=== PATIENT | male | born 1950 | race Caucasian/White ===

== ENCOUNTER 2020-02-04 14:48 | Outpatient (CLI) | payer MEDICARE, MEDICAID, SELFPAY ==
--- NOTE | 2020-02-04 14:58 | XRR_ITS ---
PROCEDURE INFORMATION: Exam: XR Right Femur Exam date and time: 02/04/2020 3:31 PM Age: 69 years old Clinical indication: Injury or trauma; Initial encounter; Swelling, leg or foot; Blunt trauma; Thigh or upper leg and knee and lower leg; Right; Injury details: Fall 1 week ago; Additional info: Right leg pain TECHNIQUE: Imaging protocol: XR Right femur. Views: 2 views. COMPARISON: CR XR knee RT 3V* [id number] 02/04/2020 3:05 PM FINDINGS: Bones/joints: No radiographic evidence of acute fracture or dislocation. Alignment anatomic. Mild degenerative changes. Soft tissues: Grossly unremarkable. XR/XR femur RT min 2V* [id number] IMPRESSION: No acute osseous abnormality.
--- NOTE | 2020-02-04 14:58 | XRR_ITS ---
PROCEDURE INFORMATION: Exam: XR Right Knee Exam date and time: 02/04/2020 3:02 PM Age: 69 years old Clinical indication: Injury or trauma; Initial encounter; Swelling, leg or foot; Blunt trauma; Knee; Right; Injury details: Fall 1 week ago; Additional info: Right knee leg pain TECHNIQUE: Imaging protocol: XR Right knee. Views: 3 views. COMPARISON: No relevant prior studies available. FINDINGS: Bones/joints: No radiographic evidence of acute fracture or dislocation. Alignment anatomic. Joint spaces preserved. Chondrocalcinosis. Small effusion. Soft tissues: Mild soft tissue swelling. XR/XR knee RT 3V* [id number] IMPRESSION: No acute osseous abnormality.
--- NOTE | 2020-02-04 14:58 | XRR_ITS ---
PROCEDURE INFORMATION: Exam: XR Right Tibia and Fibula Exam date and time: 02/04/2020 3:02 PM Age: 69 years old Clinical indication: Injury or trauma; Initial encounter; Swelling, leg or foot; Blunt trauma; Thigh or upper leg and knee and lower leg; Right; Injury details: Fall 1 week ago; Additional info: R leg pain TECHNIQUE: Imaging protocol: XR Right tibia and fibula. Views: 2 views. COMPARISON: CR XR knee RT 3V* [id number] 02/04/2020 3:05 PM FINDINGS: Bones/joints: No radiographic evidence of acute fracture or dislocation. Alignment anatomic. Joint spaces preserved. Soft tissues: Diffuse soft tissue swelling. XR/XR tibia fibula RT 2V [id number] IMPRESSION: No acute osseous abnormality.
== END 2020-02-04 14:49 | disposition home or self-care (01) ==
LOC: RAD 14:55
PROVIDERS: PCP Family Medicine; Visit Provider Family Medicine
DX: M79.604 Pain in right leg (principal); M25.561 Pain in right knee; M79.89 Other specified soft tissue disorders
CPT/HCPCS: 73552; 73562; 73590

== ENCOUNTER 2020-03-07 17:28 | Emergency (ER) | payer MEDICARE, MEDICAID, SELFPAY ==
[2020-03-07 17:29] VITALS: BP 117/65; PULSE 100; RESP 16; TEMP 36.8; O2SAT 97; BMI 31.9
--- NOTE | 2020-03-07 17:52 | XRR_ITS ---
PROCEDURE INFORMATION: Exam: XR Chest, 1 View Exam date and time: 03/07/2020 6:08 PM Age: 69 years old Clinical indication: Other: High hr, dizziness; Prior surgery; Surgery type: Cabg; Additional info: Dizziness, hypotension x 2 days TECHNIQUE: Imaging protocol: XR of the chest Views: 1 view. COMPARISON: CR Chest 1 [place] [id number] 04/26/2019 10:56 AM FINDINGS: No focal pulmonary consolidation is demonstrated on this single frontal image. No significant obscuration of the lateral costophrenic angles is demonstrated. No significant vascular congestion is demonstrated. Visualized cardiac silhouette size appears within normal limits. Thoracic aorta is unfolded. There are changes from median sternotomy. XR/XR chest 1V portable [id number] IMPRESSION: No acute pulmonary process is demonstrated.
--- NOTE | 2020-03-07 17:52 | ECG_ITS ---
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 Measurements Intervals [place] Rate: 97 P: 42 HI: 214 QRS: -8 QRSD: 152 T: 129 QT: 369 QTc: 471 Interpretive Statements SINUS RHYTHM WITH FIRST DEGREE AV BLOCK LEFT BUNDLE BRANCH BLOCK [120+ ms QRS DURATION, 80+ ms Q/S IN V1/V2, 85+ ms R IN I/aVL/V5/V6] Compared to ECG 04/26/2019 11:16:48 No significant changes Electronically Signed On 03-07-2020 20:13:57 CDT by Corina Edwards M.D. [id number]
[2020-03-07 18:27] LABS: Basophils # 0.1 10^3/uL (0.0-0.1); Basophils % 0.9 %; Eosinophils # 0.3 10^3/uL (0.0-0.8); Eosinophils % 3.8 %; Hematocrit 37.3 % (42.0-52.0); Hemoglobin 11.4 g/dL (11.7-16.6); Lymphocytes # 1.2 10^3/uL (0.8-4.8); Lymphocytes % 18.5 %; Mean Corpuscular HGB Conc 30.6 g/dL (30.0-36.0); Mean Corpuscular Hemoglobin 27.5 pg (28.0-34.0); Mean Corpuscular Volume 90.1 fL (80-94); Mean Platelet Volume 9.9 fL (7.4-10.4); Monocytes # 0.7 10^3/uL (0.2-0.9); Monocytes % 10.2 %; Neutrophils # 4.33 10^3/uL (1.8-7.7); Neutrophils % 66.1 %; Nucleated Red Blood Cells % 0 %; Platelet Count 277 10^3/cmm (130-400); Red Blood Count 4.14 10^6/uL (4.1-5.3); Red Cell Distribution Width 13.2 % (12.1-15.1); White Blood Count 6.6 10^3/uL (4.0-10.0)
--- NOTE | 2020-03-07 18:47 | ED_ITS ---
HPI - Dizziness General: Chief Complaint: Dizziness Stated Complaint: ELEVATED HR/ DIZZY Time Seen by Provider: 03/07/20 17:34 History of Present Illness: HPI Narrative: This patient is a 69-year-old gentleman who presents today with dizziness and fast heart rate. He has a history of some cardiac problems and saw Dr. Ramos a few weeks ago. He told him that he been having some chest pains off and on and Dr. Ramos prescribed some isosorbide mononitrate. The patient was not sure he wanted to take it and so has not been taking it until today. He had some chest pains yesterday for which he took a regular sublingual nitro. He said today he was thinking about the chest pain and decided to call the pharmacist to ask about the medication. The pharmacist told him that the purpose of it was to prevent him from having those episodes of chest pain so he decided he would take it. Rather than taking the 1 pill that is prescribed he took 1-1/2 pills and crushed it before taking it. Shortly afterward he noted that he was quite dizzy and lightheaded. He took his blood pressure and his heart rate was high and his blood pressure was low. Eventually he decided that he should call the ambulance. They brought him in with heart rate of just over 100 and a blood pressure of 120 systolic. He reports that he is feeling better now. He says it has been about 3 hours since he took the medication. He realizes that what he did was not a good idea. He h as not had any chest pain today however. MD elicited complaint: dizziness and lightheadedness Onset (ago): hour(s) (3) Timing: sudden onset Severity: moderate Associated symptoms: Reports chest pain; Denies chills, headache(s), malaise, nausea or vomiting Associated neuro symptoms: Deny numbness in extremities Review of Systems General: Reports: 10 or more systems reviewed and unremarkable except in HPI and below Const: Denies: fever(s), chills, fatigue or malaise Eyes: Denies: change in vision ENMT: Denies: odynophagia Card: Reports: chest pain; Denies: swelling of feet/ankles Resp: Denies: dyspnea, productive cough or non-productive cough GI: Denies: abdominal pain, nausea or vomiting : Denies: flank pain Musc: Denies: neck pain or back pain Skin/Breast: Denies: rash Neuro: Denies: headache(s), numbness in extremities or weakness in extremities Noel/Lymph: Denies: easy bruising or easy bleeding PFSH ED PFSH: Medical History Anemia Arthritis Atypical chest pain Chest pain Chronic back pain Congestive heart failure Diastolic heart failure GI bleed Hypertension Transient ischemic attack Surgical History Aortic valve replaced H/O aortic valve replacement Hx of appendectomy Previous back surgery Family History Other Congenital heart disease Social History Smoking and tobacco status: former smoker Alcohol intake: current Alcohol intake frequency: 0-2 Drinks per Day Alcohol type: beer Physical Exam Const: COMMON NORMALS: no acute distress, patient oriented x3, no limitations and alert GENERAL APPEARANCE: cooperative and comfortable HENMT: HEAD & SCALP: normal to inspection FACE & SINUS: normal facial exam Eye: GENERAL EYE: appearance normal, both eyes and all related structures Neck/C-Spine: COMMON NORMALS: supple, no meningeal signs and no JVD Chest: COMMONS NORMALS: normal inspection of the chest Resp: COMMON NORMALS: normal respiratory effort, No use of accessory muscles and clear to auscultation bilaterally AUSCULTATION: clear to auscultation bilaterally Cardio: COMMON NORMALS: no JVD, regular rate and regular rhythm RATE: regular rate RHYTHM: regular rhythm HEART SOUNDS: Murmur heart sound present GI: COMMON NORMALS: Normal to inspection, nondistended, normoactive bowel sounds present, Soft to palpation and non-tender INSPECTION: Yes normal to inspection AUSCULTATION: Yes normoactive bowel sounds PALPATION: Yes Soft to palpation Back/Pelvis: COMMON NORMALS: thoracic and lumbar spine normal to inspection Extremity: COMMON NORMALS: normal to inspection Neuro: COMMON NORMALS: patient oriented x3, moves all extremities, no focal motor deficits and no sensory deficits noted SENSORIUM/ORIENTATION: Yes alert MENINGEAL SIGNS: Yes no meningeal signs Psych: COMMON NORMALS: mental status grossly normal, cooperative and normal affect Skin: COMMON NORMALS: no rashes or lesions noted and turgor normal GENERAL SKIN EXAM: no rashes or lesions noted and turgor normal Course Vital Signs: Vital signs: Vital Signs Temperature 98.3 F 03/07/20 17:29 Pulse Rate 79 03/08/20 00:01 Respiratory Rate 18 03/08/20 00:01 Blood Pressure 113/73 03/08/20 00:01 Pulse Oximetry 98 03/08/20 00:01 MDM - Dizziness MDM Narrative: Medical decision making narrative: Suspect his symptoms are related to taking too much, crushed isosorbide mononitrate. Work-up was benign. Between his 0 and 2-hour troponin he did have a delta of 4.5. This was borderline for some concern and so he agreed to wait for the third troponin. There was not a significant increase at that time. He was feeling well and his vital signs have been fine. He was eager to go home and was discharged. Lab Data: Labs: Lab Results 03/07/20 03/07/20 03/07/20 Range/Units 17:40 17:40 17:52 WBC 6.6 (4.0-10.0) 10^3/ uL RBC 4.14 (4.1-5.3) 10^6/u L Hgb 11.4 L (11.7-16.6) g/dL Hct 37.3 L (42.0-52.0) % MCV 90.1 (80-94) fL MCH 27.5 L (28.0-34.0) pg MCHC 30.6 (30.0-36.0) g/dL RDW 13.2 (12.1-15.1) % Plt Count 277 (130-400) 10^3/c mm MPV 9.9 (7.4-10.4) fL Neut % (Auto) 66.1 % Lymph % (Auto) 18.5 % [place] % (Auto) 10.2 % Eos % (Auto) 3.8 % Baso % (Auto) 0.9 % Neut # (Auto) 4.33 (1.8-7.7) 10^3/u L Lymph # (Auto) 1.2 (0.8-4.8) 10^3/u L [place] # (Auto) 0.7 (0.2-0.9) 10^3/u L Eos # (Auto) 0.3 (0.0-0.8) 10^3/u L Baso # (Auto) 0.1 (0.0-0.1) 10^3/u L Nucleated RBC % (a uto) 0 % Nucleated RBCs # 0.0 /100WBC Sodium 136 (136-145) mmol/L Potassium 3.5 (3.5-5.1) mmol/L Chloride 98 (98-107) mmol/L Carbon Dioxide 27 (22-29) mmol/L Anion Gap 14.5 (5-19) BUN 16 (8-23) mg/dL Creatinine 1.0 (0.7-1.2) mg/dL GFR Calculation 73.9 L (90-130) mL/min Glucose 139 H (65-115) mg/dL Calculated Osmolal ity 281 L (285-295) mOsm/k g Calcium 8.9 (8.5-10.5) mg/dL Total Bilirubin 0.2 (0.15-1.2) mg/dL AST 20 (0-40) U/L ALT 15 (0-41) U/L Alkaline Phosphata se 105 (40-130) IU/L Troponin T Baselin e 17 H (0-15) ng/L Troponin T 120 Min [place] (0-15) ng/L Delta Troponin T (0-10) ABS# Troponin T Hi Sens 6Hr (0-15) ng/L Troponin T Hi Sens 6Hr Delta (0-12) ng/L Total Protein 8.0 (6.6-8.7) g/dL Albumin 3.8 (3.5-5.2) g/dL Globulin 4.2 (1.3-4.6) g/dL Digoxin (0.6-1.2) ng/mL 03/07/20 03/07/20 03/07/20 Range/Units 20:02 20:02 22:55 WBC (4.0-10.0) 10^3/ uL RBC (4.1-5.3) 10^6/u L Hgb (11.7-16.6) g/dL Hct (42.0-52.0) % MCV (80-94) fL MCH (28.0-34.0) pg MCHC (30.0-36.0) g/dL RDW (12.1-15.1) % Plt Count (130-400) 10^3/c mm MPV (7.4-10.4) fL Neut % (Auto) % Lymph % (Auto) % [place] % (Auto) % Eos % (Auto) % Baso % (Auto) % Neut # (Auto) (1.8-7.7) 10^3/u L Lymph # (Auto) (0.8-4.8) 10^3/u L [place] # (Auto) (0.2-0.9) 10^3/u L Eos # (Auto) (0.0-0.8) 10^3/u L Baso # (Auto) (0.0-0.1) 10^3/u L Nucleated RBC % (a uto) % Nucleated RBCs # /100WBC Sodium (136-145) mmol/L Potassium (3.5-5.1) mmol/L Chloride (98-107) mmol/L Carbon Dioxide (22-29) mmol/L Anion Gap (5-19) BUN (8-23) mg/dL Creatinine (0.7-1.2) mg/dL GFR Calculation (90-130) mL/min Glucose (65-115) mg/dL Calculated Osmolal ity (285-295) mOsm/k g Calcium (8.5-10.5) mg/dL Total Bilirubin (0.15-1.2) mg/dL AST (0-40) U/L ALT (0-41) U/L Alkaline Phosphata se (40-130) IU/L Troponin T Baselin e (0-15) ng/L Troponin T 120 Min [place] 21.48 H (0-15) ng/L Delta Troponin T 4.48 (0-10) ABS# Troponin T Hi Sens 6Hr 22.11 H (0-15) ng/L Troponin T Hi Sens 6Hr Delta 5.11 (0-12) ng/L Total Protein (6.6-8.7) g/dL Albumin (3.5-5.2) g/dL Globulin (1.3-4.6) g/dL Digoxin 0.9 (0.6-1.2) ng/mL Discharge Plan Discharge Patient Disposition: Home Clinical Impression: Chest pain Qualifiers: Chest pain type: unspecified Qualified Code(s): R07.9 - Chest pain, unspecified Medication reaction Qualifiers: Encounter type: initial encounter Qualified Code(s): T50.905A - Adverse effect of unspecified drugs, medicaments and biological substances, initial encounter Condition: Stable Prescriptions: No Action nitroglycerin [Nitrostat] 0.4 mg tablet, sublingual 0.4 mg SUBLINGUAL Q5M PRNRF: 0 albuterol sulfate [ProAir HFA] 90 mcg/actuation HFA aerosol inhaler 2 puff INHALATION Q6H PRNRF: 0 digoxin 125 mcg (0.125 mg) tablet 125 mcg PO QDAY RF: 0 senna-docusate sodium Tablet PO .twice a day RF: 0 aspirin [Adult Low Dose Aspirin] 81 mg tablet,delayed release (DR/EC) 81 mg PO QDAY RF: 0 tamsulosin 0.4 mg capsule 0.4 mg PO QDAY RF: 0 hydromorphone [Dilaudid] 4 mg tablet 4 mg PO Q4H PRNRF: 0 alprazolam 0.25 mg tablet 0.5 mg PO BID PRN (Reason: anxiety) RF: 0 furosemide 20 mg tablet 40 mg PO QDAY RF: 0 morphine 200 mg tablet extended release 200 mg PO Q12H PRN (Reason: pain) RF: 0 potassium chloride 10 mEq tablet,ER particles/crystals 10 meq PO BID RF: 0 isosorbide mononitrate 30 mg tablet extended release 24 hr 30 mg PO DAILY 30 Days Qty: 30 RF: 5 metoprolol tartrate 25 mg tablet 25 mg PO DAILY PRN (Reason: hypertension) 30 Days Qty: 30 RF: 5 warfarin 5 mg tablet 5 mg PO DAILY RF: 0 magnesium oxide 400 mg magnesium tablet 400 mg PO BID Qty: 180 RF: 3 warfarin 3 mg tablet 3 mg PO DAILY Qty: 30 RF: 5 warfarin 2 mg tablet 2 mg PO DAILY 90 Days Qty: 90 RF: 3 warfarin 4 mg tablet 4 mg PO DAILY 90 Days Qty: 90 RF: 3 Discharge Orders: Discharge Order (Routine); Ordered 03/07/20 Ordered By: Cindy Slaughter Referrals: Jesus Nguyen MD [Primary Care Provider] - Discharge Diet: Usual diet Discharge Activity: Resume usual activity Patient Instructions: Chest Pain (ED) Activity Restrictions/Additional Instructions: Follow-up with your doctor for further evaluation if symptoms continue. Do take the isosorbide mononitrate but only as directed. Do not crush medications unless you check with the pharmacist first to see if it safe. Return to the emergency department for any new or worse symptoms. Discharge Date/Time: 03/08/20 00:03 Coding Level of Care Code ED Coat Operator for Adela Fwree Exam Comprehensive
[2020-03-07 19:43] LABS: Alanine Aminotransferase 15 U/L (0-41); Albumin Level 3.8 g/dL (3.5-5.2); Alkaline Phosphatase 105 IU/L (40-130); Anion Gap 14.5 (5-19); Aspartate Amino Transferase 20 U/L (0-40); Blood Urea Nitrogen 16 mg/dL (8-23); Calcium 8.9 mg/dL (8.5-10.5); Carbon Dioxide 27 mmol/L (22-29); Chloride 98 mmol/L (98-107); Globulin 4.2 g/dL (1.3-4.6); Glomerular Filtration Rate 73.9 mL/min (90-130); Glucose 139 mg/dL (65-115); Osmolality Calculated 281 mOsm/kg (285-295); Potassium 3.5 mmol/L (3.5-5.1); Sodium 136 mmol/L (136-145); Total Bilirubin 0.2 mg/dL (0.15-1.2)
[2020-03-07 19:44] LABS: Troponin(5th) Baseline 17 ng/L (0-15)
--- NOTE | 2020-03-07 19:52 | ECG_ITS ---
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 Measurements Intervals [place] Rate: 83 P: 12 RI: 216 QRS: -7 QRSD: 148 T: 121 QT: 371 QTc: 438 Interpretive Statements SINUS RHYTHM WITH FIRST DEGREE AV BLOCK LEFT BUNDLE BRANCH BLOCK [120+ ms QRS DURATION, 80+ ms Q/S IN V1/V2, 85+ ms R IN I/aVL/V5/V6] Compared to ECG 03/07/2020 17:42:57 No significant changes Electronically Signed On 03-07-2020 20:16:47 CDT by Corina Edwards M.D. [id number]
--- NOTE | 2020-03-07 19:56 | PC.NURSE ---
EKG done at 1953 and shown to ER doctor
[2020-03-07 20:24] LABS: Troponin 5 2HR 21.48 ng/L (0-15); Troponin 5 2HR Delta 4.48 ABS# (0-10)
[2020-03-07 21:09] LABS: Digoxin 0.9 ng/mL (0.6-1.2)
[2020-03-07 21:13] VITALS: RESP 16; O2SAT 99
[2020-03-07 21:16] VITALS: BP 100/59; PULSE 80; RESP 18; O2SAT 98
[2020-03-07 21:30] VITALS: BP 100/59; PULSE 81; RESP 17; O2SAT 96
[2020-03-07 22:30] VITALS: BP 109/65; PULSE 82; RESP 18; O2SAT 93
[2020-03-07 23:27] LABS: Troponin 5 6HR 22.11 ng/L (0-15); Troponin 5 6HR Delta 5.11 ng/L (0-12)
[2020-03-07 23:31] VITALS: BP 122/68; PULSE 81; RESP 16; O2SAT 94
[2020-03-08 00:01] VITALS: BP 113/73; PULSE 79; RESP 18; O2SAT 98
== END 2020-03-08 00:03 | disposition home or self-care (01) ==
PROVIDERS: Emergency Provider Emergency Medicine; PCP Family Medicine
DX: R07.9 Chest pain, unspecified (principal); T50.905A Adverse effect of unspecified drugs, medicaments and biological substances, initial encounter; Z79.82 Long term (current) use of aspirin; Z79.01 Long term (current) use of anticoagulants; I50.9 Heart failure, unspecified; I50.30 Unspecified diastolic (congestive) heart failure; Z86.73 Personal history of transient ischemic attack (TIA), and cerebral infarction without residual deficits; Z87.891 Personal history of nicotine dependence
CPT/HCPCS: 12345; 36415; 71045; 80053; 80162; 84484; 85025; 93005; 99283; 99284

== ENCOUNTER 2020-04-18 21:23 | Observation (INO) | payer MEDICARE, MEDICAID, SELFPAY ==
--- NOTE | 2020-04-18 21:32 | XRR_ITS ---
PROCEDURE INFORMATION: Exam: XR Chest, 1 View Exam date and time: 04/18/2020 9:48 PM Age: 69 years old Clinical indication: Chest pain; Additional info: Cp TECHNIQUE: Imaging protocol: XR of the chest Views: 1 view. COMPARISON: CR XR chest 1V portable [id number] 03/07/2020 5:57 PM FINDINGS: Lungs: Unremarkable. No consolidation. Pleural space: Unremarkable. No pleural effusion. No pneumothorax. Heart/Mediastinum: Cardiomegaly. Bones/joints: Sternotomy wires. XR/XR chest 1V portable [id number] IMPRESSION: Negative for infiltrate.
--- NOTE | 2020-04-18 21:32 | ECG_ITS ---
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 Measurements Intervals [place] Rate: 85 P: 41 [place]: 219 QRS: -24 QRSD: 158 T: 131 QT: 378 QTc: 451 Interpretive Statements SINUS RHYTHM WITH FIRST DEGREE AV BLOCK LEFT BUNDLE BRANCH BLOCK [120+ ms QRS DURATION, 80+ ms Q/S IN V1/V2, 85+ ms R IN I/aVL/V5/V6] Compared to ECG 03/07/2020 20:00:50 No significant changes Electronically Signed On 04-19-2020 13:18:54 CDT by Tracee Quiñones M.D. [id number] omar
[2020-04-18 21:43] VITALS: BP 152/83; PULSE 90; RESP 16; TEMP 36.9; O2SAT 99; BMI 31.3
[2020-04-18 21:52] VITALS: BP 152/83; PULSE 82; RESP 16; O2SAT 99
[2020-04-18 21:54] LABS: Basophils # 0.1 10^3/uL (0.0-0.1); Basophils % 0.4 %; Eosinophils % 0.3 %; Hematocrit 41.3 % (42.0-52.0); Lymphocytes # 2.2 10^3/uL (0.8-4.8); Lymphocytes % 18.1 %; Mean Corpuscular HGB Conc 31.5 g/dL (30.0-36.0); Mean Corpuscular Hemoglobin 27.3 pg (28.0-34.0); Mean Corpuscular Volume 86.8 fL (80-94); Mean Platelet Volume 9.6 fL (7.4-10.4); Monocytes # 0.7 10^3/uL (0.2-0.9); Monocytes % 6.1 %; Neutrophils # 9.02 10^3/uL (1.8-7.7); Nucleated Red Blood Cells % 0 %; Platelet Count 331 10^3/cmm (130-400); Red Blood Count 4.76 10^6/uL (4.1-5.3); Red Cell Distribution Width 13.2 % (12.1-15.1); White Blood Count 12.2 10^3/uL (4.0-10.0)
[2020-04-18 22:20] LABS: Troponin(5th) Baseline 18 ng/L (0-15)
[2020-04-18 22:27] LABS: Alanine Aminotransferase 12 U/L (0-41); Anion Gap 15.4 (5-19); Aspartate Amino Transferase 16 U/L (0-40); Blood Urea Nitrogen 22 mg/dL (8-23); Calcium 8.9 mg/dL (8.5-10.5); Carbon Dioxide 29 mmol/L (22-29); Chloride 91 mmol/L (98-107); Creatine Phosphokinase 55 U/L (39-308); Glomerular Filtration Rate 73.9 mL/min (90-130); Glucose 143 mg/dL (65-115); NT Pro B Type Natriuretic Pept 319 pg/mL (0-125); Osmolality Calculated 273 mOsm/kg (285-295); Potassium 3.4 mmol/L (3.5-5.1); Sodium 132 mmol/L (136-145); Total Bilirubin 0.2 mg/dL (0.15-1.2); Total Protein 8.3 g/dL (6.6-8.7)
[2020-04-18 22:28] LABS: Albumin Level 4.1 g/dL (3.5-5.2); Alkaline Phosphatase 123 IU/L (40-130); Globulin 4.2 g/dL (1.3-4.6)
[2020-04-18 23:06] VITALS: BP 133/77; PULSE 67; RESP 16; O2SAT 99
--- NOTE | 2020-04-18 23:32 | ECG_ITS ---
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 Measurements Intervals [place] Rate: 67 P: 37 NM: 222 QRS: -18 QRSD: 160 T: 126 QT: 403 QTc: 428 Interpretive Statements SINUS RHYTHM WITH FIRST DEGREE AV BLOCK LEFT BUNDLE BRANCH BLOCK [120+ ms QRS DURATION, 80+ ms Q/S IN V1/V2, 85+ ms R IN I/aVL/V5/V6] Compared to ECG 03/07/2020 20:00:50 No significant changes Electronically Signed On 04-19-2020 13:24:02 CDT by Tracee Quiñones M.D. [id number]
--- NOTE | 2020-04-18 23:51 | PM.HP ---
Providers/Chief Complaint Primary Care Provider: Jesus Nguyen MD Chief Complaint: hx angina, chest pain resolved History of Present Illness Andrea Hebert is a 69 year old male who presents to the hospital with chest discomfort. He reports around 6:30 PM he was sitting watching TV when he had pressure in his chest, substernal. May have radiated more to the left side. He reports he has chest discomfort on occasion but this was different somehow. He thinks his heart rate was approximately 160 at some point during this as he has a monitor but this is hard to clarify. As he was feeling bad he took a half a pill of metoprolol(which he has not been taking regularly lately), drank 1 beer and had 1 Xanax. He reports this slowly improved his discomfort but did not get rid of it completely. He eventually did get a nitroglycerin that helped significantly at home and came to the hospital. Currently he is chest discomfort free. In reviewing his cardiology visits, in February, it appears he was having atypical chest discomfort episodes but did not want to do nuclear stress test at that time. He reports no reliably exertional chest discomfort, and reports most of his chest discomfort occurs 2 times a week when he has a hard bowel movement from taking his chronic pain medication. He has not been sick lately with any fever. He has not had nausea or vomiting. Some constipation. He has not had COVID nor been exposed to it. Review of Systems General: Reports: 10 or more systems reviewed and unremarkable except in HPI and below Const: Denies: fever(s) or chills Eyes: Denies: change in vision ENMT: Denies: throat pain Card: Reports: chest pain; Denies: palpitations Resp: Denies: dyspnea GI: Denies: abdominal pain, nausea or vomiting : Denies: flank pain Musc: Denies: neck pain Skin/Breast: Denies: rash Neuro: Denies: headache(s) Psych: Reports: anxiety Endo: Denies: polyuria Noel/Lymph: Denies: easy bruising All/Imm: Denies: urticaria Medications/Allergies Home Medications Medication Instructions Recorded Confirmed Last Taken Type warfarin 5 mg tablet 5 mg PO DAILY tab 08/21/19 04/15/20 Unknown History albuterol sulfate 90 mcg/actuation 2 puff INHALATION Q6H PRN 08/30/19 04/11/20 Unknown History aerosol inhaler aspirin 81 mg tablet,delayed 81 mg PO QDAY 08/30/19 04/11/20 Unknown History release digoxin 125 mcg (0.125 mg) tablet 125 mcg PO QDAY 08/30/19 04/11/20 Unknown History hydromorphone 4 mg tablet 4 mg PO Q4H PRN 08/30/19 04/11/20 Unknown History nitroglycerin 0.4 mg sublingual 0.4 mg SUBLINGUAL Q5M PRN 08/30/19 04/11/20 Unknown History tablet senna-docusate sodium tab PO .twice a day tab 08/30/19 04/11/20 Unknown History tamsulosin 0.4 mg capsule 0.4 mg PO QDAY 08/30/19 04/11/20 Unknown History magnesium oxide 400 mg PO BID #180 tab 10/02/19 04/11/20 Unknown Rx warfarin 3 mg tablet 3 mg PO DAILY #30 tab 10/04/19 04/15/20 Unknown Rx warfarin 2 mg tablet 2 mg PO DAILY 90 Days #90 tab 01/15/20 04/15/20 Unknown Rx warfarin 4 mg tablet 4 mg PO DAILY 90 Days #90 tab 01/15/20 04/15/20 Unknown Rx alprazolam 0.25 mg tablet 0.5 mg PO BID PRN tab 02/25/20 04/11/20 Unknown History furosemide 20 mg tablet 40 mg PO QDAY tab 02/25/20 04/11/20 Unknown History metoprolol tartrate 25 mg tablet 25 mg PO DAILY PRN 30 Days #30 tab 02/25/20 04/11/20 Unknown Rx morphine 200 mg tablet,extended 200 mg PO Q12H PRN tab 02/25/20 04/11/20 Unknown History release potassium chloride 10 mEq 10 meq PO BID tab 02/25/20 04/11/20 Unknown History tablet,extended release(part/cryst) methylprednisolone 4 mg tablets in See Rx Instructions PO PER PKG DIR 04/11/20 04/11/20 Unknown Rx a dose pack #21 each Allergies Allergy/AdvReac Type Severity Reaction Status Date / Time butorphanol Allergy Unknown Verified 04/11/20 12:53 methadone Allergy Unknown Verified 04/11/20 12:53 nalbuphine Allergy Unknown Verified 04/11/20 12:53 pentazocine Allergy Unknown Verified 04/11/20 12:53 PFSH Acute PFSH: Medical History (Updated 04/19/20 @ 01:27 by Harsh Allred MD) Anemia Anxiety Arthritis Atrial fibrillation This is not confirmed in his old records but patient believes this is the reason he is on digoxin when asked. Atypical chest pain BPH (benign prostatic hyperplasia) Chest pain Chronic back pain Congestive heart failure Diastolic heart failure GI bleed History of amputation of left great toe Hypertension Transient ischemic attack Surgical History (Updated 04/19/20 @ 01:27 by Harsh Allred MD) Aortic valve replaced Mechanical. On anticoagulation. History of hernia repair History of knee surgery Hx of appendectomy Previous back surgery Family History Other Congenital heart disease Social History Smoking and tobacco status: former smoker Alcohol intake: current Alcohol intake frequency: 0-2 Drinks per Day Alcohol type: beer Vitals/I&O/Wt Last Vital Signs Temp 98.5 F 04/18/20 21:43 Pulse 67 04/18/20 23:06 Resp 16 04/18/20 23:06 BP 133/77 04/18/20 23:06 Pulse Ox 99 04/18/20 23:06 Weight last 48 hrs Weight 93.44 kg Physical Exam Narrative: EXAM NARRATIVE: General exam is a white male, anxious but no apparent distress. Denies chest discomfort. HEENT: Pupils equally round. Oropharynx clear. Neck is supple no lymphadenopathy or thyromegaly Cardiovascular regular rate and rhythm. Click noted. Lungs clear no wheezing or crackles Abdomen is soft nontender with positive bowel sounds. No obvious organomegaly was deferred Extremities show 1+ edema bilaterally Skin no rash Neuro no focal deficits Data : 04/18/20 21:13 04/18/20 21:13 Other data: Straight sinus rhythm, with left bundle branch block Chest x-ray negative for infiltrate INR is 2.10 LFTs normal Initial troponin XVIII, 48 at 120 minutes giving a delta F 30 BNP 319 Digoxin level 0.8 A&P Assessment and plan (1) Chest pain: Chest discomfort is concerning although atypical. Delta troponin is significant. Cardiology consultation Nitroglycerin ointment Statin Beta-alexis, metoprolol 12.5 mg twice daily. Note that he has not been taking his beta-alexis at home recently until tonight. Telemetry Hold Coumadin, transition to Lovenox. As INR is already less than 2.5 will make this transition now. Check lipid panel Status: Acute Qualifiers: Chest pain type: unspecified Qualified Code(s): R07.9 - Chest pain, unspecified (2) Elevated troponin: See notations above. Cannot rule out non-ST elevation [place] or demand ischemia. Note the patient may have had tachyarrhythmia at home. Check TSH, magnesium, telemetry monitoring Status: Acute (3) Hypokalemia: Supplementation Status: Acute (4) Aortic valve replaced: Hold Coumadin Anticoagulation with Lovenox. He will be getting another INR in just several hours and I would like to see this prior to ordering an full dose anticoagulation in case INR is on its way up. Status: Acute Additional A&P Information Hyperglycemia. Check hemoglobin A1c. History of CHF, currently compensated. Check echocardiogram Chronic pain. Continue pain medication. Doses are significant. I spoke with pharmacy to confirm doses. Patient complains of insomnia nightly. Add trazodone dose at night. History of hypertension History of TIA Anxiety Multiple other medical problems as outlined in his past medical history. Full code SCDs for DVT prophylaxis along with anticoagulation Attestations Medical Necessity Statement*: Will need less than 2 midnight stay for evaluation of chest discomfort and elevated troponin. Time Spent in Patient Care: Greater than 35 minutes Coding Level of Care Code Acute Document Management Specialist for Adela Domingo Diagnoses Chest pain R07.9 Chest pain type: unspecified Elevated troponin R79.89 Hypokalemia E87.6 Aortic valve replaced Z95.2
[2020-04-19] VITALS (22 sets, daily range): BP systolic 101–155; BP diastolic 53–86; PULSE 60–80; RESP 10–20; TEMP 36.4–36.8; O2SAT 92–100
[2020-04-19 01:12] LABS: Digoxin 0.8 ng/mL (0.6-1.2)
--- NOTE | 2020-04-19 01:26 | USCV_ITS ---
Andrea Hebert Age: 69 Gender: M : 1950 Exam Date: 04/19/2020 06:36 Ordering Phys: Harsh Allred MD Technologist: Nathalia Anglin [place] [facility] [place]: History of aortic valve replacement BP: 101 / 53 HR: 64 Rhythm: Sinus Technical Quality: Technically difficult study MEASUREMENTS (Male / Female) Normal Values 2D ECHO LV Diastolic Diameter PLAX 4.8 cm 4.2 - 5.9 / 3.9 - 5.3 cm LV Systolic Diameter PLAX 3.7 cm IVS Diastolic Thickness 2.3 cm 0.6 - 1.0 / 0.6 - 0.9 cm IVS Systolic Thickness 2.0 cm LVPW Diastolic Thickness 1.1 cm 0.6 - 1.0 / 0.6 - 0.9 cm LVPW Systolic Thickness 1.9 cm LVOT Diameter 2.1 cm LV Ejection Fraction 2D Teich 47.9 % LV Ejection Fraction MOD 2C 48.8 % LV Ejection Fraction 2C AL 50.0 % LA Diameter 3.8 cm LA Width 4.0 cm LA Height 6.5 cm RA Width 3.4 cm RA Height 5.1 cm Aorta at Sinotubular Diameter 2.9 cm M-MODE LV Diastolic Diameter MM 6.9 cm 4.2 - 5.9 / 3.9 - 5.3 cm LV Systolic Diameter MM 5.6 cm LV Ejection Fraction MM Teich 37.5 % IVS Diastolic Thickness MM 0.9 cm 0.6 - 1.0 / 0.6 - 0.9 cm IVS Systolic Thickness MM 1.1 cm LVPW Diastolic Thickness MM 1.0 cm 0.6 - 1.0 / 0.6 - 0.9 cm LVPW Systolic Thickness MM 1.6 cm Aortic Annulus Diameter 4.0 cm LA Ao Ratio MM 0.9 MV E Point Septal Separation 0.8 cm DOPPLER AV Peak Velocity 191.0 cm/s LVOT Peak Velocity 76.0 cm/s AV Area Cont Eq vti 1.4 cm squared AV Area Cont Eq pk 1.3 cm squared MV Area PHT 3.3 cm squared Mitral E to A Ratio 0.8 MV E' Velocity 9.0 cm/s Mitral E to MV E' Ratio 12.5 Mitral E to LV E' Lateral Ratio 11.3 Mitral E to LV E' Septal Ratio 14.0 TV Peak E Velocity 91.0 cm/s Right Atrial Pressure 3.0 mmHg PV Peak Velocity 86.0 cm/s RV Acceleration Time 0.1 s RV Ejection Time 0.3 s RV AcT/ET 0.4 FINDINGS Left Ventricle Normal left ventricular cavity size. Normal left ventricular systolic function. Left ventricular ejection fraction is estimated at 55-60 %. No diagnostic regional wall motion abnormality based on the study. Abnormal septal motion consistent with conduction abnormality. Right Ventricle Normal right ventricular size and systolic function. Right Atrium Right atrium not well visualized. Probably normal right atrial size. Right atrial pressure estimated at 3 mmHg. Left Atrium Left atrium not well visualized. Mitral Valve Mildly thickened mitral valve. Trace mitral valve regurgitation. Aortic Valve Aortic valve not well visualized. Mechanical prosthetic aortic valve well-seated normal functioning. Aortic valve peak velocity 1.9 m/s, mean gradient 9 mmHg. No significant valvular or perivalvular regurgitation. Tricuspid Valve Structurally normal tricuspid valve. Trace tricuspid valve regurgitation. Pulmonic Valve Pulmonic valve not well visualized. Trace pulmonary valve regurgitation. Pericardium No pericardial effusion. Normal-sized inferior vena cava. Aorta Normal-sized aortic root. CONCLUSIONS 1. Normal left ventricular cavity size and systolic function. Left ventricular ejection fraction is estimated at 55-60 %. No diagnostic regional wall motion abnormality based on the study. 2. Normal right ventricular size and systolic function. 3. Mechanical prosthetic aortic valve well-seated normal functioning. Aortic valve peak velocity 1.9 m/s, mean gradient 9 mmHg. Tracee Quiñones MD (Electronically Signed) Final Date: 19 April 2020 11:57 S
[2020-04-19] MEDS: potassium chloride ER 10 mEq Tablet 40 MEQ PO (01:43)
[2020-04-19] MEDS: trazodone 50 mg Tablet PO ×2 (01:44→20:19)
[2020-04-19] MEDS: nitroglycerin 1 gm/inch oint Pkt 0.5 INCH TOPICAL ×4 (01:44→19:39)
[2020-04-19] MEDS: ALPRAZolam 0.5 mg Tablet PO ×2 (02:31→14:16)
--- NOTE | 2020-04-19 02:48 | ED_ITS ---
HPI - Chest Pain General: Chief Complaint: Chest Pain Stated Complaint: hx angina, chest pain resolved Time Seen by Provider: 04/18/20 21:32 History of Present Illness: HPI narrative: 69-year-old male with a history of aortic valve repair. He has no history of coronary disease. He had an episode of chest pain at home. He has a pulse ox machine/blood pressure monitor, and checked his pulse and blood pressure. His blood pressure was normal, but his heart rate was in the 160s he said. He called EMS. He then took a nitro at home. This relieved his pain. He is pain-free now. His heart rate had improved to the 70s by the time EMS had arrived. He notes some mild nausea and shortness of breath with his symptoms. He denies any fevers, or other significant symptoms. MD complaint: chest pain Pertinent past history: other Onset (ago): minute(s) Timing of current episode: now resolved Prior episodes: Yes Onset: during rest Pain location: substernal Pain radiation: none Relieving factors: nitroglycerin Exacerbating factors: nothing Associated symptoms: Reports dyspnea, nausea and palpitations; Deny abdominal pain, fever(s) or vomiting Review of Systems Const: Denies: fever(s) or chills Eyes: Denies: blurry vision ENMT: Denies: swelling of lips/tongue, post nasal drip or sinus pain Card: Reports: chest pain, palpitations and edema; Denies: irregular heart rhythm, dyspnea on exertion or orthopnea Resp: Reports: dyspnea; Denies: productive cough, non-productive cough or wheezing GI: Reports: nausea; Denies: abdominal pain or vomiting : Denies: difficulty urinating, dysuria, urinary frequency or hematuria Musc: Denies: neck pain or back pain Skin/Breast: Denies: rash, pruritus or erythema Neuro: Denies: headache(s), dizziness or vertigo Psych: Denies: anxiety PFSH ED PFSH: Medical History (Updated 04/19/20 @ 02:52 by Matt Novak DO) Anemia Anxiety Arthritis Atrial fibrillation This is not confirmed in his old records but patient believes this is the reason he is on digoxin when asked. Atypical chest pain BPH (benign prostatic hyperplasia) Chest pain Chronic back pain Congestive heart failure Diastolic heart failure GI bleed History of amputation of left great toe Hypertension Transient ischemic attack Surgical History (Updated 04/19/20 @ 01:27 by Harsh Allred MD) Aortic valve replaced Mechanical. On anticoagulation. History of hernia repair History of knee surgery Hx of appendectomy Previous back surgery Family History Other Congenital heart disease Social History Smoking and tobacco status: former smoker Alcohol intake: current Alcohol intake frequency: 0-2 Drinks per Day Alcohol type: beer Physical Exam Const: GENERAL APPEARANCE: well developed ORIENTATION/CONSCIOUSNESS: Yes oriented to person, Yes oriented to place and Yes oriented to time HENMT: COMMON NORMALS: normocephalic, external ears normal and Normal external nose present HEAD & SCALP: normocephalic; no scalp tenderness FACE & SINUS: normal facial exam NOSE: Normal external nose present and No nasal discharge present EXTERNAL EAR: Yes external ears normal Eye: COMMON NORMALS: Equal, round and reactive pupils present, EOMs intact bilaterally and conjunctivae normal EYELID: eyelids normal CONJUNCTIVA: Yes conjunctivae normal PUPIL: Yes Equal, round and reactive pupils present Neck/C-Spine: GENERAL: No tracheal deviation Chest: COMMONS NORMALS: normal inspection of the chest CHEST: No tenderness Resp: COMMON NORMALS: clear to auscultation bilaterally EFFORT & INSPECTION: No tachypneic, No respiratory distress, No retractions, No uses accessory muscles and No tracheal deviation AUSCULTATION: clear to auscultation bilaterally, no rhonchi, no wheezes and lung sounds not diminished Cardio: COMMON NORMALS: regular rate and regular rhythm RATE: regular rate RHYTHM: regular rhythm HEART SOUNDS: no murmurs PERIPHERAL PULSES: radial pulses present GI: INSPECTION: No abdominal distension AUSCULTATION: No Hyperactive bowel sounds present and No Hypoactive bowel sounds present PALPATION: No Guarding due to palpation present (GI) and No Rigid due to palpation PERCUSSION: no dullness to percussion and no tympanic to percussion Neuro: SENSORIUM/ORIENTATION: Yes oriented to person, Yes oriented to place and Yes oriented to time Psych: COMMON NORMALS: mental status grossly normal Skin: COMMON NORMALS: no rashes or lesions noted GENERAL SKIN EXAM: no rashes or lesions noted Course Consultations: Consultation #1: noam Consultation #2: leticia Vital Signs: Vital signs: Vital Signs Temperature 98.3 F 04/19/20 01:20 Pulse Rate 69 04/19/20 01:20 Respiratory Rate 18 04/19/20 02:30 Blood Pressure 155/86 04/19/20 01:20 Pulse Oximetry 96 04/19/20 01:20 MDM - Chest Pain MDM Narrative: Medical decision making narrative: 77-year-old mildly anxious gentleman. Who presents with a period of chest discomfort, relieved by nitroglycerin. His first troponin was minimally elevated, but his second troponin change significantly with a delta of 30. He has some mild elevation in his white blood cell count. His other laboratories essentially benign. His chest x-ray is negative for any acute change. His EKG shows a chronic left bundle branch block. It is unknown at this point whether his elevation/change in troponin is due to ischemia versus rate demand given his pulse of 160s at home if this is indeed a true reading. He will be observed. Cardiology was consulted from the ER, and will see the patient in the morning. Lab Data: Labs: Lab Results 04/18/20 04/18/20 04/18/20 Range/Units 21:13 21:13 21:13 WBC 12.2 H (4.0-10.0) 10^3/ uL RBC 4.76 (4.1-5.3) 10^6/u L Hgb 13.0 (11.7-16.6) g/dL Hct 41.3 L (42.0-52.0) % MCV 86.8 (80-94) fL MCH 27.3 L (28.0-34.0) pg MCHC 31.5 (30.0-36.0) g/dL RDW 13.2 (12.1-15.1) % Plt Count 331 (130-400) 10^3/c mm MPV 9.6 (7.4-10.4) fL Neut % (Auto) 74.0 % Lymph % (Auto) 18.1 % [place] % (Auto) 6.1 % Eos % (Auto) 0.3 % Baso % (Auto) 0.4 % Neut # (Auto) 9.02 H (1.8-7.7) 10^3/u L Lymph # (Auto) 2.2 (0.8-4.8) 10^3/u L [place] # (Auto) 0.7 (0.2-0.9) 10^3/u L Eos # (Auto) 0.0 (0.0-0.8) 10^3/u L Baso # (Auto) 0.1 (0.0-0.1) 10^3/u L Nucleated RBC % (a uto) 0 % Nucleated RBCs # 0.0 /100WBC PT 24.30 H (12.1-14.9) SECO NDS INR 2.10 H (0.8-1.2) Sodium 132 L (136-145) mmol/L Potassium 3.4 L (3.5-5.1) mmol/L Chloride 91 L (98-107) mmol/L Carbon Dioxide 29 (22-29) mmol/L Anion Gap 15.4 (5-19) BUN 22 (8-23) mg/dL Creatinine 1.0 (0.7-1.2) mg/dL GFR Calculation 73.9 L (90-130) mL/min Glucose 143 H (65-115) mg/dL Calculated Osmolal ity 273 L (285-295) mOsm/k g Calcium 8.9 (8.5-10.5) mg/dL Total Bilirubin 0.2 (0.15-1.2) mg/dL AST 16 (0-40) U/L ALT 12 (0-41) U/L Alkaline Phosphata se 123 (40-130) IU/L Creatine Kinase 55 (39-308) U/L Troponin T Baselin e (0-15) ng/L Troponin T 120 Min zhou (0-15) ng/L Delta Troponin T (0-10) ABS# NT-Pro-B Natriuret Pep 319 H (0-125) pg/mL Total Protein 8.3 (6.6-8.7) g/dL Albumin 4.1 (3.5-5.2) g/dL Globulin 4.2 (1.3-4.6) g/dL 04/18/20 04/18/20 Range/Units 21:13 23:10 WBC (4.0-10.0) 10^3/ uL RBC (4.1-5.3) 10^6/u L Hgb (11.7-16.6) g/dL Hct (42.0-52.0) % MCV (80-94) fL MCH (28.0-34.0) pg MCHC (30.0-36.0) g/dL RDW (12.1-15.1) % Plt Count (130-400) 10^3/c mm MPV (7.4-10.4) fL Neut % (Auto) % Lymph % (Auto) % [place] % (Auto) % Eos % (Auto) % Baso % (Auto) % Neut # (Auto) (1.8-7.7) 10^3/u L Lymph # (Auto) (0.8-4.8) 10^3/u L [place] # (Auto) (0.2-0.9) 10^3/u L Eos # (Auto) (0.0-0.8) 10^3/u L Baso # (Auto) (0.0-0.1) 10^3/u L Nucleated RBC % (a uto) % Nucleated RBCs # /100WBC PT (12.1-14.9) SECO NDS INR (0.8-1.2) Sodium (136-145) mmol/L Potassium (3.5-5.1) mmol/L Chloride (98-107) mmol/L Carbon Dioxide (22-29) mmol/L Anion Gap (5-19) BUN (8-23) mg/dL Creatinine (0.7-1.2) mg/dL GFR Calculation (90-130) mL/min Glucose (65-115) mg/dL Calculated Osmolal ity (285-295) mOsm/k g Calcium (8.5-10.5) mg/dL Total Bilirubin (0.15-1.2) mg/dL AST (0-40) U/L ALT (0-41) U/L Alkaline Phosphata se (40-130) IU/L Creatine Kinase (39-308) U/L Troponin T Baselin e 18 H (0-15) ng/L Troponin T 120 Min zhou 48.70 H (0-15) ng/L Delta Troponin T 30.70 H* (0-10) ABS# NT-Pro-B Natriuret Pep (0-125) pg/mL Total Protein (6.6-8.7) g/dL Albumin (3.5-5.2) g/dL Globulin (1.3-4.6) g/dL Discharge Plan Discharge Patient Disposition: Admitted As Inpatient Admit Provider: Harsh Allred Clinical Impression: Chest pain Qualifiers: Chest pain type: unspecified Qualified Code(s): R07.9 - Chest pain, unspecified Condition: Stable Interventions: ED Discharge Assessment Last Done: 04/19/20 01:20 ED Charges Last Done: 04/19/20 01:20 Discharge Date/Time: 04/19/20 01:39 Coding Level of Care Code ED Research Spec for Chg Fwd Exam Comprehensive
[2020-04-19] MEDS: nitroglycerin 0.4 mg sublingual Tablet SUBLINGUAL (02:58)
--- NOTE | 2020-04-19 03:32 | ECG_ITS ---
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 Measurements Intervals Cecil Rate: 63 P: 24 FL: 237 QRS: -2 QRSD: 148 T: 133 QT: 421 QTc: 432 Interpretive Statements SINUS RHYTHM WITH FIRST DEGREE AV BLOCK LEFT BUNDLE BRANCH BLOCK [120+ ms QRS DURATION, 80+ ms Q/S IN V1/V2, 85+ ms R IN I/aVL/V5/V6] Compared to ECG 04/18/2020 23:00:00 No significant changes Electronically Signed On 04-19-2020 13:21:55 CDT by Tracee Quiñones M.D. [email or web address]
[2020-04-19 06:22] LABS: Basophils # 0.1 10^3/uL (0.0-0.1); Basophils % 0.4 %; Eosinophils # 0.1 10^3/uL (0.0-0.8); Eosinophils % 1.1 %; Hematocrit 38.5 % (42.0-52.0); Hemoglobin 11.9 g/dL (11.7-16.6); Lymphocytes # 2.3 10^3/uL (0.8-4.8); Lymphocytes % 20.2 %; Mean Corpuscular HGB Conc 30.9 g/dL (30.0-36.0); Mean Corpuscular Hemoglobin 27.4 pg (28.0-34.0); Mean Corpuscular Volume 88.5 fL (80-94); Mean Platelet Volume 9.6 fL (7.4-10.4); Monocytes % 8.5 %; Neutrophils # 7.71 10^3/uL (1.8-7.7); Neutrophils % 68.7 %; Nucleated Red Blood Cells % 0 %; Platelet Count 279 10^3/cmm (130-400); Red Blood Count 4.35 10^6/uL (4.1-5.3); Red Cell Distribution Width 13.2 % (12.1-15.1); White Blood Count 11.2 10^3/uL (4.0-10.0)
[2020-04-19 06:32] LABS: INR 2.24 (0.8-1.2)
[2020-04-19 06:39] LABS: Blood Urea Nitrogen 22 mg/dL (8-23); Calcium 8.1 mg/dL (8.5-10.5); Carbon Dioxide 31 mmol/L (22-29); Chloride 95 mmol/L (98-107); Chol HDL Ratio 2.76 mg/dL (1.0-5.00); Cholesterol 182 mg/dL (0-200); Glomerular Filtration Rate 95.6 mL/min (90-130); Glucose 94 mg/dL (65-115); HDL Cholesterol 66 mg/dL (60-100); LDL Cholesterol Calculated 95 mg/dL (50-129); LDL HDL Ratio 1.44 RATIO (0.00-3.22); Osmolality Calculated 276 mOsm/kg (285-295); Sodium 135 mmol/L (136-145); Triglycerides 106 mg/dL (0-150)
[2020-04-19 06:46] LABS: Thyroid Stimulating Hormone 1.38 uIU/mL (0.27-4.20)
[2020-04-19 07:14] LABS: Troponin T (5th) Once 236 ng/L (0-15)
[2020-04-19 08:26] LABS: Estmated Average Glucose 128; Hemoglobin A1C 6.1 % (4.0-6.0)
--- NOTE | 2020-04-19 08:53 | P.PN_ITS ---
Subjective Subjective: Interval history: Chart reviewed, hemodynamically stable, afebrile, cath tomorrow per Cardio. Chest pain free currently. Admits to drinking beer every night and is asking about getting that here as well. Started on heparin drip. Medications: Reviewed: Yes Medication Review Details: Active Medications Generic Name Dose Route Start Last Admin Trade Name Freq PRN Reason Stop Dose Admin Acetaminophen 650 mg 04/19/20 01:20 Tylenol PO Q6H PRN Mild/Mod Pain Or Temp >/= 101 Albuterol Sulfate 2 puff 04/19/20 01:20 Ventolin INHALATION Q6H PRN COUGH Alprazolam 0.5 mg 04/19/20 01:20 04/19/20 02:31 Xanax PO 0.5 mg BID PRN Administration anxiety Aspirin 81 mg 04/19/20 09:00 Aspirin Ec PO DAILY [facility] Atorvastatin Calci um 40 mg 04/19/20 21:00 Lipitor PO BEDTIME [facility] Digoxin 125 mcg 04/19/20 09:00 Lanoxin PO DAILY [facility] Docusate Sodium 100 mg 04/19/20 09:00 Colace PO BID [facility] Furosemide 40 mg 04/19/20 09:00 Lasix PO DAILY [facility] Hydromorphone HCl 4 mg 04/19/20 01:20 04/19/20 02:30 Dilaudid Tab PO 4 mg Q4H PRN Administration PAIN Magnesium Oxide 400 mg 04/19/20 09:00 Magox PO BID [facility] Metoprolol Tartrat e 12.5 mg 04/19/20 09:00 Lopressor PO BID [facility] Morphine Sulfate 200 mg 04/19/20 05:51 Ms Contin PO Q12H PRN pain Nitroglycerin 0.5 inch 04/19/20 01:30 04/19/20 01:44 Nitro-Bid TOPICAL 0.5 inch Q6H HECTOR Administration Nitroglycerin 0.4 mg 04/19/20 02:26 04/19/20 02:58 Nitrostat SUBLINGUAL 0.4 mg Q5M PRN Administration CHEST PAIN Ondansetron HCl 4 mg 04/19/20 01:20 Zofran IVP Q6H PRN vomiting, or N/V if npo Potassium Chloride 10 meq 04/19/20 09:00 Klor-Con 10 PO BID [facility] Tamsulosin HCl 0.4 mg 04/19/20 09:00 Flomax PO DAILY HECTOR Trazodone HCl 50 mg 04/19/20 01:20 04/19/20 01:44 Desyrel PO 50 mg BEDTIME [facility]ECTOR Administration butorphanol Allergy (Verified 04/11/20 12:53) Unknown methadone Allergy (Verified 04/11/20 12:53) Unknown nalbuphine Allergy (Verified 04/11/20 12:53) Unknown pentazocine Allergy (Verified 04/11/20 12:53) Unknown Vitals/I&O/Wt Last Vital Signs Temp 98.3 F 04/19/20 04:00 Pulse 61 04/19/20 04:00 Resp 19 H 04/19/20 04:00 BP 101/53 04/19/20 04:00 Pulse Ox 95 04/19/20 04:00 04/18/20 04/19/20 04/19/20 22:59 06:59 14:59 Intake Total 100 / 100 Balance 100 / 100 Weight last 48 hrs Weight 93.576 kg Weight 93.44 kg Physical Exam Const: COMMON NORMALS: no acute distress, patient oriented x3 and alert GENERAL APPEARANCE: cooperative and comfortable NUTRITIONAL APPEARANCE: obese ORIENTATION/CONSCIOUSNESS: Yes awake HENMT: COMMON NORMALS: normocephalic, atraumatic, hearing grossly normal bilaterally and moist oral mucous membranes HEAD & SCALP: normocephalic and atraumatic Eye: COMMON NORMALS: Equal, round and reactive pupils present, EOMs intact bilaterally and conjunctivae normal CONJUNCTIVA: Yes conjunctivae normal PUPIL: Yes Equal, round and reactive pupils present Neck/C-Spine: COMMON NORMALS: full ROM GENERAL: Yes normal visual inspection and Yes trachea midline Resp: COMMON NORMALS: normal respiratory effort, No retractions, No use of accessory muscles and clear to auscultation bilaterally EFFORT & INSPECTION: Yes able to speak in complete sentences, Yes symmetric chest movement and No tachypneic AUSCULTATION: clear to auscultation bilaterally Cardio: COMMON NORMALS: regular rate, regular rhythm, S1 normal heart sound present, S2 normal heart sound present and No murmurs present (Cardio) RATE: regular rate RHYTHM: regular rhythm HEART SOUNDS: S1 normal heart sound present and S2 normal heart sound present GI: COMMON NORMALS: Normal to inspection, nondistended, normoactive bowel sounds present, Soft to palpation and non-tender INSPECTION: Yes central obesity PALPATION: Yes Soft to palpation Extremity: COMMON NORMALS: normal to inspection, full ROM, no clubbing, cyanosis or edema and no pedal edema Neuro: COMMON NORMALS: patient oriented x3, moves all extremities, no focal motor deficits and no sensory deficits noted SENSORIUM/ORIENTATION: Yes alert Psych: COMMON NORMALS: mental status grossly normal, Normal thought process present, cooperative, normal affect and speech normal SPEECH: Yes normal speech THOUGHT PROCESS: Normal thought process present Skin: COMMON NORMALS: no rashes or lesions noted, no jaundice, no petechiae and no mottling GENERAL SKIN EXAM: no rashes or lesions noted Data : 04/19/20 05:20 04/19/20 05:20 A&P Assessment and plan (1) Elevated troponin: -noted troponin elevation, significant delta; no noted acute ischemic changes on ECG -has hx of atypical chest pain, follows up with Dr. Richard PEREZ -VSS, continue to monitor -Cardiology evaluation appreciated -on BB, ASA, statin -previously wanted to hold off on repeat myocardial perfusion imaging; did have a nuclear stress test done on 02/2018 showing areas of persistently decreased uptake in the inferior wall and apical anterior wall regions suggestive of scarring, no significant coronary ischemia -noted TSH, lipid panel, A1c -Echo: EF=55-60%, no RWMA, mechanical aortic valve well-seated, trace MR, trace TR, trace OH. Previous one done in 09/2018 with G2DD, mild pulmonary HTN; limited study Status: Acute (2) Hypertension: -VSS; continue to monitor -continue oral antihypertensives Status: Chronic Qualifiers: Hypertension type: essential hypertension Qualified Code(s): I10 - Es sential (primary) hypertension (3) Aortic valve replaced: -hx of AV replacement (mechanical), done in 2014 -on AC with coumadin, held here and switched to heparin drip -INR-2.24 Status: Chronic (4) BPH (benign prostatic hyperplasia): -on Flomax Status: Chronic Qualifiers: Lower urinary tract symptom presence: unspecified whether lower urinary tract symptoms present Qualified Code(s): N40.0 - Benign prostatic hyperplasia without lower urinary tract symptoms (5) Congestive heart failure: -no acute exacerbation -Echo as noted above -on oral lasix Status: Chronic Qualifiers: Heart failure chronicity: chronic Heart failure type: diastolic Qualified Code(s): I50.32 - Chronic diastolic (congestive) heart failure Additional A&P Information -mild hypokalemia; resolved, on supplementation -pre-DM, A1c-6.1 -Obesity: BMI-31 kg/m2 -Chronic pain, on chronic narcotics -hx of TIA -Anxiety; on anxiolytics -Chronic normocytic anemia; baseline Hg is around 11 -CKD stage 2, baseline Cr around 0.8-0.9 -NPO after midnight for cath -DVT ppx not needed as on AC -Dispo: home -Code status: FULL code Attestations Medical Necessity Statement*: Patient requires hospitalization for continued management of chest pain, pending cath tomorrow. Time Spent in Patient Care: 16 - 35 minutes (>than 50% of time spent in counselling and/or direct pt care on unit) . Coding Level of Care Code Acute Collective Bargaining Specialist for [facility] Fwd Exam Comprehensive Diagnoses Elevated troponin R79.89 Hypertension I10 Hypertension type: essential hypertension Aortic valve replaced Z95.2 BPH (benign prostatic hyperplasia) N40.0 Lower urinary tract symptom presence: unspecified whether lower urinary tract symptoms present Congestive heart failure I50.32 Heart failure chronicity: chronic Heart failure type: diastolic
[2020-04-19] MEDS: docusate sodium 100 mg Capsule PO ×2 (09:03→17:09)
[2020-04-19] MEDS: digoxin 125 mcg Tablet PO (09:03)
[2020-04-19] MEDS: tamsulosin 0.4 mg Capsule PO (09:03)
[2020-04-19] MEDS: aspirin 81 mg EC Tablet PO (09:04)
[2020-04-19] MEDS: potassium chloride ER 10 mEq Tablet PO ×2 (09:04→17:09)
[2020-04-19] MEDS: metoprolol tartrate 25 mg Tablet 12.5 MG PO ×2 (09:04→17:09)
[2020-04-19] MEDS: magnesium oxide 400 mg tablet PO ×2 (09:04→17:09)
[2020-04-19] MEDS: FUROsemide 40 mg Tablet PO (09:04)
--- NOTE | 2020-04-19 10:10 | P.CONIM_ITS ---
Providers/Reason For Consult Consulting Physican/Specialty*: Dr. Quiñones, cardiology Reason for Consult*: Chest pain Attending Physician: Harini Mckinney MD Primary Care Provider: Jesus Nguyen MD History of Present Illness History of Present Illness Andrea Hebert is a 69 year old male with history of aortic stenosis status post aortic valve replacement with a 23 mm mechanical valve, through a sean- sternotomy approach on 07/01/2015. 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 ?He also had a TIA, a few months later. ?Patient is known to have congestive heart failure ,mostly diastolic failure, hypertension and hyperlipidemia. He also had postop atrial fibrillation and probably has been on digoxin since then. He usually follows up with Dr. Ramos and last saw him on 25 February 2020 given his atypical chest pains he was to undergo myocardial perfusion imaging as an outpatient but Andrea wanted to hold off on that. He presented last night for evaluation of chest discomfort. Pain started around 6:30 PM yesterday while he was watching TV described with some radiation to left side of his chest along with shortness of breath retrosternal in location and feeling of heart racing. No associated nausea vomiting or diaphoresis. He took half a pill of metoprolol, 1 beer and Xanax. This helped his symptoms some. He has been having intermittent episodes of chest discomfort 8-9/10 for last few weeks along with elevated blood pressure and seems like elevated heart rate as well. He was not taking his metoprolol as prescribed but rather as needed. Later on in the night he had chest discomfort again and he came to the ER for further evaluation. EKG showed sinus rhythm with left bundle branch block. I have been asked to assist in evaluating further management. Chest x-ray did not show any acute infiltrates. No fever or chills or contact with any patients with COVID. No other symptoms suggestive of SARS-CoV-2 infection. 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 No hematemesis/ gary. Review of Systems General: Reports: 10 or more systems reviewed and unremarkable except in HPI and below Const: Denies: fever(s), chills or change in weight Eyes: Denies: change in vision ENMT: Denies: throat pain Card: Reports: chest pain and palpitations; Denies: edema or dyspnea on exertion Resp: Denies: dyspnea, productive cough or non-productive cough GI: Denies: abdominal pain, nausea or vomiting : Denies: flank pain or hematuria Musc: Denies: neck pain or extremity swelling Skin/Breast: Denies: rash Neuro: Denies: headache(s) Psych: Reports: anxiety; Denies: depression Endo: Denies: polyuria Noel/Lymph: Denies: easy bruising, petechiae or purpura All/Imm: Denies: urticaria Meds/Allergies Home Medications and Allergies Home Medications Medication Instructions Recorded Confirmed Last Taken Type albuterol sulfate 90 mcg/actuation 2 puff INHALATION Q6H PRN 08/30/19 04/19/20 Unknown History aerosol inhaler aspirin 81 mg tablet,delayed 81 mg PO DAILY 08/30/19 04/19/20 Unknown History release digoxin 125 mcg (0.125 mg) tablet 125 mcg PO DAILY 08/30/19 04/19/20 Unknown History hydromorphone 4 mg tablet 4 mg PO Q4H PRN 08/30/19 04/19/20 Unknown History nitroglycerin 0.4 mg sublingual 0.4 mg SUBLINGUAL Q5M PRN 08/30/19 04/19/20 Unknown History tablet senna-docusate sodium 2 tab PO BID tab 08/30/19 04/19/20 Unknown History tamsulosin 0.4 mg capsule 0.4 mg PO DAILY 08/30/19 04/19/20 Unknown History magnesium oxide 400 mg PO BID #180 tab 10/02/19 04/19/20 Unknown Rx warfarin 3 mg tablet 3 mg PO DAILY #30 tab 10/04/19 04/19/20 Unknown Rx alprazolam 0.25 mg tablet 0.5 mg PO BID PRN tab 02/25/20 04/19/20 Unknown History furosemide 20 mg tablet 20 mg PO DAILY tab 02/25/20 04/19/20 Unknown History morphine 200 mg tablet,extended 400 mg PO BID PRN tab 02/25/20 04/19/20 Unknown History release potassium chloride 10 mEq 10 meq PO BID tab 02/25/20 04/19/20 Unknown History tablet,extended release(part/cryst) methylprednisolone 4 mg tablets in See Rx Instructions PO PER PKG DIR 04/11/20 04/19/20 Unknown Rx a dose pack #21 each metoprolol tartrate 25 mg PO DAILY 04/19/20 04/19/20 Unknown History prednisone 20 mg PO DAILY 04/19/20 04/19/20 Unknown History Allergies Allergy/AdvReac Type Severity Reaction Status Date / Time butorphanol Allergy Unknown Verified 04/11/20 12:53 methadone Allergy Unknown Verified 04/11/20 12:53 nalbuphine Allergy Unknown Verified 04/11/20 12:53 pentazocine Allergy Unknown Verified 04/11/20 12:53 Current Medications Current Medications Generic Name Dose Route Start Last Admin Trade Name Freq PRN Reason Stop Dose Admin Alprazolam 0.5 mg 04/19/20 01:20 04/19/20 02:31 Xanax PO 0.5 mg BID PRN Administration anxiety Aspirin 81 mg 04/19/20 09:00 04/19/20 09:04 Aspirin Ec PO 81 mg DAILY HECTOR Administration Digoxin 125 mcg 04/19/20 09:00 04/19/20 09:03 Lanoxin PO 125 mcg DAILY HECTOR Administration Docusate Sodium 100 mg 04/19/20 09:00 04/19/20 09:03 Colace PO 100 mg BID HECTOR Administration Furosemide 40 mg 04/19/20 09:00 04/19/20 09:04 Lasix PO 40 mg DAILY HECTOR Administration Hydromorphone HCl 4 mg 04/19/20 01:20 04/19/20 09:04 Dilaudid Tab PO 4 mg Q4H PRN Administration PAIN Magnesium Oxide 400 mg 04/19/20 09:00 04/19/20 09:04 Magox PO 400 mg BID HECTOR Administration Metoprolol Tartrate 12.5 mg 04/19/20 09:00 04/19/20 09:04 Lopressor PO 12.5 mg BID HECTOR Administration Nitroglycerin 0.5 inch 04/19/20 01:30 04/19/20 09:05 Nitro-Bid TOPICAL 0.5 inch Q6H HECTOR Administration Nitroglycerin 0.4 mg 04/19/20 02:26 04/19/20 02:58 Nitrostat SUBLINGUAL 0.4 mg Q5M PRN Administration CHEST PAIN Potassium Chloride 10 meq 04/19/20 09:00 04/19/20 09:04 Klor-Con 10 PO 10 meq BID HECTOR Administration Tamsulosin HCl 0.4 mg 04/19/20 09:00 09/05/20 09:03 Flomax PO 0.4 mg DAILY HECTOR Administration Trazodone HCl 50 mg 04/19/20 01:20 04/19/20 01:44 Desyrel PO 50 mg BEDTIME HECTOR Administration PFSH Acute PFSH: Medical History Anemia Anxiety Arthritis Atrial fibrillation This is not confirmed in his old records but patient believes this is the reason he is on digoxin when asked. Atypical chest pain BPH (benign prostatic hyperplasia) Chest pain Chronic back pain Congestive heart failure Diastolic heart failure GI bleed History of amputation of left great toe Hypertension Transient ischemic attack Surgical History Aortic valve replaced Mechanical. On anticoagulation. History of hernia repair History of knee surgery Hx of appendectomy Previous back surgery Family History Other Congenital heart disease Social History Smoking and tobacco status: former smoker Alcohol intake: current Alcohol intake frequency: 0-2 Drinks per Day Alcohol type: beer Vitals/I&O/Wt Last Vital Signs Temp 97.6 F 04/19/20 08:00 Pulse 71 04/19/20 09:03 Resp 17 04/19/20 09:04 BP 115/61 04/19/20 08:00 Pulse Ox 95 04/19/20 09:04 04/18/20 04/19/20 04/19/20 22:59 06:59 14:59 Intake Total 100 / 100 Balance 100 / 100 Weight last 48 hrs Weight 206 lb 4.8 oz Weight 206 lb Physical Exam Const: COMMON NORMALS: no acute distress, patient oriented x3 and alert GENERAL APPEARANCE: cooperative, comfortable, well kempt and well hydrated HENMT: COMMON NORMALS: hearing grossly normal bilaterally and external ears normal EXTERNAL EAR: Yes external ears normal Eye: COMMON NORMALS: EOMs intact bilaterally and no scleral icterus GENERAL EYE: appearance normal, both eyes and all related structures Neck/C-Spine: COMMON NORMALS: supple and no JVD GENERAL: Yes normal visual inspection and Yes trachea midline CAROTIDS: Yes normal carotid upstroke Chest: COMMONS NORMALS: normal inspection of the chest and normal palpation of entire chest wall Resp: COMMON NORMALS: clear to auscultation bilaterally AUSCULTATION: clear to auscultation bilaterally, no crackles, no rales, no rhonchi and no wheezes Cardio: COMMON NORMALS: no JVD, regular rate, regular rhythm, S1 normal heart sound present, S2 normal heart sound present and Peripheral pulses 2+ throughout PALPATION: normal PMI RATE: regular rate RHYTHM: regular rhythm HEART SOUNDS: S1 normal heart sound present, S2 normal heart sound present, no gallops and no murmurs BRUITS: no carotid bruits PERIPHERAL PULSES: Peripheral pulses 2+ throughout, radial pulses present, posterior tibial pulses present and dorsalis pedis present Extremity: GENERAL: Yes edema and No pallor Neuro: COMMON NORMALS: patient oriented x3, CN's II-XII intact bilaterally and no focal motor deficits SENSORIUM/ORIENTATION: Yes alert Psych: COMMON NORMALS: Normal thought process present and speech normal APPEARANCE: Yes well kempt SPEECH: Yes normal speech MOOD & AFFECT: Yes euthymic mood THOUGHT PROCESS: Normal thought process present THOUGHT CONTENT: Yes Normal thought content present Data Labs: Other Labs: Hemoglobin A1c 6.1, baseline troponin T 18 and troponin T 120 minutes of 49 with troponin T this morning up to 236. NT proBNP 319. Lipid panel with triglyceride 106, total cholesterol 182, LDL 95 and HDL 66. TSH 1.38. Digoxin level 0.8. Imaging^: Other Imaging: Radiologist's impression: Chest x-ray on 18 April 2020 showed no consolidation pleural effusion and was negative for infiltrates. EKG showed sinus rhythm with first-degree AV block and left bundle branch block. Echocardiogram 02 October 2018 CONCLUSIONS The ventricles poorly seen. It is probably normal in size and function. There is paradoxical septal motion most likely consistent with a postoperative state. Grade 2 diastolic dysfunction. Wall motion disturbances cannot be determined. Normal right ventricular size and systolic function. Mild pulmonary hypertension, RVSP 35.7 mmHg. Mildly increased left atrial size. Poor quality study. Probably no change from study done 6 months ago. Lexiscan sestamibi myocardial perfusion imaging 08 March 2018 PERFUSION FINDINGS Small area for severely decreased tracer uptake in the basal, mid and apical inferior wall region, with no significant reversibility. A small area decreased tracer uptake in the apical anterior wall region, with no significant reversibility. FUNCTIONAL RESULTS (calculated via Gated SPECT) Stress Image LV EF (%): 83 Stress EDV (mL):70 TID: 0.75 Stress ESV (mL):12 FUNCTIONAL FINDINGS: LV wall motion analysis revealed no gross wall motion abnormalities IMPRESSIONS #1. Myocardial perfusion imaging revealing areas of persistent decreased tracer uptake in the inferior wall and apical anterior wall regions, suggestive of my call scarring versus attenuation artifacts. #2. Normal LV ejection fraction of 83%. #3. LV wall motion analysis revealed no gross wall motion abnormalities. #4. Normal LV volume. No significant coronary ischemia, based on the above findings. Coronary angiogram 01 July 2015 Conclusions Procedure Summary Minimal intimal irregularities in the coronary arteries with no significant stenotic lesions Heavy calcification in the aortic valve was noted Normal right-sided pressures Normal pulmonary capillary wedge pressure Recommendations Consider aortic valve surgery A&P Assessment and plan (1) NSTEMI (non-ST elevated myocardial infarction): EKG with LBBB. CP typical with atypical features. No RWMA on echo (study TDS) with normal LV function. -troponin T 236. Patient had cp 3 episodes yesterday. Patient complains of tachycardia however no evidence of atrial fibrillation. -Plan for LHC tomorrow based on INR. -hold warfarin; load with plavix this evening, ASA and start on heparin gtt. -continue NTG Status: Acute (2) Aortic valve replaced: Mechanical aortic valve on warfarin Status: Chronic (3) Hypertension: Status: Chronic Qualifiers: Hypertension type: essential hypertension Qualified Code(s): I10 - Essential (primary) hypertension (4) Congestive heart failure: Status: Chronic Qualifiers: Heart failure type: diastolic Heart failure chronicity: chronic Qualified Code(s): I50.32 - Chronic diastolic (congestive) heart failure (5) BPH (benign prostatic hyperplasia): Status: Chronic Qualifiers: Lower urinary tract symptom presence: unspecified whether lower urinary tract symptoms present Qualified Code(s): N40.0 - Benign prostatic hyperplasia without lower urinary tract symptoms Additional A&P Information Elevated HbA1C -6.1 Mild leucocytosis h/o post pericardiotomy syndrome H/o atrial fibrillation Consult Attestations Medical Necessity Statement: Needs hospital stay for NSTEMI Coding Level of Care Code Acute Environmental Officer for [facility] Fwd Diagnoses NSTEMI (non-ST elevated myocardial infarction) I21.4 Aortic valve replaced Z95.2 Hypertension I10 Hypertension type: essential hypertension Congestive heart failure I50.32 Heart failure type: diastolic Heart failure chronicity: chronic BPH (benign prostatic hyperplasia) N40.0 Lower urinary tract symptom presence: unspecified whether lower urinary tract symptoms present
--- NOTE | 2020-04-19 11:18 | PC.CHAP ---
Pastoral Care Encounter/Spiritual Assessment Type of Contact [] Declined firer retort visit [] Patient/Family/Request visit [] Outpatient visit [] Follow-up visit [] Physician referral [] Code/Alert [XX] Routine visit [] Staff referral [] Actively dying [] Patient sleeping [] Family support [] [] Out of room [] Palliative care [] [] Receiving care in room [] Pre-surgical visit [] Trauma [] Long length of stay [] ICU visit [] Other: Relational/Emotional Strength [XX] Patient feels connected with others/family/visitors/staff [] Distress [] Loneliness/isolation [] Abandonment Spirituality of Patient [XX] Person of Verenice [] Attends Temple of their Verenice [XX] Believes in Prayer [XX] Reads Bible or Baptist materials [] There are Spiritual issues to be addressed Internal Salesperson Interventions [XX] Prayer [XX] Active listening [XX] Non-anxious presence [] Spiritual/emotional support [] Crisis/trauma care [] Spiritual counseling [] Bereavement support [] Provided bereavement packet [XX] Provided Bible/devotional materials [] Provided toy/stuffed animal, coloring book to patient or family member [] Provided Communion [] Anointing/[place] [] Salvation [] Completed spiritual assessment [] Other: Impact on Illness or Injury [] Angry [] Fearful [] Anxious [] Often cries [] Exhaustion [] Unable to work [] Unable to attend religious [] Unable to walk/stand [] Unable to read [] Unable to drive [] Unable to eat/drink [] Unable to sleep [] Unable to be with family [] Patient intubated [] Other: Summary: Pt in hospital for chest pain. He has a history of heart disease and high blood pressure; status-post heart valve replacement. On home health. We visited about his verenice, his family, and the major losses in his life (his father at age 24y from drowning; his mother at 41y from ovarian cancer; his step-father is ; one of his sons in 1999 in a motor vehicle accident). He has one living son with whom he is close, a step-daughter with whom he is not in touch very often, and grandchildren. Pt has had at least two divine encounters in his life and is content / at peace with God and where he is at spiritually. However, he is concerned about his grandchildren's spiritual lives. We prayed, and a Daily Bread was provided. Time spent with patient: 30 minutes
[2020-04-19] MEDS: aspirin 325 mg EC Tablet PO (14:16)
[2020-04-19] MEDS: heparin drip 25,000 UNIT/500 ML PREMIX 26.2 UNIT IV (14:34)
[2020-04-19] MEDS: clopidogrel 300 mg Tablet PO (17:09)
[2020-04-19] MEDS: morphine ER (12 HR) 100 mg Tablet 200 MG PO (19:40)
[2020-04-19] MEDS: atorvastatin 40 mg Tablet PO (20:18)
[2020-04-19 21:43] LABS: Partial Thromboplastin Time > 250.0 SECONDS (23.9-36.7)
--- NOTE | 2020-04-19 22:00 | PC.NURSE ---
PTT CAME BACK GREATER THAN 250. DR TOLBERT WAS CALLED. ORDERS ARE TO STOP DRIP FOR 1 HOUR THEN RESUME DECREASED BY TO. HEPARIN WILL BE RESTARTED BY TRACTION POWER ENGINEER NURSE.
[2020-04-20] VITALS (60 sets, daily range): BP systolic 92–143; BP diastolic 59–83; PULSE 57–108; RESP 0–26; TEMP 36.6–37.1; O2SAT 92–96
[2020-04-20] MEDS: nitroglycerin 1 gm/inch oint Pkt 0.5 INCH TOPICAL (02:16)
[2020-04-20 05:46] LABS: Basophils # 0.1 10^3/uL (0.0-0.1); Basophils % 0.9 %; Eosinophils # 0.4 10^3/uL (0.0-0.8); Eosinophils % 3.9 %; Hematocrit 38.9 % (42.0-52.0); Lymphocytes # 1.8 10^3/uL (0.8-4.8); Lymphocytes % 18.9 %; Mean Corpuscular HGB Conc 30.8 g/dL (30.0-36.0); Mean Corpuscular Hemoglobin 27.1 pg (28.0-34.0); Mean Platelet Volume 9.7 fL (7.4-10.4); Monocytes # 0.9 10^3/uL (0.2-0.9); Monocytes % 9.4 %; Neutrophils # 6.12 10^3/uL (1.8-7.7); Neutrophils % 65.8 %; Nucleated Red Blood Cells % 0 %; Platelet Count 257 10^3/cmm (130-400); Red Blood Count 4.42 10^6/uL (4.1-5.3); Red Cell Distribution Width 13.4 % (12.1-15.1); White Blood Count 9.3 10^3/uL (4.0-10.0)
--- NOTE | 2020-04-20 05:48 | PC.NURSE ---
PT HAS BEEN PREPPED AND PULSES HAVE BEEN DOPPLED BY FRUIT OR NUT FARMWORKER. PT HAS SIGNED INFORMED CONSENT. PT ON A HEPARIN GTT RUNNING AT 16ML/HR AT THIS TIME. VS WNL. WILL CONTINUE TO MONITOR.
[2020-04-20 06:40] LABS: Blood Urea Nitrogen 19 mg/dL (8-23); Calcium 8.4 mg/dL (8.5-10.5); Carbon Dioxide 30 mmol/L (22-29); Chloride 95 mmol/L (98-107); Glomerular Filtration Rate 95.6 mL/min (90-130); Glucose 116 mg/dL (65-115); Osmolality Calculated 273 mOsm/kg (285-295); Sodium 133 mmol/L (136-145)
[2020-04-20 06:47] LABS: INR 1.95 (0.8-1.2)
[2020-04-20 06:54] LABS: Partial Thromboplastin Time 153.2 SECONDS (23.9-36.7)
--- NOTE | 2020-04-20 07:01 | PC.NURSE ---
Notified Dr. Allred on PTT result Talked to Dr Allred on Heparin drip, discuss to doc regarding protocol and possible cath today base on INR. Received tel order back to decrease dose rate at 8 mls/hr. Dose rate change as ordered.
[2020-04-20 07:47] LABS: Anion Gap 12.1 (5-19); Potassium 4.1 mmol/L (3.5-5.1)
--- NOTE | 2020-04-20 08:00 | PC.NURSE ---
Physician Notification Talked to Dr. Quiñones and Dr. Rios, their plan is to do the LHC at 11. Received tel order read back from Dr. Rios to hold Heparin drip at 10 am, 1 hr prior to LHC procedure.
--- NOTE | 2020-04-20 08:30 | PC.NURSE ---
Stopped Heparin Drip Pt going to golf course laborer now. Heparin drip stopped. Informed golf course laborer nurses.
[2020-04-20] MEDS: sodium chloride 0.9% 1,000 ML 50 ML IV (08:38)
[2020-04-20] MEDS: diphenhydrAMINE 50 mg Capsule PO ×2 (08:42)
--- NOTE | 2020-04-20 08:45 | PC.NURSE ---
off Unit to asphalt plant laborer
--- NOTE | 2020-04-20 08:52 | P.HPUD_ITS ---
Surgery/Procedure H&P Update DATE OF PROCEDURE: April 20, 2020 DATE H&P PERFORMED: 04/19/20 H&P UPDATE INFORMATION: I have reviewed H&P completed within last 30 days and I have examined patient prior to procedure PREOP DIAGNOSIS: NSTEMI PRIMARY INDICATION FOR PROCEDURE: NSTEMI PLANNED PROCEDURE: Operation Date: 04/20/20 09:00 Proposed Procedures p Cardiac Catheterization(Left) - Tracee Quiñones MD PATIENT REASSESSED PRIOR TO SEDATION, WITH NO CHANGE NOTED: Yes PHYSICAL EXAM: alert, oriented x 3, clear to auscultation bilaterally and regular rate & rhythm AIRWAY EVAL/ANESTHESIA PLAN: normal airway, ASA II, Risks, benefits & alternati ves of sedation and/or procedure discussed and Patient agrees to continue as planned
--- NOTE | 2020-04-20 09:09 | PM.PN ---
Subjective Subjective: Interval history: Hemodynamically stable, had 1150 mL urine output overnight, cath today, stable renal function, INR of 1.95. Seen following cath, resting comfortably in bed, no complaints. Discussed angiogram findings with Dr. Quiñones, no significant findings on angiogram. Okay for discharge this afternoon. Will need to be bridged with Lovenox and have Coumadin resumed. Patient inquired about being allowed to have beer tonight if he ends up staying in the hospital. Medications: Reviewed: Yes Medication Review Details: Active Medications Generic Name Dose Route Start Last Admin Trade Name Freq PRN Reason Stop Dose Admin Acetaminophen 650 mg 04/19/20 13:00 Tylenol PO Q6H PRN Mild/Mod Pain Or Temp >/= 101 Albuterol Sulfate 2 puff 04/19/20 01:20 Ventolin INHALATION Q6H PRN COUGH Alprazolam 0.5 mg 04/19/20 01:20 04/19/20 14:16 Xanax PO 0.5 mg BID PRN Administration anxiety Aspirin 325 mg 04/19/20 12:40 04/19/20 14:16 Aspirin Ec PO 325 mg DAILY HECTOR Administration Atorvastatin Calci um 40 mg 04/19/20 21:00 04/19/20 20:18 Lipitor PO 40 mg BEDTIME HECTOR Administration Clopidogrel Bisulf ate 75 mg 04/20/20 09:00 Plavix PO DAILY HECTOR Digoxin 125 mcg 04/19/20 09:00 04/19/20 09:03 Lanoxin PO 125 mcg DAILY HECTOR Administration Docusate Sodium 100 mg 04/19/20 09:00 04/19/20 17:09 Colace PO 100 mg BID HECTOR Administration Furosemide 40 mg 04/19/20 09:00 04/19/20 09:04 Lasix PO 40 mg DAILY HECTOR Administration Heparin Sodium (Be ef Lung) 0 unit 04/19/20 12:30 Heparin IV PRN PRN Heparin weight-ba se protocol Protocol Hydromorphone HCl 4 mg 04/19/20 01:20 04/20/20 08:37 Dilaudid Tab PO 4 mg Q4H PRN Administration PAIN Heparin Sodium/Sod ium Chloride 25,000 unit in 50 0 mls @ 0 mls/hr 04/19/20 12:30 04/20/20 08:34 Heparin Drip IV 0 unit/kg/hr .Q0M HECTOR 0 mls/hr Titration Protocol Per Protocol Sodium Chloride 1,000 mls @ 50 ml s/hr 04/20/20 05:23 04/20/20 08:38 Sodium Chloride 0.9% IV 04/21/20 01:22 50 mls/hr .Q20H ONE Administration Magnesium Oxide 400 mg 04/19/20 09:00 04/19/20 17:09 Magox PO 400 mg BID HECTOR Administration Metoprolol Tartrat e 12.5 mg 04/19/20 09:00 04/19/20 17:09 Lopressor PO 12.5 mg BID HECTOR Administration Morphine Sulfate 200 mg 04/19/20 13:00 04/19/20 19:40 Ms Contin PO 200 mg Q12H PRN Administration pain Nitroglycerin 0.5 inch 04/19/20 01:30 04/20/20 08:43 Nitro-Bid TOPICAL Not Given Q6H HECTOR Nitroglycerin 0.4 mg 04/19/20 02:26 04/19/20 02:58 Nitrostat SUBLINGUAL 0.4 mg Q5M PRN Administration CHEST PAIN Ondansetron HCl 4 mg 04/19/20 01:20 Zofran IVP Q6H PRN vomiting, or N/V if npo Potassium Chloride 10 meq 04/19/20 09:00 04/19/20 17:09 Klor-Con 10 PO 10 meq BID HECTOR Administration Tamsulosin HCl 0.4 mg 04/19/20 09:00 04/19/20 09:03 Flomax PO 0.4 mg DAILY HECTOR Administration Trazodone HCl 50 mg 04/19/20 01:20 04/19/20 20:19 Desyrel PO 50 mg BEDTIME HECTOR Administration butorphanol Allergy (Verified 04/11/20 12:53) Unknown methadone Allergy (Verified 04/11/20 12:53) Unknown nalbuphine Allergy (Verified 04/11/20 12:53) Unknown pentazocine Allergy (Verified 04/11/20 12:53) Unknown Vitals/I&O/Wt Last Vital Signs Temp 97.8 F 04/20/20 07:24 Pulse 75 04/20/20 07:24 Resp 12 04/20/20 08:37 BP 116/59 04/20/20 07:24 Pulse Ox 96 04/20/20 07:24 04/19/20 04/20/20 04/20/20 22:59 06:59 14:59 Intake Total 314.753 / 314.753 0 / 314.753 140.933 / 140.933 Output Total 1000 / 1950 650 / 2600 Balance -685.247 / -1635.247 -650 / -2285.247 140.933 / 140.933 Weight last 48 hrs Weight 94.982 kg Weight 93.576 kg Weight 93.44 kg Physical Exam Const: COMMON NORMALS: no acute distress, patient oriented x3 and alert GENERAL APPEARANCE: cooperative and comfortable NUTRITIONAL APPEARANCE: obese ORIENTATION/CONSCIOUSNESS: Yes awake HENMT: COMMON NORMALS: normocephalic, atraumatic, hearing grossly normal bilaterally and moist oral mucous membranes HEAD & SCALP: normocephalic and atraumatic Eye: COMMON NORMALS: Equal, round and reactive pupils present, EOMs intact bilaterally and conjunctivae normal CONJUNCTIVA: Yes conjunctivae normal PUPIL: Yes Equal, round and reactive pupils present Neck/C-Spine: COMMON NORMALS: full ROM GENERAL: Yes normal visual inspection and Yes trachea midline Resp: COMMON NORMALS: normal respiratory effort, No retractions, No use of accessory muscles and clear to auscultation bilaterally EFFORT & INSPECTION: Yes able to speak in complete sentences, Yes symmetric chest movement and No tachypneic AUSCULTATION: clear to auscultation bilaterally Cardio: COMMON NORMALS: regular rate, regular rhythm, S1 normal heart sound present, S2 normal heart sound present and No murmurs present (Cardio) RATE: regular rate RHYTHM: regular rhythm HEART SOUNDS: S1 normal heart sound present and S2 normal heart sound present GI: COMMON NORMALS: Normal to inspection, nondistended, normoactive bowel sounds present, Soft to palpation and non-tender INSPECTION: Yes central obesity PALPATION: Yes Soft to palpation Extremity: COMMON NORMALS: normal to inspection, full ROM, no clubbing, cyanosis or edema and no pedal edema NARRATIVE EXTREMITY EXAM: -TR band on R wrist Neuro: COMMON NORMALS: patient oriented x3, moves all extremities, no focal motor deficits and no sensory deficits noted SENSORIUM/ORIENTATION: Yes alert Psych: COMMON NORMALS: mental status grossly normal, Normal thought process present, cooperative, normal affect and speech normal SPEECH: Yes normal speech THOUGHT PROCESS: Normal thought process present Skin: COMMON NORMALS: no rashes or lesions noted, no jaundice, no petechiae and no mottling GENERAL SKIN EXAM: no rashes or lesions noted Data : 04/20/20 05:09 04/20/20 05:09 A&P Assessment and plan (1) Elevated troponin: -noted troponin elevation, significant delta; no noted acute ischemic changes on ECG -has hx of atypical chest pain, follows up with Dr. Richard PEREZ -VSS, continue to monitor -Cardiology evaluation appreciated -on BB, ASA, statin -previously wanted to hold off on repeat myocardial perfusion imaging; did have a nuclear stress test done on 02/2018 showing areas of persistently decreased uptake in the inferior wall and apical anterior wall regions suggestive of scarring, no significant coronary ischemia -noted TSH, lipid panel, A1c -Echo: EF=55-60%, no RWMA, mechanical aortic valve well-seated, trace MR, trace TR, trace MN. Previous one done in 09/2018 with G2DD, mild pulmonary HTN; limited study -cath today, unremarkable Status: Acute (2) Hypertension: -VSS; continue to monitor -continue oral antihypertensives Status: Chronic Qualifiers: Hypertension type: essential hypertension Qualified Code(s): I10 - Essential (primary) hypertension (3) Aortic valve replaced: -hx of AV replacement (mechanical), done in 2014 -on AC with coumadin, held here and switched to heparin drip -INR-1.95 Status: Chronic (4) BPH (benign prostatic hyperplasia): -on Flomax Status: Chronic Qualifiers: Lower urinary tract symptom presence: unspecified whether lower urinary tract symptoms present Qualified Code(s): N40.0 - Benign prostatic hyperplasia without lower urinary tract symptoms (5) Congestive heart failure: -no acute exacerbation -Echo as noted above -on oral lasix Status: Chronic Qualifiers: Heart failure chronicity: chronic Heart failure type: diastolic Qualified Code(s): I50.32 - Chronic diastolic (congestive) heart failure Additional A&P Information -mild hypokalemia; resolved, on supplementation -pre-DM, A1c-6.1 -Obesity: BMI-32 kg/m2 -Chronic pain, on chronic narcotics -hx of TIA -Anxiety; on anxiolytics -Chronic normocytic anemia; baseline Hg is around 11 -CKD stage 2, baseline Cr around 0.8-0.9 -NPO after midnight for cath -DVT ppx not needed as on AC -Dispo: home -Code status: FULL code Attestations Medical Necessity Statement*: Discharge today. Time Spent in Patient Care: 16 - 35 minutes (>than 50% of time spent in counselling and/or direct pt care on unit). Coding Level of Care Code Acute Traffic Checker for g Fwd Exam Comprehensive Diagnoses Elevated troponin R79.89 Hypertension I10 Hypertension type: essential hypertension Aortic valve replaced Z95.2 BPH (benign prostatic hyperplasia) N40.0 Lower urinary tract symptom presence: unspecified whether lower urinary tract symptoms present Congestive heart failure I50.32 Heart failure chronicity: chronic Heart failure type: diastolic
[2020-04-20] MEDS: FUROsemide 40 mg Tablet PO (10:07)
[2020-04-20] MEDS: docusate sodium 100 mg Capsule PO ×2 (10:15→16:55)
[2020-04-20] MEDS: aspirin 325 mg EC Tablet PO (10:15)
[2020-04-20] MEDS: clopidogrel 75 mg Tablet PO (10:15)
[2020-04-20] MEDS: digoxin 125 mcg Tablet PO (10:15)
[2020-04-20] MEDS: metoprolol tartrate 25 mg Tablet 12.5 MG PO ×2 (10:15→16:55)
[2020-04-20] MEDS: tamsulosin 0.4 mg Capsule PO (10:16)
[2020-04-20] MEDS: potassium chloride ER 10 mEq Tablet PO ×2 (10:16→16:55)
[2020-04-20] MEDS: magnesium oxide 400 mg tablet PO ×2 (10:16→16:54)
[2020-04-20] MEDS: morphine ER (12 HR) 100 mg Tablet 200 MG PO (10:21)
[2020-04-20] MEDS: multivitamin therapeutic Tablet 1 TAB PO (13:01)
[2020-04-20] MEDS: folic acid 1 mg Tablet PO (13:02)
[2020-04-20] MEDS: predniSONE 20 mg Tablet PO (13:03)
[2020-04-20] MEDS: magnesium hydroxide 30 mL UDC PO (13:04)
[2020-04-20] MEDS: thiamine 100 mg Tablet PO (13:04)
--- NOTE | 2020-04-20 14:00 | PC.NURSE ---
TR Band removal No hematoma, swelling or bleeding. radial pulse palpable. 2x2 dressing applied and covered w/ transparent gauze.
[2020-04-20] MEDS: ALPRAZolam 0.5 mg Tablet PO (14:09)
--- NOTE | 2020-04-20 14:39 | P.PN_ITS ---
Subjective Subjective: Interval history: Patient underwent coronary angiogram today and was found to have mild nonobstructive coronary artery disease. He has been chest pain-free. No events on telemetry. Medications: Reviewed: Yes Medication Review Details: Current Medications Acetaminophen (Tylenol) 650 mg PO Q6H PRN PRN Reason: Mild/Mod Pain Or Temp >/= 101 Al Hydrox/Mg Hydrox/Simethicone (Maalox) 30 ml PO Q15M PRN PRN Reason: INDIGESTION Albuterol Sulfate (Ventolin) 2 puff INHALATION Q6H PRN PRN Reason: COUGH Alprazolam (Xanax) 0.5 mg PO BID PRN PRN Reason: anxiety Last Admin: 04/20/20 14:09 Dose: 0.5 mg Documented by: Aspirin (Aspirin Ec) 325 mg PO DAILY [facility] Last Admin: 04/20/20 10:15 Dose: 325 mg Documented by: Atorvastatin Calcium (Lipitor) 40 mg PO BEDTIME [facility] Last Admin: 04/19/20 20:18 Dose: 40 mg Documented by: Atropine Sulfate (Atropine) 0.5 mg IVP PRN PRN PRN Reason: Symptomatic bradycardia Clopidogrel Bisulfate (Plavix) 75 mg PO DAILY [facility] Last Admin: 04/20/20 10:15 Dose: 75 mg Documented by: Digoxin (Lanoxin) 125 mcg PO DAILY [facility] Last Admin: 04/20/20 10:15 Dose: 125 mcg Documented by: Docusate Sodium (Colace) 100 mg PO BID [facility] Last Admin: 04/20/20 10:15 Dose: 100 mg Documented by: Folic Acid (Folic Acid) 1 mg PO DAILY [facility] Last Admin: 04/20/20 13:02 Dose: 1 mg Documented by: Furosemide (Lasix) 40 mg PO DAILY [facility] Last Admin: 04/20/20 10:19 Dose: Not Given Documented by: Heparin Sodium (Beef Lung) (Heparin) 0 unit IV PRN PRN; Protocol PRN Reason: Heparin weight-base protocol Hydromorphone HCl (Dilaudid Tab) 4 mg PO Q4H PRN PRN Reason: PAIN Last Admin: 04/20/20 08:37 Dose: 4 mg Documented by: Heparin Sodium/Sodium Chloride (Heparin Drip) 25,000 unit in 500 mls @ 0 mls/hr IV .Q0M [facility]; Protocol Last Titration: 04/20/20 08:34 Dose: 0 unit/kg/hr, 0 mls/hr Documented by: Sodium Chloride (Sodium Chloride 0.9%) 1,000 mls @ 50 mls/hr IV .Q20H ONE Stop: 04/21/20 01:22 Last Admin: 04/20/20 08:38 Dose: 50 mls/hr Documented by: Lorazepam (Ativan) 2 mg IM PROTOCOL PRN; Protocol PRN Reason: [place]OWD Lorazepam (Ativan) 2 mg PO PROTOCOL PRN; Protocol PRN Reason: WITHDRAWAL Magnesium Hydroxide (Milk Of Magnesia) 30 ml PO DAILY PRN PRN Reason: CONSTIPATION Last Admin: 04/20/20 13:04 Dose: 30 ml Documented by: Magnesium Oxide (Magox) 400 mg PO BID [facility] Last Admin: 04/20/20 10:16 Dose: 400 mg Documented by: Metoprolol Tartrate (Lopressor) 12.5 mg PO BID [facility] Last Admin: 04/20/20 10:15 Dose: 12.5 mg Documented by: Morphine Sulfate (Ms Contin) 200 mg PO Q12H PRN PRN Reason: pain Last Admin: 04/20/20 10:21 Dose: 200 mg Documented by: Multivitamins Therapeutic (Multivitamin Tab) 1 tab PO DAILY [facility] Last Admin: 04/20/20 13:01 Dose: 1 tab Documented by: Naloxone HCl (Narcan) 0.1 mg IVP Q2M PRN PRN Reason: RESPIRATORY RATE < 8/MIN Nitroglycerin (Nitro-Bid) 0.5 inch TOPICAL Q6H [facility] Last Admin: 04/20/20 08:43 Dose: Not Given Documented by: Nitroglycerin (Nitrostat) 0.4 mg SUBLINGUAL Q5M PRN PRN Reason: CHEST PAIN Last Admin: 04/19/20 02:58 Dose: 0.4 mg Documented by: Ondansetron HCl (Zofran) 4 mg IVP Q6H PRN PRN Reason: vomiting, or N/V if npo Potassium Chloride (Klor-Con 10) 10 meq PO BID [facility] Last Admin: 04/20/20 10:16 Dose: 10 meq Documented by: Prednisone (Prednisone) 20 mg PO DAILY [facility] Last Admin: 04/20/20 13:03 Dose: 20 mg Documented by: Tamsulosin HCl (Flomax) 0.4 mg PO DAILY [facility] Last Admin: 04/20/20 10:16 Dose: 0.4 mg Documented by: Thiamine Mononitrate (Vitamin B-1) 100 mg PO DAILY [facility] Last Admin: 04/20/20 13:04 Dose: 100 mg Documented by: Trazodone HCl (Desyrel) 50 mg PO BEDTIME [facility] Last Admin: 04/19/20 20:19 Dose: 50 mg Documented by: Vitals/I&O/Wt Last Vital Signs Temp 98.4 F 04/20/20 11:11 Pulse 72 04/20/20 12:45 Resp 15 04/20/20 12:45 BP 111/59 04/20/20 12:45 Pulse Ox 94 04/20/20 12:45 04/19/20 04/20/20 04/20/20 22:59 06:59 14:59 Intake Total 314.753 / 314.753 0 / 314.753 480.933 / 480.933 Output Total 1000 / 1950 650 / 2600 1130 / 1130 Balance -685.247 / -1635.247 -650 / -2285.247 -649.067 / -649.067 Weight last 48 hrs Weight 209 lb 6.4 oz Weight 206 lb 4.8 oz Weight 206 lb Physical Exam Const: COMMON NORMALS: no acute distress, patient oriented x3 and alert GENERAL APPEARANCE: cooperative, comfortable, well kempt and well hydrated HENMT: COMMON NORMALS: hearing grossly normal bilaterally and external ears normal EXTERNAL EAR: Yes external ears normal Eye: COMMON NORMALS: EOMs intact bilaterally and no scleral icterus GENERAL EYE: appearance normal, both eyes and all related structures Neck/C-Spine: COMMON NORMALS: supple and no JVD GENERAL: Yes normal visual inspection and Yes trachea midline CAROTIDS: Yes normal carotid upstroke Chest: COMMONS NORMALS: normal inspection of the chest and normal palpation of entire chest wall Resp: COMMON NORMALS: clear to auscultation bilaterally AUSCULTATION: clear to auscultation bilaterally, no crackles, no rales, no rhonchi and no wheezes Cardio: COMMON NORMALS: no JVD, regular rate, regular rhythm, S1 normal heart sound present, S2 normal heart sound present and Peripheral pulses 2+ throughout PALPATION: normal PMI RATE: regular rate RHYTHM: regular rhythm HEART SOUNDS: S1 normal heart sound present, S2 normal heart sound present, no gallops and no murmurs BRUITS: no carotid bruits PERIPHERAL PULSES: Perip heral pulses 2+ throughout, radial pulses present, posterior tibial pulses present and dorsalis pedis present Extremity: GENERAL: Yes edema (trace) and No pallor RIGHT UPPER EXTREMITY: Yes wrist (2+ radial, no significant bruising or hematoma) Neuro: COMMON NORMALS: patient oriented x3, CN's II-XII intact bilaterally and no focal motor deficits SENSORIUM/ORIENTATION: Yes alert Psych: COMMON NORMALS: Normal thought process present and speech normal APPEARANCE: Yes well kempt SPEECH: Yes normal speech MOOD & AFFECT: Yes euthymic mood THOUGHT PROCESS: Normal thought process present THOUGHT CONTENT: Yes Normal thought content present Data : 04/20/20 05:09 04/20/20 05:09 A&P Assessment and plan (1) NSTEMI (non-ST elevated myocardial infarction): EKG with LBBB. CP typical with atypical features. No RWMA on echo (study TDS) with normal LV function. -troponin T 236. Patient had cp 3 episodes yesterday. Patient complains of tachycardia however no evidence of atrial fibrillation. -Plan for C tomorrow based on INR. -hold warfarin; load with plavix this evening, ASA and start on heparin gtt. -continue NTG He underwent coronary angiogram that did not show any obstructive CAD. - [place]; possible etiologies being coronary vasospasm / microvascular angina. -He does complain of intermittent episodes of tachycardia with heart rate reaching as high as 160s. He is pretty anxious at baseline but cannot be certain if these episodes were not atrial fibrillation with RVR. -Advised to use low-dose metoprolol every day twice a day. I am not sure if he is going to tolerate long-acting nitrate. I will try low-dose nitrate. -Was advised to check blood pressure and heart rate -Follow-up with Ms. Davis next week with BMP and INR check and with Dr. Ramos in 1 month Status: Acute (2) Aortic valve replaced: Mechanical aortic valve on warfarin. -Restart warfarin today and overlap with Lovenox for next 3 to 4 days and recheck INR next week. Status: Chronic (3) Hypertension: Status: Chronic Qualifiers: Hypertension type: essential hypertension Qualified Code(s): I10 - Essential (primary) hypertension (4) Congestive heart failure: Status: Chronic Qualifiers: Heart failure type: diastolic Heart failure chronicity: chronic Qualified Code(s): I50.32 - Chronic diastolic (congestive) heart failure (5) BPH (benign prostatic hyperplasia): Status: Chronic Qualifiers: Lower urinary tract symptom presence: unspecified whether lower urinary tract symptoms present Qualified Code(s): N40.0 - Benign prostatic hyperplasia without lower urinary tract symptoms Additional A&P Information Elevated HbA1C -6.1 Mild leucocytosis h/o post pericardiotomy syndrome H/o atrial fibrillation Attestations Medical Necessity Statement*: Patient seems stable to be discharged home today. Coding Level of Care Code Acute Customs Appraiser for [facility] Fwd Diagnoses NSTEMI (non-ST elevated myocardial infarction) I21.4 Aortic valve replaced Z95.2 Hypertension I10 Hypertension type: essential hypertension Congestive heart failure I50.32 Heart failure type: diastolic Heart failure chronicity: chronic BPH (benign prostatic hyperplasia) N40.0 Lower urinary tract symptom presence: unspecified whether lower urinary tract symptoms present
--- NOTE | 2020-04-20 14:51 | PM.DCS ---
Discharge Providers Date of Admission: 04/19/20 00:35 Date of Discharge: April 20, 2020 Attending Provider at Admission: Harsh Allred MD Attending Provider at Discharge: Harini Mckinney MD Consults: Cardiology Primary Care Provider: Jesus Nguyen MD Diagnoses at Discharge Discharge Diagnosis (1) Elevated troponin: Status: Acute Problem details: -noted troponin elevation, significant delta; no noted acute ischemic changes on ECG -has hx of atypical chest pain, follows up with Dr. Richard PEREZ -VSS, continue to monitor -Cardiology evaluation appreciated -on BB, ASA, statin -previously wanted to hold off on repeat myocardial perfusion imaging; did have a nuclear stress test done on 02/2018 showing areas of persistently decreased uptake in the inferior wall and apical anterior wall regions suggestive of scarring, no significant coronary ischemia -noted TSH, lipid panel, A1c -Echo: EF=55-60%, no RWMA, mechanical aortic valve well-seated, trace MR, trace TR, trace IN. Previous one done in 09/2018 with G2DD, mild pulmonary HTN; limited study -cath today, unremarkable (2) Hypertension: Status: Chronic Problem details: -VSS; continue to monitor -continue oral antihypertensives Qualifiers: Hypertension type: essential hypertension Qualified Code(s): I10 - Essential (primary) hypertension (3) Aortic valve replaced: Status: Chronic Problem details: -Mechanical. On anticoagulation. -Subtherapeutic INRs will need bridging with therapeutic Lovenox for a few days (4) BPH (benign prostatic hyperplasia): Status: Chronic Problem details: -on Flomax Qualifiers: Lower urinary tract symptom presence: unspecified whether lower urinary tract symptoms present Qualified Code(s): N40.0 - Benign prostatic hyperplasia without lower urinary tract symptoms (5) Congestive heart failure: Status: Chronic Problem details: -no acute exacerbation -Echo as noted above -on oral lasix Qualifiers: Heart failure type: diastolic Heart failure chronicity: chronic Qualified Code(s): I50.32 - Chronic diastolic (congestive) heart failure Other Information Additional DC diagnoses/information: -mild hypokalemia; resolved, on supplementation -pre-DM, A1c-6.1 -Obesity: BMI-32 kg/m2 -Chronic pain, on chronic narcotics -hx of TIA -Anxiety; on anxiolytics -Chronic normocytic anemia; baseline Hg is around 11 -CKD stage 2, baseline Cr around 0.8-0.9 Reason for Visit Reason for Visit: hx angina, chest pain resolved Hospital Course Hospital Course: Patient was admitted to the cardiac stepdown unit and placed on telemetry monitoring. He was found to have elevated troponins with significant delta though with no noted ischemic changes on EKG or telemetry. Cardiology was consulted and recommended a left heart cath which patient had earlier today with no noted significant lesions. Repeat echo was done with noted ejection fraction of 55 to 60%, well-seated mechanical aortic valve. He has been hemodynamically stable, afebrile and on room air. He is on anticoagulation with Coumadin secondary to having a mechanical valve; this was held here and he was switched to heparin drip in anticipation of left heart cath and due to NSTEMI. Coumadin can be resumed on discharge though with subtherapeutic INR at 1.95 will require some bridging with therapeutic Lovenox for a few days. He will have his INR checked either by his primary care provider or at heart care services during his follow-up appointment in 1 week. He is advised to be more consistent in terms of taking his metoprolol for more consistent heart rate control. Due to question of potentially having had episodes of paroxysmal atrial fibrillation 21-day event monitor has been ordered per recommendation by cardiology. Hemoglobin has been stable with no need for transfusion of any blood products. Renal function has been stable. He will be discharged home today with follow-up with his primary care provider within 1 week and at heart care services in 1 week. Discharge Summary: -Patient to follow-up with Dr. Nguyen within 1 week -Patient to follow-up with Mary Davis at heart care services in 1 week. He will need to picker and packer he is 21-day event monitor at heart care services. Physical Exam Const: COMMON NORMALS: no acute distress, patient oriented x3 and alert GENERAL APPEARANCE: cooperative and comfortable NUTRITIONAL APPEARANCE: obese ORIENTATION/CONSCIOUSNESS: Yes awake HENMT: COMMON NORMALS: normocephalic, atraumatic, hearing grossly normal bilaterally and moist oral mucous membranes HEAD & SCALP: normocephalic and atraumatic Eye: COMMON NORMALS: Equal, round and reactive pupils present, EOMs intact bilaterally and conjunctivae normal CONJUNCTIVA: Yes conjunctivae normal PUPIL: Yes Equal, round and reactive pupils present Neck/C-Spine: COMMON NORMALS: full ROM GENERAL: Yes normal visual inspection and Yes trachea midline Resp: COMMON NORMALS: normal respiratory effort, No retractions, No use of accessory muscles and clear to auscultation bilaterally EFFORT & INSPECTION: Yes able to speak in complete sentences, Yes symmetric chest movement and No tachypneic AUSCULTATION: clear to auscultation bilaterally Cardio: COMMON NORMALS: regular rate, regular rhythm, S1 normal heart sound present, S2 normal heart sound present and No murmurs present (Cardio) RATE: regular rate RHYTHM: regular rhythm HEART SOUNDS: S1 normal heart sound present and S2 normal heart sound present GI: COMMON NORMALS: Normal to inspection, nondistended, normoactive bowel sounds present, Soft to palpation and non-tender INSPECTION: Yes central obesity PALPATION: Yes Soft to palpation Extremity: COMMON NORMALS: normal to inspection, full ROM, no clubbing, cyanosis or edema and no pedal edema NARRATIVE EXTREMITY EXAM: -TR band on R wrist Neuro: COMMON NORMALS: patient oriented x3, moves all extremities, no focal motor deficits and no sensory deficits noted SENSORIUM/ORIENTATION: Yes alert Psych: COMMON NORMALS: mental status grossly normal, Normal thought process present, cooperative, normal affect and speech normal SPEECH: Yes normal speech THOUGHT PROCESS: Normal thought process present Skin: COMMON NORMALS: no rashes or lesions noted, no jaundice, no petechiae and no mottling GENERAL SKIN EXAM: no rashes or lesions noted Discharge Data Data Completed and Pending: Completed Studies During Hospitalization Category Date Time Status DRUG ENFORCEMENT AGENT request for service Routin e Exams 04/20/20 21:23 Completed XR chest 1V wolfgang ble [id number] Stat Exams 04/18/20 21:32 Completed CV echo complete* [id number] Routine Ultrasound 04/19/20 01:26 Completed Pending at discharge Category Date Time Status Platelet Count Q2 D Lab 04/21/20 04:00 Ordered Platelet Count Q2 D Lab 04/23/20 04:00 Ordered Prothrombin Time INR AM LABS Lab 04/21/20 04:00 Ordered Labs from last 24 hours 04/20/20 04/20/20 04/20/20 05:09 05:09 05:09 WBC 9.3 RBC 4.42 Hgb 12.0 Hct 38.9 L MCV 88.0 MCH 27.1 L MCHC 30.8 RDW 13.4 Plt Count 257 MPV 9.7 Neut % (Auto) 65.8 Lymph % (Auto) 18.9 [place] % (Auto) 9.4 Eos % (Auto) 3.9 Baso % (Auto) 0.9 Neut # (Auto) 6.12 Lymph # (Auto) 1.8 [place] # (Auto) 0.9 Eos # (Auto) 0.4 Baso # (Auto) 0.1 Nucleated RBC % (a uto) 0 Nucleated RBCs # 0.0 PT INR APTT 153.2 H* Sodium 133 L Potassium 4.1 Chloride 95 L Carbon Dioxide 30 H Anion Gap 12.1 BUN 19 Creatinine 0.8 GFR Calculation 95.6 Glucose 116 H Calculated Osmolal ity 273 L Calcium 8.4 L 04/20/20 04/19/20 05:09 20:05 WBC RBC Hgb Hct MCV MCH MCHC RDW Plt Count MPV Neut % (Auto) Lymph % (Auto) [place] % (Auto) Eos % (Auto) Baso % (Auto) Neut # (Auto) Lymph # (Auto) [place] # (Auto) Eos # (Auto) Baso # (Auto) Nucleated RBC % (a uto) Nucleated RBCs # PT 22.90 H INR 1.95 H APTT > 250.0 H* Sodium Potassium Chloride Carbon Dioxide Anion Gap BUN Creatinine GFR Calculation Glucose Calculated Osmolal ity Calcium Vitals: Last Vital Signs Temp 98.4 F 04/20/20 11:11 Pulse 72 04/20/20 12:45 Resp 15 04/20/20 12:45 BP 111/59 04/20/20 12:45 Pulse Ox 94 04/20/20 12:45 Discharge Plan Discharge Patient Disposition: Home Condition: Stable Prescriptions: New atorvastatin 40 mg Tablet 40 mg PO BEDTIME 30 Days Qty: 30 RF: 0 clopidogrel 75 mg Tablet 75 mg PO DAILY 30 Days Qty: 30 RF: 0 enoxaparin 100 mg/mL syringe 100 mg SUBCUT Q12H Qty: 10 RF: 0 Continued nitroglycerin [Nitrostat] 0.4 mg tablet, sublingual 0.4 mg SUBLINGUAL Q5M PRN (Reason: Chest Pain) RF: 0 albuterol sulfate [ProAir HFA] 90 mcg/actuation HFA aerosol inhaler 2 puff INHALATION Q6H PRN (Reason: Shortness Of Breath) RF: 0 digoxin 125 mcg (0.125 mg) tablet 125 mcg PO DAILY RF: 0 senna-docusate sodium Tablet 2 tab PO BID RF: 0 aspirin [Adult Low Dose Aspirin] 81 mg tablet,delayed release (DR/EC) 81 mg PO DAILY RF: 0 tamsulosin 0.4 mg capsule 0.4 mg PO DAILY RF: 0 hydromorphone [Dilaudid] 4 mg tablet 4 mg PO Q4H PRN (Reason: Pain) RF: 0 alprazolam 0.25 mg tablet 0.5 mg PO BID PRN (Reason: anxiety) RF: 0 furosemide 20 mg tablet 20 mg PO DAILY RF: 0 morphine 200 mg tablet extended release 400 mg PO BID PRN (Reason: pain) RF: 0 potassium chloride 10 mEq tablet,ER particles/crystals 10 meq PO BID RF: 0 magnesium oxide 400 mg magnesium tablet 400 mg PO BID Qty: 180 RF: 3 prednisone 20 mg Tablet 20 mg PO DAILY RF: 0 metoprolol tartrate 25 mg tablet 25 mg PO DAILY 30 Days Qty: 30 RF: 0 warfarin 3 mg tablet 3 mg PO DAILY 30 Days Qty: 30 RF: 0 Discontinued methylprednisolone [Medrol (Joseph)] 4 mg tablets,dose pack See Rx Instructions PO PER PKG DIR Qty: 21 RF: 0 Discharge Orders: Discharge Order (Routine); Ordered 04/20/20 Ordered By: Harini Mckinney Other Ambulatory Orders: [place] cardiac event monitor (Routine) Timeframe: 1 Day Facility: [facility] - Location: Cardiac Diagnostic Laboratory Ordered By: Harini Mckinney Referrals: Mary Davis FNP [Nurse Practitioner] - 1 week (Post-cath check, needs labs including INR) Jesus Nguyen MD [Primary Care Provider] - 4-7 days Discharge Diet: Cardiac Discharge Activity: Increase activity as tolerated Patient Instructions: Enoxaparin (Injection), Atorvastatin (By mouth), Clopidogrel (By mouth), Myocardial Infarction (DC), Left Heart Catheterization (DC), Hypokalemia (DC), Chest Pain Stoplight, Post Angiogram Home Care Instructions Discharge Attestations Time Spent in Discharge Care*: less than 30 min Specific Discharge Activities: Specific discharge activities: educating patient, discussing with pcp/other providers, discussing with case consultant/social workers/dc planners, documenting/other paperwork and evaluating patient/reviewing data Status at Discharge: Cognitive status at discharge: cognitively intact, Behavioral status at discharge: cooperative and independent in ADL's, Overall status at discharge: patient is progressing back to baseline Quality Metrics Clinical Quality Measures During this hospital stay, did patient experience: None Coding Level of Care Code Acute Human Anatomy Teacher for Chg Fwd Diagnoses Elevated troponin R79.89 Hypertension I10 Hypertension type: essential hypertension Aortic valve replaced Z95.2 BPH (benign prostatic hyperplasia) N40.0 Lower urinary tract symptom presence: unspecified whether lower urinary tract symptoms present Congestive heart failure I50.32 Heart failure type: diastolic Heart failure chronicity: chronic
--- NOTE | 2020-04-20 15:45 | PC.NURSE ---
Pt preferred [facility] pharmacy today since [facility] is close.
--- NOTE | 2020-04-20 16:00 | PC.NURSE ---
Lovenox injection teaching Informed pt that he will be giving a lovenox injection subcutaneously in the abdomen for an overlap therapy with his coumadin as discussed with the media buyer at bedside. The Pt stated he had given Lovenox shots in the past. Re-educated patient on how to give the lovenox injection subcutaneously. Pt teaches back such as wiping skin area with alcohol swab, then he demonstrated giving the prescribed dose in the syringe in his right lower abdomen. Pt teaches back on how to safely discard the sharp needle. I asked patient if he has alcohol swabs at home and he stated he has them at home. I asked pt what to use if he does not have sharps container at home, he teaches back he will use an empty gallon of milk.
--- NOTE | 2020-04-20 16:11 | PC.NURSE ---
notify case mgt/SW on transportation Pt said he does not have a ride and a cab/taxi will do. informed SW and pt chooses [employer]. Informed pt that he needs to get his new meds tonight at [facility]. they are open until 6 pm. and tomorrow from 10 am to 6 pm. SW said that the cab will take pt to [facility] then home. Informed pt regarding cost of cab. Pt is okay with 7$. Pt said he will call the [facility] pharmacy for the cost of his lovenox.
--- NOTE | 2020-04-20 16:30 | PC.NURSE ---
Discharge Instructions Informed pt to follow-up with his pcp and nailing machine feeder as discussed. He stated he has a follow-up appointment with the pain clinic doctor on Tuesday. Educated pt on the importance of medication adherence as discussed with his doctors. Educated pt on his new discharge meds dosing, timing, possible side effects and its actions. Provided pt with the discharge med list and discharge packet. Pt asked questions regarding his Isosorbide to his nailing machine feeder at bedside and is concerned with it lowering his bp. Informed pt of the low dose ordered and the benefit of the medication, to check his BP and heart rate everyday and keep a record of it to bring the record to his next cardiology ff-up appointment. Instructed pt to keep a record of his INR levels and administer Lovenox subcutaneously every 12 hours for overlap therapy with Coumadin. Informed pt to restart warfarin this evening and overlap with Lovenox for next 3 to 4 days and recheck INR next week as prescribed. To take his metoprolol 12.5 mg twice a day and Isosorbide 2.5 mg twice a day as discussed. Pt verbalizes understanding and teaches back well. Ushered pt via wheelchair.
[2020-04-20] MEDS: enoxaparin 100 mg/mL Syringe SUBCUT (16:54)
--- NOTE | 2020-04-20 17:19 | PC.NURSE ---
transportation is here [facility] here for his transportation.
--- NOTE | 2020-04-20 21:23 | XACV_ITS ---
Exam Room: 103 Ht: 173 cm Wt: 95 kg BSA: 2.16 m2 Gender: Male : 1950 Any Known Allergies: Other Exam Priority: Routine Procedure(s): Procedure Description: Diagnostic procedure Procedure Description: Coronary angiography Diagnostic Cath Status: Urgent Diagnostic Findings LAD has Luminal irregularities. It tapers downs in the distal segment. RCA has mild luminal irregularities. LM has 0% stenosis. pCIRC: Mild 20% stenosis, PATRICIA: 3 flow. Coronary angiography shows right dominance. Conclusions There is mild non-obstructive coronary artery disease. Possible microvascular dysfunction. Recommendations Consider long acting nitrates. Diagnostic RX Recommendation: medical therapy and/or counseling Pressures Phase:Rest AO : 118 mmHg / 62 mmHg ( 85 mmHg ) @ 4:05:00 AM Clinical Evaluation EBL: 5mL-10mL Procedural Details Procedure Consent Obtained. Pre-Procedure Time Out. Identified patient by full name and date of as verbalized by the patient/guarantor. Does the consent match the physician's order: Yes. Accurate & Complete Informed Consent: Yes. Inpatient/Outpatient History & Physical on Chart: Yes. If H&P is completed, is and addenduem needed: No; If yes, is the addendum complete: N/A. Visualize and Verify Site with Patient/Guarantor: N/A. Relevant Radiology Images available: N/A. Pre-op teaching completed and patient verbalized understanding. The risks, benefits, and alternatives of sedation and/or procedure were discussed by physician. The patient agrees to continue. Procedure started. Correct patient, site and procedure confirmed by cath team. PERRLA. Strong, equal hand pharmacology professor bilaterally. Lungs clear x 5 lobes. [facility] Clinical Fraility Score: 2: Well. Spare Person Indications: ACS > 24 hours. Chest Pain Symptom Assessment: Atypical Angina. Cardiovascular Instability: No. Physician arrived. IV Site on Arrival: 20 gauge in the left forearm. IV Fluids: 0.9% NaCl at KVO. 0 mL infused prior to laboratory equipment cleaner. Pre Procedural Pulses: bilateral dorsalis pedis was 1+. Pre Procedural Pulses: bilateral posterior tibial was 1+. Pre Procedural Pulses: bilateral radial was 3+. Oxygen started at 2liters/min via nasal canula. bilateral groins was prepped with chloroprep then draped in the usual sterile fashion. right radial was prepped with chloroprep then draped in the usual sterile fashion. Baseline sample Acquired. HR: 77 BPM. Equipment: 6F - Radial. Cardiac Cath Pack. ACIST Manifold Kit Model BT 2000. Heparinized Saline (2 units/mL), 1000 mL bag. Physician scrubbed in. Immediate Pre-Procedure Time Out. Correct Patient: Yes; Correct Procedure: Yes; Correct Site: Yes; Correct Patient Position: Yes; Correct Supplies: Yes; Dried Flammable Prep: Yes; Blood Products Available: N/A;. Lidocaine 1% infiltrated to the right radial. Arterial access obtained. ACT drawn. Results 174 seconds. Therapeutic limits - pre-heparin administration 90-150 seconds and monitoring heparin during a vascular procedure >250 seconds. A 5 belizean TIG catheter in over wire. Multiple views taken of left coronary artery. Catheter redirected to the RCA. Catheter out. A CRD 5F JR4 Diagnostic Catheter was advanced over the wire and used for Right coronary angiography. Multiple views taken of right coronary artery. Catheter out. Physician scrubbed out. Total IV fluids: 30.7 mL. A TR Band was successful obtaining hemostatsis at the Right Radial artery insertion site. TR band placed. Hemostasis obtained. Post Procedure: Pulses reassessed and unchanged. PERRLA. Strong, equal hand pharmacology professor bilaterally. No VTE prophylaxis required. Medication's Wasted: Lidocaine 1% = 18 mL. Medication's Wasted: Nitro = 49.8 mg. Medication's Wasted: Heparin = 3000 units. Medication's Wasted: Other = versed 1 mg. Medication's Wasted: Other = fentanyl 25 mcg. Contrast type used: Omnipaque 300 mgI/mL, 500 mL bottle. Complications: none. Post-op diagnosis: non obstructive CAD. Estimated blood loss: 5mL-10mL. Procedure completed. Patient transferred by bed to 1st floor. Vital chart was stopped. Site: Right Radial artery Sheath Size: 6 Fr Hemostasis Method: TR Band Hemostasis Success: Successful Procedure Medications Start: 8:53 AM Stop: 8:53 AM Medication: Versed Amount: 1 mg Route: I.V. Start: 8:53 AM Stop: 8:53 AM Medication: Fentanyl Amount: 25 mcg Route: I.V. Start: 8:59 AM Stop: 8:59 AM Medication: Versed Amount: 1 mg Route: I.V. Start: 8:59 AM Stop: 8:59 AM Medication: Fentanyl Amount: 25 mcg Route: I.V. Start: 9:04 AM Stop: 9:04 AM Medication: Heparin Amount: 3000 units Route: I.V. Start: 9:07 AM Stop: 9:07 AM Medication: Versed Amount: 1 mg Route: I.V. Start: 9:07 AM Stop: 9:07 AM Medication: Fentanyl Amount: 25 mcg Route: I.V. Start: 9:01 AM Stop: 9:01 AM Medication: Nitrogylcerin Amount: 200 mcg Route: I.A. I, the attending physician, have reviewed and verified all procedure medications. Yes, all medications given per verbal order History/Risk Factors Hypertension: Yes Dyslipidemia: No Peripheral Arterial Disease (PAD): No Myocardial Infarction ([place]): No Obesity: No Renal Disease: No Tobacco Use: Former Prior Interventions PCI: No CABG: No Valve Surgery: Yes Report Signatures Finalized by:Kristian Rios MD on 04/20/2020 9:59:57 AM
== END 2020-04-20 17:20 | disposition home or self-care (01) ==
LOC: ER 21:50 → CSU 04-19 01:03
PROVIDERS: Emergency Medicine; Internal Medicine; Internal Medicine Cardiovascular Disease; Admitting Provider Internal Medicine; PCP Family Medicine; Visit Provider Family Medicine
DX: I21.4 Non-ST elevation (NSTEMI) myocardial infarction (principal); I25.10 Atherosclerotic heart disease of native coronary artery without angina pectoris; I13.0 Hypertensive heart and chronic kidney disease with heart failure and stage 1 through stage 4 chronic kidney disease, or unspecified chronic kidney disease; N18.2 Chronic kidney disease, stage 2 (mild); I50.32 Chronic diastolic (congestive) heart failure; Z86.73 Personal history of transient ischemic attack (TIA), and cerebral infarction without residual deficits; Z79.01 Long term (current) use of anticoagulants; Z95.2 Presence of prosthetic heart valve; Z87.891 Personal history of nicotine dependence; N40.0 Benign prostatic hyperplasia without lower urinary tract symptoms; E87.6 Hypokalemia; E66.9 Obesity, unspecified; Z68.32 Body mass index [BMI] 32.0-32.9, adult; D64.9 Anemia, unspecified; G89.29 Other chronic pain; Z79.891 Long term (current) use of opiate analgesic; R79.89 Other specified abnormal findings of blood chemistry; I44.7 Left bundle-branch block, unspecified; E78.5 Hyperlipidemia, unspecified; Z79.82 Long term (current) use of aspirin; Z86.79 Personal history of other diseases of the circulatory system; F41.9 Anxiety disorder, unspecified; R73.9 Hyperglycemia, unspecified
CPT/HCPCS: 12345; 36415; 71045; 80048; 80053; 80061; 80162; 82550; 83036; 83735; 83880; 84443; 84484; 85025; 85347; 85610; 85730; 93005; 93306; 93454; 96365; 96366; 96372; 99282; 99285; C1769; C1887; C1894; G0378; J1644; J1650; J2250; J3010; J3490; J7030; J7512; Q0163; Q9967

== ENCOUNTER 2020-04-21 12:00 | Emergency (ER) | payer MEDICARE, MEDICAID, SELFPAY ==
[2020-04-21 12:10] VITALS: BP 124/70; PULSE 71; RESP 16; TEMP 36.4; O2SAT 96; BMI 30.7
[2020-04-21 12:15] VITALS: PULSE 73; RESP 17; O2SAT 95
[2020-04-21 13:15] LABS: Basophils % 0.4 %; Eosinophils # 0.1 10^3/uL (0.0-0.8); Eosinophils % 0.6 %; Hematocrit 40.2 % (42.0-52.0); Hemoglobin 12.7 g/dL (11.7-16.6); Lymphocytes # 0.7 10^3/uL (0.8-4.8); Lymphocytes % 6.7 %; Mean Corpuscular HGB Conc 31.6 g/dL (30.0-36.0); Mean Corpuscular Hemoglobin 27.5 pg (28.0-34.0); Mean Corpuscular Volume 87.2 fL (80-94); Mean Platelet Volume 9.1 fL (7.4-10.4); Monocytes # 0.5 10^3/uL (0.2-0.9); Monocytes % 4.7 %; Neutrophils # 8.52 10^3/uL (1.8-7.7); Neutrophils % 86.8 %; Nucleated Red Blood Cells % 0 %; Platelet Count 255 10^3/cmm (130-400); Red Blood Count 4.61 10^6/uL (4.1-5.3); White Blood Count 9.8 10^3/uL (4.0-10.0)
--- NOTE | 2020-04-21 13:19 | ED_ITS ---
HPI - Skin/Abscess/Foreign Bdy General: Chief complaint: Skin/Abscess/Foreign Body Stated complaint: released 04/20 gave shot bleeding Time Seen by Provider: 04/21/20 12:22 History of Present Illness: HPI narrative: 69-year-old male patient presents to the emergency department with skin issue. He reports received Lovenox injection yesterday during admission, discharged from the hospital yesterday. He reports administered himself Lovenox while attempting to teach himself how to do it at home. He reports did not receive prescription for Lovenox due to negative angiogram results. Reports woke this morning with blood all over the bed, states bleeding from the Lovenox injection site, he has attempted to hold pressure without cessation of bleeding. He denies pain. He states, may have tightened my belt too tight and caused it to bleed . He denies continued anticoagulation medication, reports is not currently taking warfarin. He has follow-up with his primary care physician this week. MD complaint: other (puncture wound) Onset (ago): hour(s) Location: generalized (right lower abd) Associated symptoms: Deny chills, fever(s), nausea or vomiting Review of Systems General: Reports: 10 or more systems reviewed and unremarkable except in HPI and below Const: Denies: fever(s), chills or diaphoresis Eyes: Denies: blurry vision or eye redness ENMT: Denies: throat pain, dental pain or disequilibrium Card: Denies: chest pain, palpitations or irregular heart rhythm Resp: Denies: dyspnea, productive cough, non-productive cough or wheezing GI: Denies: abdominal pain, nausea or vomiting : Denies: dysuria Musc: Denies: back pain Skin/Breast: Reports: skin tenderness and sores (RLQ abd); Denies: rash or pruritus Neuro: Denies: headache(s), weakness in extremities or behavioral changes Noel/Lymph: Denies: easy bruising PFS ED PFSH: Medical History (Updated 04/21/20 @ 13:40 by ROBERTO CARLOS Birch) Anemia Anxiety Arthritis Atrial fibrillation This is not confirmed in his old records but patient believes this is the reason he is on digoxin when asked. Atypical chest pain BPH (benign prostatic hyperplasia) -on Flomax Chest pain Chronic back pain Congestive heart failure -no acute exacerbation -Echo as noted above -on oral lasix Diastolic heart failure Elevated troponin -noted troponin elevation, significant delta; no noted acute ischemic changes on ECG -has hx of atypical chest pain, follows up with Dr. Richard PEREZ -VSS, continue to monitor -Cardiology evaluation appreciated -on BB, ASA, statin -previously wanted to hold off on repeat myocardial perfusion imaging; did have a nuclear stress test done on 02/2018 showing areas of persistently decreased uptake in the inferior wall and apical anterior wall regions suggestive of scarring, no significant coronary ischemia -noted TSH, lipid panel, A1c -Echo: EF=55-60%, no RWMA, mechanical aortic valve well-seated, trace MR, trace TR, trace SC. Previous one done in 09/2018 with G2DD, mild pulmonary HTN; limited study -cath today, unremarkable GI bleed History of amputation of left great toe Hypertension -VSS; continue to monitor -continue oral antihypertensives NSTEMI (non-ST elevated myocardial infarction) Transient ischemic attack Surgical History (Updated 04/21/20 @ 00:02 by ) Aortic valve replaced -Mechanical. On anticoagulation. -Subtherapeutic INRs will need bridging with therapeutic Lovenox for a few days History of hernia repair History of knee surgery Hx of appendectomy Previous back surgery Family History Other Congenital heart disease Social History Smoking and tobacco status: former smoker Alcohol intake: current Alcohol intake frequency: 0-2 Drinks per Day Alcohol type: beer Physical Exam Const: COMMON NORMALS: no acute distress, patient oriented x3 and alert GENERAL APPEARANCE: cooperative, comfortable and well hydrated HENMT: COMMON NORMALS: normocephalic, Normal external nose present and moist oral mucous membranes HEAD & SCALP: normocephalic NOSE: Normal external nose present Eye: COMMON NORMALS: Equal, round and reactive pupils present and EOMs intact bilaterally GENERAL EYE: appearance normal, both eyes and all related structures PUPIL: Yes Equal, round and reactive pupils present Neck/C-Spine: COMMON NORMALS: full ROM and no lymphadenopathy GENERAL: Yes normal visual inspection and Yes trachea midline CERVICAL SPINE: Yes cervical ROM normal Lymph: LYMPHATIC: no lymphadenopathy noted Chest: COMMONS NORMALS: normal inspection of the chest Resp: COMMON NORMALS: normal respiratory effort and clear to auscultation bilaterally AUSCULTATION: clear to auscultation bilaterally Cardio: COMMON NORMALS: regular rhythm, S1 normal heart sound present and S2 normal heart sound present RHYTHM: regular rhythm HEART SOUNDS: S1 normal heart sound present and S2 normal heart sound present GI: COMMON NORMALS: Soft to palpation and non-tender INSPECTION: Yes normal to inspection PALPATION: Yes Soft to palpation : COMMON NORMALS: Yes no CVA tenderness BLADDER/KIDNEY EXAM: Yes no CVA tenderness Back/Pelvis: COMMON NORMALS: no CVA tenderness and thoracic and lumbar spine normal to inspection Extremity: COMMON NORMALS: normal to inspection and capillary refill normal Neuro: COMMON NORMALS: patient oriented x3 and no focal motor deficits SENSORIUM/ORIENTATION: Yes alert Psych: COMMON NORMALS: mental status grossly normal, Normal thought process present and cooperative ACTIVITY/MOTOR BEHAVIOR: Yes appropriate eye contact THOUGHT PROCESS: Normal thought process present Skin: COMMON NORMALS: no rashes or lesions noted and turgor normal NARRATIVE SKIN EXAM: small puncture wound to the RLQ - 2 cm annular area of ecchymosis, slow oozing from the site - pressure dressing with blood GENERAL SKIN EXAM: no rashes or lesions noted and turgor normal Course ED course: 69-year-old male patient presents to the emergency department with complaints of bleeding from Lovenox injection site of the right lower quadrant. Pressure dressing was applied, bleeding was slowed. He was advised not to scratch or rub the area due to risk of continued bleeding. Verbalized understanding, INR 1.49, not anemic, questions were discussed/answered, verbalized understanding for follow-up with his primary care this week. Vital Signs: Vital signs: Vital Signs Temperature 97.6 F 04/21/20 12:10 Pulse Rate 72 04/21/20 15:08 Respiratory Rate 18 04/21/20 15:08 Blood Pressure 125/65 04/21/20 15:08 Pulse Oximetry 98 04/21/20 15:08 MDM - Skin/Abscess/Foreign Bdy Differential Diagnosis: Skin/Abscess Differential Diagnosis: Likely abscess of skin or subcutaneous tissue and cellulitis Lab Data: Labs: Lab Results 04/21/20 04/21/20 Range/Units 13:00 13:00 WBC 9.8 (4.0-10.0) 10^3/ uL RBC 4.61 (4.1-5.3) 10^6/u L Hgb 12.7 (11.7-16.6) g/dL Hct 40.2 L (42.0-52.0) % MCV 87.2 (80-94) fL MCH 27.5 L (28.0-34.0) pg MCHC 31.6 (30.0-36.0) g/dL RDW 13.0 (12.1-15.1) % Plt Count 255 (130-400) 10^3/c mm MPV 9.1 (7.4-10.4) fL Neut % (Auto) 86.8 % Lymph % (Auto) 6.7 % [place] % (Auto) 4.7 % Eos % (Auto) 0.6 % Baso % (Auto) 0.4 % Neut # (Auto) 8.52 H (1.8-7.7) 10^3/u L Lymph # (Auto) 0.7 L (0.8-4.8) 10^3/u L [place] # (Auto) 0.5 (0.2-0.9) 10^3/u L Eos # (Auto) 0.1 (0.0-0.8) 10^3/u L Baso # (Auto) 0.0 (0.0-0.1) 10^3/u L Nucleated RBC % (a uto) 0 % Nucleated RBCs # 0.0 /100WBC PT 18.50 H (12.1-14.9) SECO NDS INR 1.49 H (0.8-1.2) Discharge Plan Discharge Patient Disposition: Home Clinical Impression: Puncture wound of abdomen Qualifiers: Encounter type: initial encounter Qualified Code(s): S31.139A - Puncture wound of abdominal wall without foreign body, unspecified quadrant without penetration into peritoneal cavity, initial encounter Condition: Stable Prescriptions: No Action nitroglycerin [Nitrostat] 0.4 mg tablet, sublingual 0.4 mg SUBLINGUAL Q5M PRN (Reason: Chest Pain) RF: 0 albuterol sulfate [ProAir HFA] 90 mcg/actuation HFA aerosol inhaler 2 puff INHALATION Q6H PRN (Reason: Shortness Of Breath) RF: 0 digoxin 125 mcg (0.125 mg) tablet 125 mcg PO DAILY RF: 0 senna-docusate sodium Tablet 2 tab PO BID RF: 0 aspirin [Adult Low Dose Aspirin] 81 mg tablet,delayed release (DR/EC) 81 mg PO DAILY RF: 0 tamsulosin 0.4 mg capsule 0.4 mg PO DAILY RF: 0 hydromorphone [Dilaudid] 4 mg tablet 4 mg PO Q4H PRN (Reason: Pain) RF: 0 alprazolam 0.25 mg tablet 0.5 mg PO BID PRN (Reason: anxiety) RF: 0 furosemide 20 mg tablet 20 mg PO DAILY RF: 0 morphine 200 mg tablet extended release 400 mg PO BID PRN (Reason: pain) RF: 0 potassium chloride 10 mEq tablet,ER particles/crystals 10 meq PO BID RF: 0 magnesium oxide 400 mg magnesium tablet 400 mg PO BID Qty: 180 RF: 3 prednisone 20 mg Tablet 20 mg PO DAILY RF: 0 atorvastatin 40 mg Tablet 40 mg PO BEDTIME 30 Days Qty: 30 RF: 0 enoxaparin 100 mg/mL syringe 100 mg SUBCUT Q12H Qty: 10 RF: 0 warfarin 3 mg tablet 3 mg PO DAILY 30 Days Qty: 30 RF: 0 metoprolol tartrate 25 mg Tablet 12.5 mg PO BID 30 Days Qty: 30 RF: 0 isosorbide dinitrate 5 mg tablet 2.5 mg PO BID 30 Days Qty: 30 RF: 0 Discharge Orders: Discharge Order (Routine); Ordered 04/21/20 Ordered By: Adilene Lewis Referrals: Jesus Nguyen MD [Primary Care Provider] - Discharge Diet: Usual diet Discharge Activity: Resume usual activity Patient Instructions: Puncture Wound (ED), Abrasion (ED) Activity Restrictions/Additional Instructions: Apply pressure to the site when bleeding occurs Change pressure dressing as needed, such as when saturated Follow-up with your doctor this week as scheduled Avoid rubbing the site with clothing or other irritants that can cause bleeding. Return to the emergency department if you develop inability to stop bleeding or other concerning symptoms. Your INR was 1.49 today. Discharge Date/Time: 04/21/20 15:13 Coding Level of Care Code ED Order Fulfillment Specialist for Adela Fwd Exam Comprehensive
[2020-04-21 13:31] LABS: INR 1.49 (0.8-1.2)
[2020-04-21 15:08] VITALS: BP 125/65; PULSE 72; RESP 18; O2SAT 98
== END 2020-04-21 15:13 | disposition home or self-care (01) ==
PROVIDERS: Emergency Provider Nurse Practitioner Family; PCP Family Medicine
DX: S31.139A Puncture wound of abdominal wall without foreign body, unspecified quadrant without penetration into peritoneal cavity, initial encounter (principal); Z79.82 Long term (current) use of aspirin; Z79.01 Long term (current) use of anticoagulants; W46.0XXA Contact with hypodermic needle, initial encounter; I48.91 Unspecified atrial fibrillation; I11.0 Hypertensive heart disease with heart failure; I50.30 Unspecified diastolic (congestive) heart failure; I25.2 Old myocardial infarction; Z86.73 Personal history of transient ischemic attack (TIA), and cerebral infarction without residual deficits; Z87.891 Personal history of nicotine dependence
CPT/HCPCS: 12345; 85025; 85610; 99282

== ENCOUNTER → 2020-04-28 13:49 | Outpatient (BNVA) | payer MEDICARE, MEDICAID, SELFPAY | PROVIDERS: PCP Family Medicine; Visit Provider Nurse Practitioner Family | DX: I50.32 Chronic diastolic (congestive) heart failure (principal) | CPT/HCPCS: 80048 ==

== ENCOUNTER 2020-06-03 12:53 | Outpatient (CLI) | payer MEDICARE, MEDICAID, SELFPAY ==
--- NOTE | 2020-06-03 13:02 | XR_ITS ---
WS: [id number] LEFT SHOULDER: 3 VIEW(S) TECHNIQUE: Internal and external rotation with Y view. HISTORY: SHOULDER PAIN LEFT COMPARISON: 12/18/2015 No fracture or dislocation or soft tissue abnormality. Severe degenerative changes at the AC joint. Subchondral cystic changes with joint space narrowing an d osteophyte formation. Mild degenerative change at the glenohumeral joint. Prior median sternotomy. XR/XR shoulder LT min 2V* [id number] IMPRESSION: 1. Advancing degenerative changes at the LEFT AC joint. 2. No fracture.
--- NOTE | 2020-06-03 13:02 | CT_ITS ---
WS: [id number] CT NECK WITH CONTRAST HISTORY: CERVICAL LYMPHADENOPATHY LEFT TECHNIQUE: Contiguous 5 mm axial images are performed through the neck with intravenous contrast. Sag ittal and coronal reformats are also submitted. All CT scans at [facility] use at least o ne of these dose optimization techniques: automated exposure control; mA and/or kV adjustment per pat ient size (includes targeted exams where dose is matched to clinical indication); or iterative recons truction. CONTRAST: CONTRAST: Omnipaque 300; 95 mL IV. DLP: 2831.65 mGycm COMPARISON: 04/26/2019 Nasopharynx, oropharynx, hypopharynx and larynx are unremarkable. No soft tissue masses or abnormal e nhancement. Torus tubarius and fossa of Rosenmuller and parapharyngeal fat are normal. No significant lymphadenopathy is identified. Normal size thyroid. No nodules. Official areas of mild enhancement LEFT parotid gland similar to the prior study of 04/26/2019. These are probably small parotid lymph nodes. Mild spondylitic changes. No fractures. Visualized portions of the skull base demonstrate no abnormalities. Orbits and globes are within norm al limits. No soft tissue masses. Visualized paranasal sinuses and mastoid air cells are normal. Breathing motion obscuring detail at the lung apices. CT/CT neck w con* [id number] IMPRESSION: 1. No cervical chain lymphadenopathy. Subcentimeter lymph nodes are similar to 04/26/2019. 2. No neck mass.
[2020-06-03] MEDS: iohexol 300 mg/mL 100 mL Btl IV (13:48)
== END 2020-06-03 12:54 | disposition home or self-care (01) ==
PROVIDERS: PCP Family Medicine; Visit Provider Family Medicine
DX: M25.512 Pain in left shoulder (principal); M19.012 Primary osteoarthritis, left shoulder
CPT/HCPCS: 70491; 73030; Q9967

== ENCOUNTER 2020-07-09 12:13 | Emergency (ER) | payer MEDICARE, MEDICAID, SELFPAY ==
[2020-07-09 12:22] VITALS: BP 142/74; PULSE 113; RESP 20; TEMP 36.8; O2SAT 95; BMI 31.9
--- NOTE | 2020-07-09 13:16 | ECG_ITS ---
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
--- NOTE | 2020-07-09 13:16 | XR_ITS ---
WS: [id number] XR chest 1V portable [id number] REASON FOR EXAM: chest pain FINDINGS: Previous thoracotomy and prosthetic valve placement. Moderately tortuous thoracic aorta. Normal heart size. Calcified granulomatous changes in both hemithoraces. No active pulmonary parenchymal or pleural dise ase is identified. Mild changes of degenerative spondylosis in the mid and lower thoracic spine. XR/XR chest 1V portable [id number] IMPRESSION: No acute chest abnormality.
[2020-07-09 13:59] LABS: Basophils # 0.1 10^3/uL (0.0-0.1); Basophils % 0.8 %; Eosinophils # 0.1 10^3/uL (0.0-0.8); Eosinophils % 1.6 %; Hematocrit 39.1 % (42.0-52.0); Hemoglobin 12.4 g/dL (11.7-16.6); Lymphocytes # 0.6 10^3/uL (0.8-4.8); Lymphocytes % 8.9 %; Mean Corpuscular HGB Conc 31.7 g/dL (30.0-36.0); Mean Corpuscular Hemoglobin 26.7 pg (28.0-34.0); Mean Corpuscular Volume 84.3 fL (80-94); Monocytes # 0.5 10^3/uL (0.2-0.9); Monocytes % 7.3 %; Neutrophils % 80.8 %; Nucleated Red Blood Cells % 0 %; Platelet Count 236 10^3/cmm (130-400); Red Blood Count 4.64 10^6/uL (4.1-5.3); Red Cell Distribution Width 13.7 % (12.1-15.1); White Blood Count 6.4 10^3/uL (4.0-10.0)
[2020-07-09 14:09] VITALS: BP 140/74; O2SAT 93
[2020-07-09 14:25] LABS: Troponin(5th) Baseline 17 ng/L (0-15)
[2020-07-09 14:55] LABS: Alanine Aminotransferase 20 U/L (0-41); Albumin Level 4.1 g/dL (3.5-5.2); Alkaline Phosphatase 111 IU/L (40-130); Aspartate Amino Transferase 25 U/L (0-40); Blood Urea Nitrogen 12 mg/dL (8-23); Carbon Dioxide 29 mmol/L (22-29); Chloride 97 mmol/L (98-107); Globulin 3.7 g/dL (1.3-4.6); Glomerular Filtration Rate 95.6 mL/min (90-130); Glucose 158 mg/dL (65-115); Osmolality Calculated 289 mOsm/kg (285-295); Sodium 138 mmol/L (136-145); Total Bilirubin 0.3 mg/dL (0.15-1.2); Total Protein 7.8 g/dL (6.6-8.7)
[2020-07-09 14:57] LABS: Troponin 5 2HR 16.13 ng/L (0-15)
[2020-07-09 15:02] VITALS: BP 121/62; PULSE 91; RESP 26; O2SAT 93
[2020-07-09 15:03] LABS: Troponin 5 2HR Delta -0.87 ABS# (0-10)
--- NOTE | 2020-07-09 15:30 | ED_ITS ---
HPI - Chest Pain General: Chief Complaint: Chest Pain Stated Complaint: CHEST PAIN Time Seen by Provider: 07/09/20 13:16 History of Present Illness: HPI narrative: 69-year-old male presents with complaint of chest pain. He got numbness morning and felt fine he went to the bathroom and on returning back to bed he started getting chest discomfort he took 2 nitro and it resolved he is not having any chest pain at this time. Has had multiple episodes of chest pain in the past and earlier this year was admitted for atypical chest pain cardiology was consulted there is no intervention at that time. He states this is similar to what he had before he took 2 nitro it resolved completely and he is pain-free when I seen him in the emergency room. MD complaint: chest pain Pertinent past history: coronary artery disease Onset (ago): hour(s) Timing of current episode: episodic Prior episodes: Yes Onset: during rest Pain location: substernal Pain radiation: none Severity: moderate Quality: tightness and heaviness Relieving factors: nitroglycerin Exacerbating factors: nothing Associated symptoms: Deny abdominal pain, diaphoresis, dyspnea, fever(s), leg edema, nausea, palpitations, sense of impending doom or vomiting Treatment prior to arrival: nitroglycerin Review of Systems Const: Denies: fever(s) or diaphoresis ENMT: Denies: throat pain, ear or mastoid pain, nasal discharge or nasal congestion Card: Denies: palpitations Resp: Denies: dyspnea GI: Denies: abdominal pain, nausea or vomiting : Denies: flank pain, dysuria, urinary frequency or urinary urgency Skin/Breast: Denies: rash or pruritus PFS ED PFSH: Medical History Anemia Anxiety Arthritis Atrial fibrillation This is not confirmed in his old records but patient believes this is the reason he is on digoxin when asked. Atypical chest pain Bleeding BPH (benign prostatic hyperplasia) -on Flomax Chest pain Chronic back pain Congestive heart failure -no acute exacerbation -Echo as noted above -on oral lasix Coronary artery disease Diastolic heart failure Elevated troponin -noted troponin elevation, significant delta; no noted acute ischemic changes on ECG -has hx of atypical chest pain, follows up with Dr. Richard PEREZ -VSS, continue to monitor -Cardiology evaluation appreciated -on BB, ASA, statin -previously wanted to hold off on repeat myocardial perfusion imaging; did have a nuclear stress test done on 02/2018 showing areas of persistently decreased uptake in the inferior wall and apical anterior wall regions suggestive of scarring, no significant coronary ischemia -noted TSH, lipid panel, A1c -Echo: EF=55-60%, no RWMA, mechanical aortic valve well-seated, trace MR, trace TR, trace PA. Previous one done in 09/2018 with G2DD, mild pulmonary HTN; limited study -cath today, unremarkable GI bleed History of amputation of left great toe Hypertension -VSS; continue to monitor -continue oral antihypertensives Intermittent atrial fibrillation NSTEMI (non-ST elevated myocardial infarction) Transient ischemic attack Surgical History Aortic valve replaced -Mechanical. On anticoagulation. -Subtherapeutic INRs will need bridging with therapeutic Lovenox for a few days History of hernia repair History of knee surgery Hx of appendectomy Previous back surgery Family History Other Congenital heart disease Social History Smoking and tobacco status: former smoker Alcohol intake: current Alcohol intake frequency: 0-2 Drinks per Day Alcohol type: beer Physical Exam Const: COMMON NORMALS: no acute distress GENERAL APPEARANCE: cooperative and comfortable ORIENTATION/CONSCIOUSNESS: Yes awake, Yes oriented to person, Yes oriented to place and Yes oriented to time HENMT: COMMON NORMALS: normocephalic, atraumatic and hearing grossly normal bilaterally HEAD & SCALP: normocephalic and atraumatic Neck/C-Spine: COMMON NORMALS: no JVD Resp: COMMON NORMALS: normal respiratory effort, No retractions, No use of accessory muscles and clear to auscultation bilaterally AUSCULTATION: clear to auscultation bilaterally Cardio: COMMON NORMALS: no JVD, regular rate, regular rhythm and No murmurs present (Cardio) RATE: regular rate RHYTHM: regular rhythm GI: COMMON NORMALS: Soft to palpation and No hepatosplenomegaly present AUSCULTATION: Yes normoactive bowel sounds PALPATION: Yes Soft to palpation, No Tenderness to palpation present (GI), No Guarding due to palpation present (GI) and Yes No hepatosplenomegaly present Extremity: COMMON NORMALS: normal to inspection, capillary refill normal, no clubbing, cyanosis or edema, no calf tenderness and no pedal edema Neuro: SENSORIUM/ORIENTATION: Yes oriented to person, Yes oriented to place and Yes oriented to time Skin: COMMON NORMALS: no rashes or lesions noted GENERAL SKIN EXAM: no rashes or lesions noted Course Vital Signs: Vital signs: Vital Signs Temperature 98.2 F 07/09/20 12:22 Pulse Rate 109 H 07/09/20 15:46 Respiratory Rate 18 07/09/20 15:46 Blood Pressure 109/78 07/09/20 15:46 Pulse Oximetry 94 07/09/20 15:46 MDM - Chest Pain MDM Narrative: Medical decision making narrative: Reviewed previous hospitalization. EKG is left bundle branch block which is old. Discussed with the patient he would prefer to go home he is pain-free at this time troponin is negative. We will go ahead and discharge him home and start him on isosorbide mononitrate. If he has recurrence of symptoms return to follow-up with Dr. Ramos next week. Lab Data: Labs: Lab Results 07/09/20 07/09/20 07/09/20 Range/Units 13:48 13:48 13:48 WBC 6.4 (4.0-10.0) 10^3/ uL RBC 4.64 (4.1-5.3) 10^6/u L Hgb 12.4 (11.7-16.6) g/dL Hct 39.1 L (42.0-52.0) % MCV 84.3 (80-94) fL MCH 26.7 L (28.0-34.0) pg MCHC 31.7 (30.0-36.0) g/dL RDW 13.7 (12.1-15.1) % Plt Count 236 (130-400) 10^3/c mm MPV 9.0 (7.4-10.4) fL Neut % (Auto) 80.8 % Lymph % (Auto) 8.9 % [place] % (Auto) 7.3 % Eos % (Auto) 1.6 % Baso % (Auto) 0.8 % Neut # (Auto) 5.20 (1.8-7.7) 10^3/u L Lymph # (Auto) 0.6 L (0.8-4.8) 10^3/u L [place] # (Auto) 0.5 (0.2-0.9) 10^3/u L Eos # (Auto) 0.1 (0.0-0.8) 10^3/u L Baso # (Auto) 0.1 (0.0-0.1) 10^3/u L Nucleated RBC % (a uto) 0 % Nucleated RBCs # 0.0 /100WBC Sodium Cancelled Potassium Cancelled Chloride Cancelled Carbon Dioxide Cancelled Anion Gap Cancelled BUN Cancelled Creatinine Cancelled GFR Calculation Cancelled Glucose Cancelled Calculated Osmolal ity Cancelled Calcium Cancelled Total Bilirubin Cancelled AST Cancelled ALT Cancelled Alkaline Phosphata se Cancelled Troponin T Baselin e Cancelled Troponin T 120 Min [place] (0-15) ng/L Delta Troponin T (0-10) ABS# Total Protein Cancelled Albumin Cancelled Globulin Cancelled 07/09/20 07/09/20 07/09/20 Range/Units 13:48 13:48 14:18 WBC (4.0-10.0) 10^3/ uL RBC (4.1-5.3) 10^6/u L Hgb (11.7-16.6) g/dL Hct (42.0-52.0) % MCV (80-94) fL MCH (28.0-34.0) pg MCHC (30.0-36.0) g/dL RDW (12.1-15.1) % Plt Count (130-400) 10^3/c mm MPV (7.4-10.4) fL Neut % (Auto) % Lymph % (Auto) % [place] % (Auto) % Eos % (Auto) % Baso % (Auto) % Neut # (Auto) (1.8-7.7) 10^3/u L Lymph # (Auto) (0.8-4.8) 10^3/u L [place] # (Auto) (0.2-0.9) 10^3/u L Eos # (Auto) (0.0-0.8) 10^3/u L Baso # (Auto) (0.0-0.1) 10^3/u L Nucleated RBC % (a uto) % Nucleated RBCs # /100WBC Sodium 138 Potassium 4.0 Chloride 97 L Carbon Dioxide 29 Anion Gap 16.0 BUN 12 Creatinine 0.8 GFR Calculation 95.6 Glucose 158 H Calculated Osmolal ity 289 Calcium 9.0 Total Bilirubin 0.3 AST 25 ALT 20 Alkaline Phosphata se 111 Troponin T Baselin e 17 H Troponin T 120 Min [place] 16.13 H (0-15) ng/L Delta Troponin T -0.87 L (0-10) ABS# Total Protein 7.8 Albumin 4.1 Globulin 3.7 Discharge Plan Discharge Patient Disposition: Home Clinical Impression: Chest pain, Coronary artery disease Condition: Stable Prescriptions: New isosorbide mononitrate 30 mg tablet extended release 24 hr 30 mg PO DAILY Qty: 30 RF: 0 No Action nitroglycerin [Nitrostat] 0.4 mg tablet, sublingual 0.4 mg SUBLINGUAL Q5M PRN (Reason: Chest Pain) RF: 0 albuterol sulfate [ProAir HFA] 90 mcg/actuation HFA aerosol inhaler 2 puff INHALATION Q6H PRN (Reason: Shortness Of Breath) RF: 0 digoxin 125 mcg (0.125 mg) tablet 125 mcg PO DAILY RF: 0 senna-docusate sodium Tablet 2 tab PO BID RF: 0 tamsulosin 0.4 mg capsule 0.4 mg PO DAILY RF: 0 hydromorphone [Dilaudid] 4 mg tablet 4 mg PO Q4H PRN (Reason: Pain) RF: 0 alprazolam 0.25 mg tablet 0.5 mg PO BID PRN (Reason: anxiety) RF: 0 furosemide 20 mg tablet 20 mg PO DAILY RF: 0 morphine 200 mg tablet extended release 400 mg PO BID PRN (Reason: pain) RF: 0 potassium chloride 10 mEq tablet,ER particles/crystals 10 meq PO BID RF: 0 warfarin 2 mg tablet 4 mg PO DIRECTED RF: 0 magnesium oxide 400 mg magnesium tablet 400 mg PO BID Qty: 180 RF: 3 warfarin 3 mg tablet 3 mg PO DAILY 30 Days Qty: 30 RF: 0 Discharge Orders: Discharge Order (Routine); Ordered 07/09/20 Ordered By: Wesley Bernal Referrals: Berta Ramos MD [Physician] - Discharge Diet: Usual diet Discharge Activity: Limit activity as instructed Coding Level of Care Code ED Biometric Technician for Chg Chayo
[2020-07-09 15:46] VITALS: BP 109/78; PULSE 109; RESP 18; O2SAT 94
== END 2020-07-09 15:50 | disposition home or self-care (01) ==
PROVIDERS: Emergency Provider Family Medicine; PCP Family Medicine
DX: R07.9 Chest pain, unspecified (principal); I25.10 Atherosclerotic heart disease of native coronary artery without angina pectoris; Z79.01 Long term (current) use of anticoagulants; I48.91 Unspecified atrial fibrillation; I11.0 Hypertensive heart disease with heart failure; I50.30 Unspecified diastolic (congestive) heart failure; Z86.73 Personal history of transient ischemic attack (TIA), and cerebral infarction without residual deficits; Z87.891 Personal history of nicotine dependence
CPT/HCPCS: 12345; 71045; 80053; 84484; 85025; 93005; 99282; 99283

== ENCOUNTER 2021-06-09 16:37 | Outpatient (CLI) | payer MEDICARE, MEDICAID, SELFPAY ==
[2021-06-09 17:26] LABS: Basophils % 0.5 %; Eosinophils # 0.3 10^3/uL (0.0-0.8); Eosinophils % 3.3 %; Hemoglobin 11.8 g/dL (11.7-16.6); Lymphocytes # 1.1 10^3/uL (0.8-4.8); Lymphocytes % 13.3 %; Mean Corpuscular HGB Conc 31.1 g/dL (30.0-36.0); Mean Corpuscular Hemoglobin 27.9 pg (28.0-34.0); Mean Corpuscular Volume 89.8 fl (80-94); Mean Platelet Volume 10.1 fL (7.4-10.4); Monocytes % 11.9 %; Neutrophils # 5.86 10^3/uL (1.8-7.7); Neutrophils % 70.5 %; Nucleated Red Blood Cells % 0 %; Platelet Count 245 10^3/cmm (130-400); Red Blood Count 4.23 10^6/uL (4.1-5.3); Red Cell Distribution Width 13.4 % (12.1-15.1); White Blood Count 8.3 10^3/uL (4.0-10.0)
== END 2021-06-09 16:38 | disposition home or self-care (01) ==
LOC: LAB 16:44
PROVIDERS: PCP Family Medicine; Visit Provider Family Medicine
DX: Z95.4 Presence of other heart-valve replacement (principal)
CPT/HCPCS: 85025

== ENCOUNTER → 2021-08-26 15:00 | Outpatient (BNVA) | payer MEDICARE, MEDICAID, SELFPAY | PROVIDERS: PCP Family Medicine; Visit Provider Internal Medicine Cardiovascular Disease | DX: I10 Essential (primary) hypertension (principal); R07.89 Other chest pain; I50.32 Chronic diastolic (congestive) heart failure; R06.02 Shortness of breath; I50.33 Acute on chronic diastolic (congestive) heart failure | CPT/HCPCS: 80048; 83880 ==

== ENCOUNTER → 2021-09-21 11:48 | Outpatient (BNVA) | payer MEDICARE, MEDICAID, SELFPAY | PROVIDERS: PCP Family Medicine; Visit Provider Internal Medicine Cardiovascular Disease | DX: E78.2 Mixed hyperlipidemia (principal); R06.02 Shortness of breath; R60.9 Edema, unspecified; E78.5 Hyperlipidemia, unspecified; I10 Essential (primary) hypertension; I50.30 Unspecified diastolic (congestive) heart failure | CPT/HCPCS: 80048; 83880 ==

== ENCOUNTER 2021-09-22 16:29 | Outpatient (CLI) | payer MEDICARE, MEDICAID, SELFPAY ==
[2021-09-22 16:55] LABS: INR 3.75 (0.8-1.2)
== END 2021-09-22 16:30 | disposition home or self-care (01) ==
PROVIDERS: PCP Family Medicine; Visit Provider Internal Medicine Cardiovascular Disease
DX: Z95.4 Presence of other heart-valve replacement (principal)
CPT/HCPCS: 85610

== ENCOUNTER → 2021-10-14 10:48 | Outpatient (BNVA) | payer MEDICARE, MEDICAID, SELFPAY | PROVIDERS: PCP Family Medicine; Visit Provider Internal Medicine Cardiovascular Disease | DX: Z79.01 Long term (current) use of anticoagulants (principal) ==

== ENCOUNTER → 2021-10-23 10:55 | Outpatient (BNVA) | payer MEDICARE, MEDICAID, SELFPAY | PROVIDERS: PCP Family Medicine; Visit Provider Internal Medicine Cardiovascular Disease | DX: Z79.01 Long term (current) use of anticoagulants (principal) ==

== ENCOUNTER → 2021-10-28 15:07 | Outpatient (BNVA) | payer MEDICARE, MEDICAID, SELFPAY | PROVIDERS: PCP Family Medicine; Visit Provider Internal Medicine Cardiovascular Disease | DX: Z79.01 Long term (current) use of anticoagulants (principal) ==

== ENCOUNTER → 2021-11-06 08:56 | Outpatient (BNVA) | payer MEDICARE, MEDICAID, SELFPAY | PROVIDERS: PCP Family Medicine; Visit Provider Internal Medicine Cardiovascular Disease | DX: Z79.01 Long term (current) use of anticoagulants (principal) ==

== ENCOUNTER → 2021-11-13 13:44 | Outpatient (BNVA) | payer MEDICARE, MEDICAID, SELFPAY | PROVIDERS: PCP Family Medicine; Visit Provider Internal Medicine Cardiovascular Disease | DX: I35.8 Other nonrheumatic aortic valve disorders (principal); Z79.01 Long term (current) use of anticoagulants ==

== ENCOUNTER → 2021-11-20 12:44 | Outpatient (BNVA) | payer MEDICARE, MEDICAID, SELFPAY | PROVIDERS: PCP Family Medicine; Visit Provider Internal Medicine Cardiovascular Disease | DX: Z79.01 Long term (current) use of anticoagulants (principal) ==

== ENCOUNTER → 2021-12-02 12:44 | Outpatient (BNVA) | payer MEDICARE, MEDICAID, SELFPAY | PROVIDERS: PCP Family Medicine; Visit Provider Internal Medicine Cardiovascular Disease | DX: Z79.01 Long term (current) use of anticoagulants (principal) ==

== ENCOUNTER → 2021-12-11 08:45 | Outpatient (BNVA) | payer MEDICARE, MEDICAID, SELFPAY | PROVIDERS: PCP Family Medicine; Visit Provider Internal Medicine Cardiovascular Disease | DX: Z79.01 Long term (current) use of anticoagulants (principal) ==

== ENCOUNTER → 2021-12-18 10:54 | Outpatient (BNVA) | payer MEDICARE, MEDICAID, SELFPAY | PROVIDERS: PCP Family Medicine; Visit Provider Internal Medicine Cardiovascular Disease | DX: Z79.01 Long term (current) use of anticoagulants (principal) ==

== ENCOUNTER → 2021-12-25 13:38 | Outpatient (BNVA) | payer MEDICARE, MEDICAID, SELFPAY | PROVIDERS: PCP Family Medicine; Visit Provider Internal Medicine Cardiovascular Disease | DX: Z79.01 Long term (current) use of anticoagulants (principal) ==

== ENCOUNTER → 2022-01-01 09:44 | Outpatient (BNVA) | payer MEDICARE, MEDICAID, SELFPAY | PROVIDERS: PCP Family Medicine; Visit Provider Internal Medicine Cardiovascular Disease | DX: Z79.01 Long term (current) use of anticoagulants (principal) ==

== ENCOUNTER → 2022-01-08 13:04 | Outpatient (BNVA) | payer MEDICARE, MEDICAID, SELFPAY | PROVIDERS: PCP Family Medicine; Visit Provider Internal Medicine Cardiovascular Disease | DX: Z79.01 Long term (current) use of anticoagulants (principal) ==

== ENCOUNTER → 2022-01-15 10:22 | Outpatient (BNVA) | payer MEDICARE, MEDICAID, SELFPAY | PROVIDERS: PCP Family Medicine; Visit Provider Internal Medicine Cardiovascular Disease | DX: Z79.01 Long term (current) use of anticoagulants (principal) ==

== ENCOUNTER → 2022-01-20 14:46 | Outpatient (BNVA) | payer MEDICARE, MEDICAID, SELFPAY | PROVIDERS: PCP Family Medicine; Visit Provider Internal Medicine Cardiovascular Disease | DX: Z79.01 Long term (current) use of anticoagulants (principal) ==

== ENCOUNTER → 2022-01-29 09:16 | Outpatient (BNVA) | payer MEDICARE, MEDICAID, SELFPAY | PROVIDERS: PCP Family Medicine; Visit Provider Internal Medicine Cardiovascular Disease | DX: Z79.01 Long term (current) use of anticoagulants (principal) ==

== ENCOUNTER → 2022-02-04 16:55 | Outpatient (BNVA) | payer MEDICARE, MEDICAID, SELFPAY | PROVIDERS: PCP Family Medicine; Visit Provider Internal Medicine Cardiovascular Disease | DX: Z79.01 Long term (current) use of anticoagulants (principal) ==

== ENCOUNTER → 2022-02-12 10:19 | Outpatient (BNVA) | payer MEDICARE, MEDICAID, SELFPAY | PROVIDERS: PCP Family Medicine; Visit Provider Internal Medicine Cardiovascular Disease | DX: Z79.01 Long term (current) use of anticoagulants (principal) ==

== ENCOUNTER → 2022-02-19 11:10 | Outpatient (BNVA) | payer MEDICARE, MEDICAID, SELFPAY | PROVIDERS: PCP Family Medicine; Visit Provider Internal Medicine Cardiovascular Disease | DX: Z79.01 Long term (current) use of anticoagulants (principal) ==

== ENCOUNTER → 2022-02-26 13:13 | Outpatient (BNVA) | payer MEDICARE, MEDICAID, SELFPAY | PROVIDERS: PCP Family Medicine; Visit Provider Internal Medicine Cardiovascular Disease | DX: Z79.01 Long term (current) use of anticoagulants (principal) ==

== ENCOUNTER → 2022-03-04 14:17 | Outpatient (BNVA) | payer MEDICARE, MEDICAID, SELFPAY | PROVIDERS: PCP Family Medicine; Visit Provider Internal Medicine Cardiovascular Disease | DX: Z79.01 Long term (current) use of anticoagulants (principal) ==

== ENCOUNTER → 2022-04-09 09:12 | Outpatient (BNVA) | payer MEDICARE, MEDICAID, SELFPAY | PROVIDERS: PCP Family Medicine; Visit Provider Family Medicine | DX: E78.5 Hyperlipidemia, unspecified (principal); I10 Essential (primary) hypertension; I50.30 Unspecified diastolic (congestive) heart failure | CPT/HCPCS: 80053; 80061; 83036; 84153; 85025 ==

== ENCOUNTER → 2022-05-31 15:31 | Outpatient (BNVA) | payer MEDICARE, MEDICAID, SELFPAY | PROVIDERS: PCP Family Medicine; Visit Provider Family Medicine | DX: I48.0 Paroxysmal atrial fibrillation (principal); R00.2 Palpitations; I10 Essential (primary) hypertension; R07.89 Other chest pain; G47.10 Hypersomnia, unspecified; R42 Dizziness and giddiness | CPT/HCPCS: 80162; 83735 ==

== ENCOUNTER 2022-06-04 09:10 | Emergency (ER) | payer MEDICARE, MEDICAID, SELFPAY ==
[2022-06-04 09:13] VITALS: BMI 32.6
--- NOTE | 2022-06-04 09:16 | ECG_ITS ---
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 Measurements Intervals [place] Rate: 81 P: 6 IA: 217 QRS: -12 QRSD: 158 T: 127 QT: 385 QTc: 449 Interpretive Statements SINUS RHYTHM WITH FIRST DEGREE AV BLOCK WITH OCCASIONAL ECTOPIC PREMATURE COMPLEXES LEFT BUNDLE BRANCH BLOCK [120+ ms QRS DURATION, 80+ ms Q/S IN V1/V2, 85+ ms R IN I/aVL/V5/V6] Compared to ECG 07/09/2020 12:34:52 Sinus tachycardia no longer present Electronically Signed On 06-04-2022 16:49:12 CDT by Berta Ramos M.D. [id number]
[2022-06-04 09:19] VITALS: BP 145/66; PULSE 85; RESP 20; TEMP 36.7; O2SAT 95
--- NOTE | 2022-06-04 09:19 | XR_ITS ---
WS: [id number] Portable AP upright chest, 06/04/2022 Clinical Data: chest pain Comparison: Portable chest, 07/09/2020 Findings: No nodules, masses or effusions are seen. The heart is normal. The pulmonary vascularity is not increased. No pneumonia or pneumothorax is seen. Midline sternotomy sutures are seen along with artificial cardiac valve. The aortic arch and descending thoracic aorta show tortuosity and calcifica tion. Monitor leads are on the chest wall. XR/XR chest 1V portable [id number] Impression: Atherosclerosis.
--- NOTE | 2022-06-04 09:36 | ED_ITS ---
HPI - Chest Pain General: Chief Complaint: Chest Pain Stated Complaint: Left sided chest pain, weakness Time Seen by Provider: 06/04/22 09:12 Source: patient Mode of arrival: EMS History of Present Illness: 71 yo male presents to the ER with complaints of chest pain. Patient has had chest pain for the last approximately 2 weeks it is responsive to nitroglycerin. Over the last 12 to 15 hours he has had 3 episodes each requiring 2 sublingual nitros. Gets relief of chest pain after 10 to 15 minutes. 2 years ago he had an or coronary angiogram done was essentially unremarkable. He states pain radiates into his neck and arm. MD complaint: chest pain Onset (ago): week(s) (2) Timing of current episode: episodic and now resolved Prior episodes: Yes Onset: during rest Pain location: left chest Pain radiation: left arm and left shoulder Severity: moderate Quality: tightness Relieving factors: nothing Exacerbating factors: nothing Associated symptoms: Deny abdominal pain, dyspnea, fever(s), nausea or vomiting Review of Systems Const: Denies: fever(s), chills, body aches, change in appetite, fatigue or malaise ENMT: Denies: throat pain, ear or mastoid pain, nasal discharge or nasal congestion Card: Denies: chest pain, edema, dyspnea on exertion or orthopnea Resp: Denies: dyspnea, productive cough or non-productive cough GI: Denies: abdominal pain, nausea, vomiting, hematemesis, coffee ground emesis, diarrhea, constipation, bloating, hematochezia or melena : Denies: flank pain, dysuria, urinary frequency or urinary urgency Skin/Breast: Denies: rash or pruritus PFSH ED PFSH: Medical History Anemia Anxiety Arthritis Atrial fibrillation This is not confirmed in his old records but patient believes this is the reason he is on digoxin when asked. BPH (benign prostatic hyperplasia) -on Flomax Chronic back pain Congestive heart failure Echocardiogram April 2020 demonstrated preserved ejection fraction, mechanical prosthetic valve aortic Coronary artery disease [facility] in 04/2020- mild CAD lesion circumflex GI bleed Hyperlipemia Hypertension -VSS; continue to monitor -continue oral antihypertensives NSTEMI (non-ST elevated myocardial infarction) Transient ischemic attack Surgical History Aortic valve replaced -Mechanical. On anticoagulation. -Subtherapeutic INRs will need bridging with therapeutic Lovenox for a few days History of amputation of left great toe History of hernia repair History of knee surgery Hx of appendectomy Previous back surgery Family History Mother Cancer Grandmother Cancer Family/Other Diabetes Other Congenital heart disease Denies family history of CAD (coronary artery disease) Clotting disorder Dementia Chronic kidney disease (CKD) Suicide Anesthesia complication Bleeding disorder Lung disease Stroke Social History Smoking and tobacco status: former smoker Alcohol intake: current Alcohol intake frequency: 0-2 Drinks per Day Alcohol type: beer Physical Exam Const: COMMON NORMALS: no acute distress GENERAL APPEARANCE: cooperative and comfortable ORIENTATION/CONSCIOUSNESS: Yes awake, Yes oriented to person, Yes oriented to place and Yes oriented to time HENMT: COMMON NORMALS: normocephalic, atraumatic, hearing grossly normal bilaterally, external ears normal, EAC's normal, TM's normal bilaterally, Normal nasal mucous membranes and turbinates present, moist oral mucous membranes and oropharynx normal HEAD & SCALP: normocephalic and atraumatic NOSE: Normal nasal mucous membranes and turbinates present EXTERNAL EAR: Yes external ears normal EXTERNAL AUDITORY CANAL: EAC's normal TYMPANIC MEMBRANE: TM's normal bilaterally Eye: COMMON NORMALS: Equal, round and reactive pupils present, EOMs intact bilaterally, conjunctivae normal and no scleral icterus CONJUNCTIVA: Yes conjunctivae normal PUPIL: Yes Equal, round and reactive pupils present Neck/C-Spine: COMMON NORMALS: full ROM, no lymphadenopathy, supple and no JVD Lymph: LYMPHATIC: no lymphadenopathy noted and no lymphedema noted Resp: COMMON NORMALS: normal respiratory effort, No retractions, No use of accessory muscles and clear to auscultation bilaterally AUSCULTATION: clear to auscultation bilaterally Cardio: COMMON NORMALS: no JVD, regular rate, regular rhythm and No murmurs present (Cardio) RATE: regular rate RHYTHM: regular rhythm GI: COMMON NORMALS: Soft to palpation and No hepatosplenomegaly present AUSCULTATION: Yes normoactive bowel sounds PALPATION: Yes Soft to palpation, No Tenderness to palpation present (GI), No Guarding due to palpation present (GI) and Yes No hepatosplenomegaly present Extremity: COMMON NORMALS: normal to inspection, capillary refill normal, no clubbing, cyanosis or edema, no calf tenderness and no pedal edema Neuro: SENSORIUM/ORIENTATION: Yes oriented to person, Yes oriented to place and Yes oriented to time Skin: COMMON NORMALS: no rashes or lesions noted GENERAL SKIN EXAM: no rashes or lesions noted Course Vital Signs: Vital signs: Vital Signs Temperature 98.0 F 06/04/22 09:19 Pulse Rate 79 06/04/22 14:01 Respiratory Rate 19 H 06/04/22 14:01 Blood Pressure 141/70 06/04/22 14:01 Pulse Oximetry 95 06/04/22 14:01 Oxygen Delivery Me thod 06/04/22 11:33 Oxygen Flow Rate 3 06/04/22 11:33 MDM - Chest Pain Medical Decision Making Patient's pain is atypical in nature. Has been getting little bit worse we looked at various things consult the hospitalist for considering admitting the patient ultimately decided because he had an angiogram 2 years ago ahead and discharge him home second troponin was increased but did not have a significant delta. Multiple potential causes of chest pain he does not appear to have an CO coronary spasm could be atypical from GI source. We will discharge ultimately we decided to discharge the patient home cardiology will manage his INR consult with him and gave directions [facility] Medical Records I reviewed the patient's medical records. Lab Data I reviewed the patient's lab results. : 06/04/22 09:25 06/04/22 09:25 Radiology Impressions Chest X-Ray 06/04/22 09:19 Impression: Atherosclerosis. Laboratory Results WBC 5.6 10^3/uL (4.0-10.0) 06/04/22 09:25 RBC 4.38 10^6/uL (4.1-5.3) 06/04/22 09:25 Hgb 12.6 g/dL (11.7-16.6) 06/04/22 09:25 Hct 38.9 % (42.0-52.0) L 06/04/22 09:25 MCV 88.8 fl (80-94) 06/04/22 09:25 MCH 28.8 pg (28.0-34.0) 06/04/22 09:25 MCHC 32.4 g/dL (30.0-36.0) 06/04/22 09:25 RDW 14.1 % (12.1-15.1) 06/04/22 09:25 Plt Count 226 10^3/cmm (130-400) 06/04/22 09:25 MPV 9.4 fL (7.4-10.4) 06/04/22 09:25 Neut % (Auto) 54.9 % 06/04/22 09:25 Lymph % (Auto) 20.0 % 06/04/22 09:25 [place] % (Auto) 15.6 % 06/04/22 09:25 Eos % (Auto) 7.5 % 06/04/22 09:25 Baso % (Auto) 1.1 % 06/04/22 09:25 Neut # (Auto) 3.07 10^3/uL (1.8-7.7) 06/04/22 09:25 Lymph # (Auto) 1.1 10^3/uL (0.8-4.8) 06/04/22 09:25 [place] # (Auto) 0.9 10^3/uL (0.2-0.9) 06/04/22 09:25 Eos # (Auto) 0.4 10^3/uL (0.0-0.8) 06/04/22 09:25 Baso # (Auto) 0.1 10^3/uL (0.0-0.1) 06/04/22 09:25 Nucleated RBC % (auto) 0 % 06/04/22 09:25 Nucleated RBCs # 0.0 /100WBC 06/04/22 09:25 PT 21.00 SECONDS (12.1-14.9) H 06/04/22 09:25 INR 1.78 (0.8-1.2) H 06/04/22 09:25 Sodium 132 mmol/L (136-145) L 06/04/22 09:25 Potassium 3.6 mmol/L (3.5-5.1) 06/04/22 09:25 Chloride 95 mmol/L (98-107) L 06/04/22 09:25 Carbon Dioxide 28 mmol/L (22-29) 06/04/22 09:25 Anion Gap 12.6 (5-19) 06/04/22 09:25 BUN 12 mg/dL (8-23) 06/04/22 09:25 Creatinine 0.7 mg/dL (0.7-1.2) 06/04/22 09:25 GFR Calculation Not Reportable 06/04/22 09:25 Glucose 105 mg/dL (65-115) 06/04/22 09:25 Calculated Osmolality 274 mOsm/kg (285-295) L 06/04/22 09:25 Calcium 8.7 mg/dL (8.5-10.5) 06/04/22 09:25 Total Bilirubin 0.5 mg/dL (0.15-1.2) 06/04/22 09:25 AST 24 U/L (0-40) 06/04/22 09:25 ALT 21 U/L (0-41) 06/04/22 09:25 Alkaline Phosphatase 116 U/L (40-130) 06/04/22 09:25 Troponin T Baseline 15 ng/L (0-15) 06/04/22 09:25 Troponin T 120 Minute 17.76 ng/L (0-15) H 06/04/22 11:51 Delta Troponin T 2.76 ABS# (0-10) 06/04/22 11:51 Total Protein 7.9 g/dL (6.6-8.7) 06/04/22 09:25 Albumin 3.3 g/dL (3.5-5.2) L 06/04/22 09:25 Globulin 4.6 g/dL (1.3-4.6) 06/04/22 09:25 Digoxin 0.5 ng/mL (0.6-1.2) L 06/04/22 09:25 Discharge Plan Discharge Patient Disposition: Home Clinical Impression: Atypical chest pain, Intermittent atrial fibrillation, Chronic anticoagulation, S/P AVR Condition: Stable Prescriptions: New isosorbide mononitrate 30 mg tablet extended release 24 hr 30 mg PO DAILY Qty: 30 0RF No Action digoxin 125 mcg (0.125 mg) tablet 125 mcg PO DAILY tamsulosin 0.4 mg capsule 0.4 mg PO DAILY hydromorphone [Dilaudid] 4 mg tablet 4 mg PO Q4H PRN (Reason: Pain) morphine 200 mg tablet extended release 200 mg PO Q12H PRN (Reason: pain) Rx Instructions: qam and qhs nitroglycerin [Nitrostat] 0.4 mg tablet, sublingual 0.4 mg SUBLINGUAL Q5M PRN (Reason: Chest Pain) Qty: 50 3RF morphine 100 mg tablet extended release 100 mg PO DAILY Rx Instructions: at 4pm lactulose 10 gram/15 mL solution 15 ml PO BID PRN (Reason: Constipation) ferrous sulfate [FeroSul] 325 mg (65 mg iron) tablet 1 ea PO DAILY alprazolam 0.5 mg tablet 0.5 mg PO BID PRN (Reason: Anxiety) sennosides [senna] 8.6 mg tablet 8.6 - 17.2 mg PO Q6H PRN (Reason: Constipation) ondansetron HCl 4 mg tablet 4 mg PO Q6H PRN (Reason: Nausea And Vomiting) metoprolol tartrate 25 mg tablet 25 mg PO DAILY PRN (Reason: blood pressure) Qty: 90 1RF magnesium oxide 400 mg magnesium tablet 400 mg PO BID Qty: 180 3RF atorvastatin 40 mg tablet 40 mg PO DAILY Qty: 90 3RF warfarin 3 mg tablet 3 mg PO DIRECTED Qty: 90 1RF Protocol: Dose Management Condition: Tuesday Dose/Route: 3 mg Instruction: 1 x 3 mg tablet Condition: Tuesday Dose/Route: 4 mg Instruction: 2 x 2 mg tablets Condition: Tuesday Dose/Route: 3 mg Instruction: 1 x 3 mg tablet Condition: Tuesday Dose/Route: 4 mg Instruction: 2 x 2 mg tablets Condition: Dose/Route: 3 mg Instruction: 1 x 3 mg tablet Condition: Tuesday Dose/Route: 4 mg Instruction: 2 x 2 mg tablets Condition: Tuesday Dose/Route: 3 mg Instruction: 1 x 3 mg tablet Protocol Text: Adjustment Start Date: 06/10/22 INR Value: 1.9 INR Date: 06/08/22 Recheck Date: 06/17/22 Rx Instructions: 3MG DAILY ON TUESDAY, TUESDAY, TUESDAY, TUESDAY AND TUESDAY furosemide 40 mg tablet 40 mg PO DAILY potassium chloride 20 mEq tablet,ER particles/crystals 20 meq PO DAILY warfarin 2 mg tablet 2 mg PO DIRECTED Protocol: Dose Management Condition: Tuesday Dose/Route: 3 mg Instruction: 1 x 3 mg tablet Condition: Tuesday Dose/Route: 4 mg Instruction: 2 x 2 mg tablets Condition: Tuesday Dose/Route: 3 mg Instruction: 1 x 3 mg tablet Condition: Tuesday Dose/Route: 4 mg Instruction: 2 x 2 mg tablets Condition: Dose/Route: 3 mg Instruction: 1 x 3 mg tablet Condition: Tuesday Dose/Route: 4 mg Instruction: 2 x 2 mg tablets Condition: Tuesday Dose/Route: 3 mg Instruction: 1 x 3 mg tablet Protocol Text: Adjustment Start Date: 06/10/22 INR Value: 1.9 INR Date: 06/08/22 Recheck Date: 06/17/22 Rx Instructions: ON TUESDAY AND TUESDAY Discharge Orders: Discharge ED (Routine); Ordered 06/04/22 Ordered By: Wesley Bernal Referrals: Jesus Nguyen MD [Primary Care Provider] - Discharge Diet: Usual diet Discharge Activity: Increase activity as tolerated Patient Instructions: Opioid Safety, Pain Management Activity Restrictions/Additional Instructions: Start isosorbide mononitrate once daily. You are given your first dose here in the emergency room. Take warfarin 4 mg on Tuesday 3 mg on all other days. You were given 4 mg today in the emergency room. You need to have a repeat INR done on Tuesday or Tuesday of next week. If you have worsening symptoms return to the emergency room. Coding Level of Care Code ED Chronometer Assembler And Adjuster for Adela Domingo
[2022-06-04 09:38] LABS: Basophils # 0.1 10^3/uL (0.0-0.1); Basophils % 1.1 %; Eosinophils # 0.4 10^3/uL (0.0-0.8); Eosinophils % 7.5 %; Hematocrit 38.9 % (42.0-52.0); Hemoglobin 12.6 g/dL (11.7-16.6); Lymphocytes # 1.1 10^3/uL (0.8-4.8); Mean Corpuscular HGB Conc 32.4 g/dL (30.0-36.0); Mean Corpuscular Hemoglobin 28.8 pg (28.0-34.0); Mean Corpuscular Volume 88.8 fl (80-94); Mean Platelet Volume 9.4 fL (7.4-10.4); Monocytes # 0.9 10^3/uL (0.2-0.9); Monocytes % 15.6 %; Neutrophils # 3.07 10^3/uL (1.8-7.7); Neutrophils % 54.9 %; Nucleated Red Blood Cells % 0 %; Platelet Count 226 10^3/cmm (130-400); Red Blood Count 4.38 10^6/uL (4.1-5.3); Red Cell Distribution Width 14.1 % (12.1-15.1); White Blood Count 5.6 10^3/uL (4.0-10.0)
[2022-06-04 10:01] LABS: Troponin(5th) Baseline 15 ng/L (0-15)
[2022-06-04 10:02] LABS: Alanine Aminotransferase 21 U/L (0-41); Albumin Level 3.3 g/dL (3.5-5.2); Alkaline Phosphatase 116 U/L (40-130); Aspartate Amino Transferase 24 U/L (0-40); Blood Urea Nitrogen 12 mg/dL (8-23); Calcium 8.7 mg/dL (8.5-10.5); Carbon Dioxide 28 mmol/L (22-29); Chloride 95 mmol/L (98-107); Globulin 4.6 g/dL (1.3-4.6); Glucose 105 mg/dL (65-115); Osmolality Calculated 274 mOsm/kg (285-295); Sodium 132 mmol/L (136-145); Total Bilirubin 0.5 mg/dL (0.15-1.2); Total Protein 7.9 g/dL (6.6-8.7)
[2022-06-04 10:08] LABS: Anion Gap 12.6 (5-19)
[2022-06-04 10:09] LABS: Potassium 3.6 mmol/L (3.5-5.1)
[2022-06-04 10:17] LABS: INR 1.78 (0.8-1.2)
[2022-06-04 10:19] VITALS: BP 151/79; PULSE 77; RESP 17; O2SAT 94
[2022-06-04 10:25] LABS: Digoxin 0.5 ng/mL (0.6-1.2)
[2022-06-04 10:49] VITALS: RESP 19
[2022-06-04] MEDS: morphine 4 mg/mL SDV 1 mL IVP (10:49)
[2022-06-04] MEDS: nitroglycerin 1 gm/inch oint Pkt 1 INCH TOPICAL (10:50)
[2022-06-04 10:54] VITALS: BP 131/73; PULSE 73; RESP 19; O2SAT 97
[2022-06-04 11:33] VITALS: BP 146/70; PULSE 82; O2SAT 96
--- NOTE | 2022-06-04 11:58 | ECG_ITS ---
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 Measurements Intervals [place] Rate: 67 P: 6 VA: 233 QRS: -19 QRSD: 153 T: 129 QT: 398 QTc: 423 Interpretive Statements SINUS RHYTHM WITH FIRST DEGREE AV BLOCK LEFT BUNDLE BRANCH BLOCK [120+ ms QRS DURATION, 80+ ms Q/S IN V1/V2, 85+ ms R IN I/aVL/V5/V6] Compared to ECG 06/04/2022 09:16:27 No significant changes Electronically Signed On 06-04-2022 16:53:34 CDT by Berta Ramos M.D. [email or web address]
[2022-06-04 12:20] LABS: Troponin 5 2HR 17.76 ng/L (0-15)
[2022-06-04 12:23] LABS: Troponin 5 2HR Delta 2.76 ABS# (0-10)
--- NOTE | 2022-06-04 12:40 | P.HP_ITS ---
Providers/Chief Complaint Admitting Physician: Harsh Allred MD Primary Care Provider: Jesus Nguyen MD Chief Complaint: Left sided chest pain, weakness History of Present Illness Andrea Hebert Sr is a 71 year old male who presents to the hospital with chest discomfort. He reports last night, around 7 PM he was emotionally upset with not being able to find his pain medication. He had significant left lower chest pressure, that did not seem to go away and he eventually took 2 nitroglycerin with improvement of the discomfort. This morning around 3 AM he awoke, and had some similar discomfort with radiation to his left arm he described as numb or tingly. This was associated with some nausea. With recurrent discomfort, more severe than usual he came into the emergency department. He reports he has occasional pain off and on in his chest. His most recent angiogram was 2 years ago, finding only 20% narrowing in his circumflex. His last episode of chest discomfort he took a nitroglycerin for was about a month ago, which he reports was minor in comparison to the discomfort he had last night and this morning. Illness, cough, fever. Reports his shortness of breath is chronic and no different than usual. Typically he uses 2 L continuously. Review of Systems General: Reports: 10 or more systems reviewed and unremarkable except in HPI and below Const: Denies: fever(s) or chills Eyes: Denies: change in vision ENMT: Denies: throat pain Card: Reports: chest pain; Denies: swelling of feet/ankles Resp: Reports: dyspnea; Denies: productive cough GI: Reports: nausea; Denies: abdominal pain, vomiting, hematochezia or melena : Denies: flank pain Musc: Denies: neck pain Skin/Breast: Denies: rash Neuro: Denies: headache(s) Psych: Denies: anxiety or depression Endo: Denies: polyuria Noel/Lymph: Denies: easy bruising All/Imm: Denies: urticaria Medications/Allergies Home Medications Medication Instructions Recorded Confirmed Last Taken Type digoxin 125 mcg (0.125 mg) tablet 125 mcg PO DAILY 08/30/19 06/04/22 06/03/22 History hydromorphone 4 mg tablet 4 mg PO Q4H PRN Pain 08/30/19 06/04/22 07/08/20 History (Dilaudid) tamsulosin 0.4 mg capsule 0.4 mg PO DAILY 08/30/19 06/04/22 06/03/22 History nitroglycerin 0.4 mg sublingual 0.4 mg sublingual Q5M PRN Chest 02/24/2105/1606/04/22 Rx tablet (Nitrostat) Pain #50 tabs metoprolol tartrate 25 mg tablet 25 mg PO DAILY PRN blood pressure 03/18/21 06/04/22 Unknown Rx #90 tabs magnesium oxide 400 mg PO BID #180 tabs 08/25/21 06/04/22 06/03/22 Rx atorvastatin 40 mg tablet 40 mg PO DAILY #90 tabs 11/10/21 06/04/22 06/03/22 Rx warfarin 3 mg tablet 3 mg PO DIRECTED #90 tabs 01/19/22 06/04/22 06/03/22 Rx morphine 100 mg tablet,extended 100 mg PO DAILY 03/04/22 06/04/22 06/03/22 History release morphine 200 mg tablet,extended 200 mg PO Q12H PRN pain 03/04/22 06/04/22 06/03/22 History release alprazolam 0.5 mg tablet 0.5 mg PO BID PRN Anxiety 05/05/22 06/04/22 06/03/22 History ferrous sulfate 325 mg (65 mg 1 ea PO DAILY 05/05/22 06/04/22 06/03/22 History iron) tablet (FeroSul) lactulose 10 gram/15 mL oral 15 ml PO BID PRN Constipation 05/05/22 06/04/22 Unknown History solution ondansetron HCl 4 mg tablet 4 mg PO Q6H PRN Nausea And Vomiting 05/05/22 2 Unknown History sennosides 8.6 mg tablet (senna) 8.6 - 17.2 mg PO Q6H PRN 05/05/22 06/04/22 Unkn own History Constipation furosemide 40 mg tablet 40 mg PO DAILY 06/04/22 06/04/22 06/03/22 History potassium chloride 20 mEq 20 meq PO DAILY 06/04/22 06/04/22 06/03/22 History tablet,extended release(part/cryst) warfarin 2 mg tablet 2 mg PO DIRECTED 06/04/22 06/04/22 05/31/22 History Allergies Allergy/AdvReac Type Severity Reaction Status Date / Time clindamycin Allergy Unknown Unknown Verified 06/04/22 10:36 butorphanol Allergy Unknown Verified 06/04/22 10:36 gabapentin Allergy ADR-Halluci Verified 06/04/22 10:36 nating methadone Allergy Unknown Verified 06/04/22 10:36 nalbuphine Allergy Unknown Verified 06/04/22 10:36 pentazocine Allergy Unknown Verified 06/04/22 10:36 PFSH Acute PFSH: Medical History (Updated 06/04/22 @ 12:54 by Harsh Allred MD) Anemia Anxiety Arthritis Atrial fibrillation This is not confirmed in his old records but patient believes this is the reason he is on digoxin when asked. BPH (benign prostatic hyperplasia) -on Flomax Chronic back pain Congestive heart failure Echocardiogram April 2020 demonstrated preserved ejection fraction, mechanical prosthetic valve aortic Coronary artery disease [facility] in 04/2020- mild CAD lesion circumflex GI bleed Hyperlipemia Hypertension -VSS; continue to monitor -continue oral antihypertensives NSTEMI (non-ST elevated myocardial infarction) Transient ischemic attack Surgical History Aortic valve replaced -Mechanical. On anticoagulation. -Subtherapeutic INRs will need bridging with therapeutic Lovenox for a few days History of amputation of left great toe History of hernia repair History of knee surgery Hx of appendectomy Previous back surgery Family History Mother Cancer Grandmother Cancer Family/Other Diabetes Other Congenital heart disease Denies family history of CAD (coronary artery disease) Clotting disorder Dementia Chronic kidney disease (CKD) Suicide Anesthesia complication Bleeding disorder Lung disease Stroke Social History Smoking and tobacco status: former smoker Alcohol intake: current Alcohol intake frequency: 0-2 Drinks per Day Alcohol type: beer Vitals/I&O/Wt Last Vital Signs Temp 98.0 F 06/04/22 09:19 Pulse 82 06/04/22 11:33 Resp 19 H 06/04/22 10:54 BP 146/70 06/04/22 11:33 Pulse Ox 96 06/04/22 11:33 O2 Del Method 06/04/22 11:33 O2 Flow Rate 3 06/04/22 11:33 Weight last 48 hrs Weight 97.522 kg Physical Exam Narrative: General exam white male, no distress, denying any chest discomfort currently HEENT: Atraumatic and normocephalic. Pupils equally round. Oropharynx clear. Neck supple no lymphadenopathy or thyromegaly Cardiovascular regular rate and rhythm, click noted, no murmur Lungs clear no wheezing or crackles Abdomen is soft, positive bowel sounds, obese. No obvious organomegaly exam is deferred Extremities trace edema bilaterally. No cyanosis or clubbing Skin no rash Neuro no focal deficits. Data : 06/04/22 09:25 06/04/22 09:25 Other Labs: Chest x-ray reviewed by me demonstrates no infiltrate, postoperative heart with sternal wires INR 1.78 LFTs normal Troponin 15 with repeat of 17.76 Albumin 3.3 Digoxin level 0.5 EKG demonstrates sinus rhythm, left bundle branch block. A&P Assessment and plan (1) Chest pain: With chest pain. He has some element of chronic chest discomfort, but reports this is more severe than usual. He has had an angiogram, 2 years ago which demonstrated only 20% circumflex disease. His second troponin is minimally elevated, though delta is not significant. . Causes of pain could be coronary spasm, musculoskeletal pain, esophageal discomfort, related to diastolic dysfunction although he is not in any overt/acute heart failure currently. Secondary to chronic nature of elevated blood pressure, recurrent chest discomfort, and long-acting nitrate. Consider adding low dose BBlocker to take consistently(currently has PRN) During patient evaluation ED has discussed with cardiology and [facility] patient can be safely discharged to home. I agree. Discontinue NTPaste here. Give first dose of Imdur. (2) S/P AVR: Mechanical prosthesis Try to keep INR 2.5-3.5 Discusssed with cardiology clinic, increase Coumadin to 4 mg MWF, 3 mg all others, recheck INR Tuesday. (3) Intermittent atrial fibrillation: Stable currently (4) Diastolic heart failure: Stable currently Qualifiers: Heart failure chronicity: chronic Qualified Code(s): I50.32 - Chronic diastolic (congestive) heart failure (5) Hypertension: Controlled Qualifiers: Hypertension type: essential hypertension Qualified Code(s): I10 - Essential (primary) hypertension Plan Other medical problems as listed in PMH Attestations Medical Necessity Statement*: Not applicable. Coding Level of Care Code Acute Sound Ranging Crewmember for Chg Fwd Diagnoses Chest pain R07.9 S/P AVR Z95.2 Intermittent atrial fibrillation I48.0 Diastolic heart failure I50.32 Heart failure chronicity: chronic Hypertension I10 Hypertension type: essential hypertension
[2022-06-04] MEDS: isosorbide mononitrate ER 30 mg Tablet PO (13:25)
[2022-06-04] MEDS: warfarin 4 mg Tablet PO (13:38)
[2022-06-04 14:01] VITALS: BP 141/70; PULSE 79; RESP 19; O2SAT 95
== END 2022-06-04 14:05 | disposition home or self-care (01) ==
PROVIDERS: Emergency Provider Family Medicine; PCP Family Medicine
DX: R07.89 Other chest pain (principal); I48.91 Unspecified atrial fibrillation; Z79.01 Long term (current) use of anticoagulants; Z87.891 Personal history of nicotine dependence; I11.0 Hypertensive heart disease with heart failure; I50.9 Heart failure, unspecified; E78.5 Hyperlipidemia, unspecified; I25.2 Old myocardial infarction; Z86.73 Personal history of transient ischemic attack (TIA), and cerebral infarction without residual deficits
CPT/HCPCS: 71045; 80053; 80162; 84484; 85025; 85610; 93005; 96374; 99285; J2270

== ENCOUNTER → 2022-09-30 14:29 | Outpatient (BNVA) | payer MEDICARE, MEDICAID, SELFPAY | PROVIDERS: PCP Family Medicine; Visit Provider Family Medicine | DX: R31.9 Hematuria, unspecified (principal); M79.674 Pain in right toe(s); Z00.00 Encounter for general adult medical examination without abnormal findings | CPT/HCPCS: 81000 ==

== ENCOUNTER 2022-10-06 12:35 | Outpatient (CLI) | payer MEDICARE, MEDICAID, SELFPAY ==
[2022-10-06 18:56] LABS: Prothrombin Time (Patient) 34.8 Seconds (12.0-15.1)
== END 2022-10-06 12:36 | disposition home or self-care (01) ==
PROVIDERS: PCP Family Medicine; Visit Provider Internal Medicine Cardiovascular Disease
DX: I48.91 Unspecified atrial fibrillation (principal)
CPT/HCPCS: 85610

== ENCOUNTER 2022-10-07 12:02 | Outpatient (CLI) | payer MEDICARE, MEDICAID, SELFPAY ==
--- NOTE | 2022-10-07 12:13 | XR_ITS ---
WS: [id number] Exam: XR foot RT 2V [id number] Date/Time of Exam: 10/07/2022 12:22 PM Reason For Exam: Staple in distal 2nd digit - Evaluate for residual FB No fracture or dislocation noted. No radiopaque soft tissue foreign bodies are visualized. Second thr ough the fourth hammertoes identified. DJD at the first MP joint. XR/XR foot RT 2V [id number] IMPRESSION: 1. No radiopaque foreign body. No fracture. 2. Second through the fourth hammertoes. Degenerative changes.
== END 2022-10-07 12:03 | disposition home or self-care (01) ==
LOC: RAD 12:06
PROVIDERS: PCP Family Medicine; Visit Provider Family Medicine
DX: M79.674 Pain in right toe(s) (principal); M20.41 Other hammer toe(s) (acquired), right foot
CPT/HCPCS: 73620

== ENCOUNTER → 2022-10-14 10:26 | Outpatient (BNVA) | payer MEDICARE, MEDICAID, SELFPAY | PROVIDERS: PCP Family Medicine; Visit Provider Nurse Practitioner Family | DX: I25.10 Atherosclerotic heart disease of native coronary artery without angina pectoris (principal); I11.0 Hypertensive heart disease with heart failure; I50.32 Chronic diastolic (congestive) heart failure; Z87.891 Personal history of nicotine dependence; Z79.01 Long term (current) use of anticoagulants; I48.91 Unspecified atrial fibrillation | CPT/HCPCS: 99214 ==

== ENCOUNTER → 2022-12-28 15:08 | Outpatient (BNVA) | payer MEDICARE, MEDICAID, SELFPAY | PROVIDERS: PCP Family Medicine; Visit Provider Family Medicine | DX: R30.0 Dysuria (principal); Z51.81 Encounter for therapeutic drug level monitoring; E83.42 Hypomagnesemia; G47.10 Hypersomnia, unspecified; Z11.59 Encounter for screening for other viral diseases | CPT/HCPCS: 80053; 83735; 85025; 86803; 87086 ==

== ENCOUNTER 2023-02-03 12:53 | Outpatient (CLI) | payer MEDICARE, MEDICAID, SELFPAY ==
--- NOTE | 2023-02-03 13:15 | US_ITS ---
WS: [id number] ULTRASOUND RENAL TECHNIQUE: Ultrasound examination of both kidneys. CLINICAL INFORMATION: Gross hematuria COMPARISON: None. FINDINGS: Technically difficult study due to body habitus. RIGHT: Right kidney is normal in size and appearance. Echogenicity: Normal. Cortical thickness: 1.4 cm; Normal. Hydronephrosis: None. Perinephric fluid: None. Right kidney measures: 9.4 cm x 4.5 cm x 5.9 cm. LEFT: Left kidney is normal in size and appearance. Echogenicity: Normal. Cortical thickness: 1.4 cm; Normal. Hydronephrosis: None. Perinephric fluid: None. Left kidney measures: 10.9 cm x 4.9 cm x 5.0 cm. Normal visualized aorta. Prevoid bladder volume 438 cc post void bladder volume 27 cc US/US renal BI with PV bladder IMPRESSION: Technically difficult study due to body habitus. 1. No hydronephrosis in either kidney. 2. Prevoid bladder volume 438 cc post void bladder volume 27 cc 3. No suspicious findings.
== END 2023-02-03 12:54 | disposition home or self-care (01) ==
LOC: RAD 12:57
PROVIDERS: PCP Family Medicine; Visit Provider Family Medicine
DX: R31.0 Gross hematuria (principal)
CPT/HCPCS: 76770; 76857

== ENCOUNTER → 2023-03-21 11:17 | Outpatient (BNVA) | payer MEDICARE, MEDICAID, SELFPAY | PROVIDERS: PCP Family Medicine; Visit Provider Surgery | DX: Z12.11 Encounter for screening for malignant neoplasm of colon (principal) | CPT/HCPCS: 99024; 99203 ==

== ENCOUNTER → 2023-05-25 13:45 | Outpatient (BNVA) | payer MEDICARE, MEDICAID, SELFPAY | PROVIDERS: PCP Family Medicine; Visit Provider Internal Medicine Cardiovascular Disease | DX: I48.0 Paroxysmal atrial fibrillation (principal); Z79.01 Long term (current) use of anticoagulants; I25.10 Atherosclerotic heart disease of native coronary artery without angina pectoris; I11.0 Hypertensive heart disease with heart failure; I50.32 Chronic diastolic (congestive) heart failure; E78.2 Mixed hyperlipidemia; Z95.2 Presence of prosthetic heart valve; Z86.73 Personal history of transient ischemic attack (TIA), and cerebral infarction without residual deficits; Z87.891 Personal history of nicotine dependence | CPT/HCPCS: 99214 ==

== ENCOUNTER 2023-06-03 12:44 | Outpatient (CLI) | payer MEDICARE, MEDICAID, SELFPAY ==
--- NOTE | 2023-06-03 13:00 | USCV_ITS ---
Andrea Hebert Age: 72 Gender: M : 1950 Exam Date: 06/03/2023 13:12 Ordering Phys: Berta Ramos MD ([email or web address]) Technologist: ISAIAH [place] [facility] [place]: CAD, CHF, Post AVR, AWAD BP: 132 / 70 HR: 57 Rhythm: Sinus Technical Quality: Adequate MEASUREMENTS (Male / Female) Normal Values 2D ECHO LV Diastolic Diameter PLAX 4.9 cm 4.2 - 5.9 / 3.9 - 5.3 cm LV Systolic Diameter PLAX 3.8 cm IVS Diastolic Thickness 1.2 cm 0.6 - 1.0 / 0.6 - 0.9 cm IVS Systolic Thickness 1.8 cm LVPW Diastolic Thickness 0.8 cm 0.6 - 1.0 / 0.6 - 0.9 cm LVPW Systolic Thickness 0.8 cm LVOT Diameter 2.0 cm LV Ejection Fraction 2D Teich 43.4 % LV Ejection Fraction MOD 2C 64.7 % LV Ejection Fraction 2C AL 64.3 % LA Diameter 3.3 cm LA Width 2.8 cm LA Height 5.6 cm RA Width 3.3 cm RA Height 5.0 cm Aorta at Sinotubular Diameter 3.3 cm IVC Diameter 1.0 cm M-MODE Aortic Annulus Diameter 3.5 cm LA Ao Ratio MM 0.9 MV E Point Septal Separation 0.5 cm DOPPLER AV Peak Velocity 205.7 cm/s LVOT Peak Velocity 104.0 cm/s AV Area Cont Eq vti 2.5 cm squared AV Area Cont Eq pk 1.6 cm squared MV Peak Velocity 173.0 cm/s MV Area PHT 5.1 cm squared Mitral E to A Ratio 0.6 MV E' Velocity 53.0 cm/s Mitral E to MV E' Ratio 18.2 Mitral E to LV E' Lateral Ratio 14.3 Mitral E to LV E' Septal Ratio 25.3 TR Peak Velocity 194.0 cm/s TR Peak Gradient 15.1 mmHg Right Atrial Pressure 5.0 mmHg Pulmonary Artery Systolic Pressu 20.1 mmHg PV Peak Velocity 83.0 cm/s RV Acceleration Time 0.1 s RV Ejection Time 0.3 s RV AcT/ET 0.4 FINDINGS Left Ventricle Normal left ventricular size and systolic function, EF 64 %. Grade I/IV diastolic dysfunction (abnormal relaxation filling pattern), normal to mildly elevated filling pressures. Right Ventricle The right ventricle is normal in size and function. Right Atrium The right atrium is normal in size. Left Atrium Mildly increased left atrial size. Mitral Valve Mild mitral annular calcification. Thickened mitral valve. Aortic Valve The bioprosthetic valve in the aortic position appears to be well-seated. Peak velocity across the aortic valve is 2.05 m/s. The aortic valve area was calculated to be 2.5 cm, Tricuspid Valve Mild tricuspid valve regurgitation. Pulmonic Valve Structurally normal pulmonic valve without significant stenosis. There is no pulmonic regurgitation. Pericardium No pericardial effusion. Aorta The aortic root measured 3.9 cm in diameter, at the level of the sinuses IVC The inferior vena cava appears normal. CONCLUSIONS Normal left ventricular size and systolic function, EF 64 %. Grade I/IV diastolic dysfunction (abnormal relaxation filling pattern), normal to mildly elevated filling pressures. Mildly increased left atrial size. The bioprosthetic valve in the aortic position appears to be well-seated. Peak velocity across the aortic valve is 2.05 m/s. The aortic valve area was calculated to be 2.5 cm,. Mild tricuspid valve regurgitation. Estimated pulmonary artery peak systolic pressure 20 mmHg There is no pericardial effusion. There are no intracardiac masses. Compared to the study from 04/19/2020, there may not be a significant change Dr Berta Ramos MD [facility] (Electronically Signed) Final Date: 03 June 2023 17:10 S
== END 2023-06-03 12:45 | disposition home or self-care (01) ==
LOC: RAD 12:45
PROVIDERS: PCP Family Medicine; Visit Provider Internal Medicine Cardiovascular Disease
DX: R06.09 Other forms of dyspnea (principal); I25.10 Atherosclerotic heart disease of native coronary artery without angina pectoris; I50.9 Heart failure, unspecified; Z95.2 Presence of prosthetic heart valve; I07.1 Rheumatic tricuspid insufficiency
CPT/HCPCS: 93306

== ENCOUNTER → 2023-07-25 15:52 | Outpatient (BNVA) | payer MEDICARE, MEDICAID, SELFPAY | PROVIDERS: PCP Family Medicine; Visit Provider Family Medicine | DX: R35.0 Frequency of micturition (principal); E11.9 Type 2 diabetes mellitus without complications; Z51.81 Encounter for therapeutic drug level monitoring | CPT/HCPCS: 80053; 83036; 84153; 85025 ==

== ENCOUNTER 2023-07-26 10:33 | Emergency (ER) | payer MEDICARE, MEDICAID, SELFPAY ==
[2023-07-26 10:35] VITALS: BP 138/76; PULSE 108; RESP 18; TEMP 36.7; O2SAT 93
--- NOTE | 2023-07-26 10:44 | XR_ITS ---
WS: [id number] Exam: XR hip RT 2-3V wo/w pel* [id number] Date/Time of Exam: 07/26/2023 10:44 AM Reason For Exam: fall; one view pelvis too please Comparison 02/04/2020. No fracture or dislocation noted. Mild degenerative change of the joint compartment. Normal soft tiss ues. The pelvis is intact as visualized. IMPRESSION: 1. Mild DJD. No fracture.
--- NOTE | 2023-07-26 10:45 | ED_ITS ---
HPI - Extremity Injury (Lower) 2 General: Chief Complaint: Extremity Injury, Lower Stated Complaint: Fall Time Seen by Provider: 07/26/23 10:35 Source: patient and EMS Mode of arrival: EMS Limitations: no limitations History of Present Illness: Patient is a nice 72 yo male who presents to the ED today via EMS for complaints of a fall. He states he woke up around 4am this morning and walked to the kitchen to get a drink from the refrigerator and pour himself a cup of coffee. He states he was ambulating with the help of his walker when he felt like he dozed back off to sleep and fell and landed on his right hip. He states he struck his back as well although this does not seem to be bothering him. Patient states he was able to get back into bed but states it was very difficult secondary to hip pain. MD complaint: hip injury Onset (ago): hour(s) Severity: moderate Relieving factors: immobilization Exacerbating factors: weight bearing, movement and palpation Context: fall Associated symptoms: Reports inability to bear weight Other symptoms: none Review of Systems 2 Const: Denies: fever(s), chills, body aches, fatigue or malaise Eyes: Denies: change in vision or blurry vision Card: Denies: chest pain, palpitations, irregular heart rhythm, lightheadedness, syncope or dyspnea on exertion Resp: Denies: dyspnea, productive cough or pain on inspiration GI: Denies: abdominal pain, nausea, vomiting, heartburn or diarrhea : Denies: difficulty urinating or dysuria Musc: Reports: joint pain (R hip pain) and limited range of motion; Denies: neck pain, back pain, extremity pain, extremity swelling, joint swelling, joint redness or joint warmth Skin/Breast: Denies: rash Neuro: Denies: headache(s), numbness in extremities, sensory changes, dizziness, confusion, Slurred speech present, difficulty communicating thoughts or seizure-like activity PFSH ED 2 PFSH: Medical History Hyperlipemia Coronary artery disease [facility] in 04/2020- mild CAD lesion circumflex NSTEMI (non-ST elevated myocardial infarction) Anxiety BPH (benign prostatic hyperplasia) -on Flomax Atrial fibrillation This is not confirmed in his old records but patient believes this is the reason he is on digoxin when asked. Congestive heart failure Echocardiogram April 2020 demonstrated preserved ejection fraction, mechanical prosthetic valve aortic Hypertension -VSS; continue to monitor -continue oral antihypertensives Transient ischemic attack Anemia GI bleed Chronic back pain Arthritis Surgical History History of amputation of left great toe Partial with reattachment surgically History of knee surgery History of hernia repair Previous back surgery Hx of appendectomy Aortic valve replaced -Mechanical. On anticoagulation. -Subtherapeutic INRs will need bridging with therapeutic Lovenox for a few days Family History Mother Cancer Grandmother Cancer Family/Other Diabetes Other Congenital heart disease Denies family history of CAD (coronary artery disease) Clotting disorder Dementia Chronic kidney disease (CKD) Suicide Anesthesia complication Bleeding disorder Lung disease Stroke Social History Smoking and tobacco/nicotine status: former use of tobacco/nicotine Alcohol intake: current Alcohol intake frequency: 0-2 Drinks per Day Alcohol type: beer Substance/Drug Use: never Physical Exam 2 Const: COMMON NORMALS: no acute distress, average body habitus, patient oriented x3, no limitations, healthy appearing, alert and well nourished O RIENTATION/CONSCIOUSNESS: Yes awake, Yes oriented to person, Yes oriented to place and Yes oriented to time HENMT: COMMON NORMALS: normocephalic and atraumatic HEAD & SCALP: normal to inspection, normocephalic and atraumatic FACE & SINUS: normal facial exam Eye: GENERAL EYE: appearance normal, both eyes and all related structures Neck/C-Spine: COMMON NORMALS: full ROM, no lymphadenopathy, supple and no meningeal signs Chest: COMMONS NORMALS: normal inspection of the chest Resp: COMMON NORMALS: normal respiratory effort and clear to auscultation bilaterally AUSCULTATION: clear to auscultation bilaterally Cardio: COMMON NORMALS: regular rate and regular rhythm RATE: regular rate RHYTHM: regular rhythm GI: COMMON NORMALS: Normal to inspection, nondistended, normoactive bowel sounds present, Soft to palpation, non-tender, No hepatosplenomegaly present and no masses PALPATION: Yes Soft to palpation and Yes No hepatosplenomegaly present : COMMON NORMALS: Yes no CVA tenderness BLADDER/KIDNEY EXAM: Yes no CVA tenderness Back/Pelvis: COMMON NORMALS: no CVA tenderness, thoracic and lumbar spine normal to inspection, no thoracic nor lumbar tenderness and thoraco-lumbar ROM normal Extremity: COMMON NORMALS: capillary refill normal, no joint enlargement, no calf tenderness and no pedal edema GENERAL: Yes normal exam except as noted RIGHT LOWER EXTREMITY: Yes hip joint Right hip: Yes inspection (no obvious shortening/rotation), Yes ROM (limited ROM secondary to pain) and Yes neurovascular exam (normal) Neuro: GABRIELLA COMA SCALE: document GCS findings [place] coma scale eye opening: Spontaneous [place] coma scale verbal response: Orientated [place] coma scale motor response: Obey commands Gabriella coma scale total score: 15 COMMON NORMALS: patient oriented x3, moves all extremities, no focal motor deficits and no sensory deficits noted SENSORIUM/ORIENTATION: Yes alert, Yes oriented to person, Yes oriented to place and Yes oriented to time MENINGEAL SIGNS: Yes no meningeal signs Skin: COMMON NORMALS: no rashes or lesions noted GENERAL SKIN EXAM: no rashes or lesions noted Course 2 Vital Signs: Vital signs: Vital Signs Temperature 98.1 F 07/26/23 10:35 Pulse Rate 108 H 07/26/23 10:35 Respiratory Rate 18 07/26/23 10:35 Blood Pressure 138/76 07/26/23 10:35 Pulse Oximetry 93 07/26/23 10:35 Oxygen Delivery Me thod Room Air 07/26/23 10:35 MDM - Extremity Injury (Lower) Medical Decision Making Patient is a very nice 72-year-old male here following a fall. His only physical complaint at time of arrival was right hip pain. Patient was very tender on exam. Initial plain films did not show any fracture. I did want to rule out occult fracture based on his history/exam thus CT scan was ordered. CT scan does not show any acute fracture however he does have a large intramuscular hematoma measuring approximately 6 x 9cm most likely responsible for his pain. Patient was given pain medications here and was able to ambulate easily with the help of his walker. He chronically takes dilaudid and morphine at home so he can continue these medications. Blood work overall is unremarkable. Slightly elevated baseline troponin however this has been elevated multiple times in the past. He has no complaints of chest pain. His baseline and repeat EKGs are nonischemic. Recommend he follow-up with primary care in the next week or so for follow-up. Return precautions given. Lab Data 07/26/23 11:11 07/26/23 11:11 Laboratory Results WBC 5.82 10^3/uL (3.29-11.43) 07/26/23 11:11 RBC 4.33 10^6/uL (3.85-5.65) 07/26/23 11:11 Hgb 12.60 g/dL (11.27-16.99) 07/26/23 11:11 Hct 37.8 % (37-53) 07/26/23 11:11 MCV 87.3 fl (82-101) 07/26/23 11:11 MCH 29.1 pg (27-33) 07/26/23 11:11 MCHC 33.3 g/dL (30-55) 07/26/23 11:11 RDW 12.7 % (12.1-15.1) 07/26/23 11:11 Plt Count 193 10^3/cmm (157-399) 07/26/23 11:11 MPV 8.9 fL (7.4-10.4) 07/26/23 11:11 Neut % (Auto) 75.2 % 07/26/23 11:11 Lymph % (Auto) 10.5 % 07/26/23 11:11 Ritchie % (Auto) 10.5 % 07/26/23 11:11 Eos % (Auto) 2.4 % 07/26/23 11:11 Baso % (Auto) 0.7 % 07/26/23 11:11 Neut # (Auto) 4.38 10^3/uL (1.8-7.7) 07/26/23 11:11 Lymph # (Auto) 0.6 10^3/uL (0.8-4.8) L 07/26/23 11:11 Ritchie # (Auto) 0.6 10^3/uL (0.2-0.9) 07/26/23 11:11 Eos # (Auto) 0.1 10^3/uL (0.0-0.8) 07/26/23 11:11 Baso # (Auto) 0.0 10^3/uL (0.0-0.1) 07/26/23 11:11 Nucleated RBC % (auto) 0 % 07/26/23 11:11 Nucleated RBCs # 0.0 /100WBC 07/26/23 11:11 PT 16.60 SECONDS (12.1-14.9) H 07/26/23 11:11 INR 1.30 (0.8-1.2) H 07/26/23 11:11 Sodium 135 mmol/L (136-145) L 07/26/23 11:11 Potassium 4.1 mmol/L (3.5-5.1) 07/26/23 11:11 Chloride 96 mmol/L (98-107) L 07/26/23 11:11 Carbon Dioxide 28 mmol/L (22-29) 07/26/23 11:11 Anion Gap 15.1 (5-19) 07/26/23 11:11 BUN 17 mg/dL (8-23) 07/26/23 11:11 Creatinine 0.8 mg/dL (0.7-1.2) 07/26/23 11:11 GFR Calculation Not Reportable 07/26/23 11:11 Glucose 187 mg/dL (65-115) H 07/26/23 11:11 Calculated Osmolality 286 mOsm/kg (285-295) 07/26/23 11:11 Calcium 9.1 mg/dL (8.5-10.5) 07/26/23 11:11 Total Bilirubin 0.8 mg/dL (0.15-1.2) 07/26/23 11:11 AST 28 U/L (0-40) 07/26/23 11:11 ALT 23 U/L (0-41) 07/26/23 11:11 Alkaline Phosphatase 104 U/L (40-130) 07/26/23 11:11 Troponin T Baseline 20 ng/L (0-15) H 07/26/23 11:11 Total Protein 7.2 g/dL (6.6-8.7) 07/26/23 11:11 Albumin 3.7 g/dL (3.5-5.2) 07/26/23 11:11 Globulin 3.5 g/dL (1.3-4.6) 07/26/23 11:11 Urine Color Yellow (Yellow) 07/26/23 12:46 Urine Appearance Clear (CLEAR) 07/26/23 12:46 Urine pH 7 (5-7) 07/26/23 12:46 Ur Specific [place] 1.005 (1.005-1.030) 07/26/23 12:46 Urine Protein Neg (Negative) 07/26/23 12:46 Urine Glucose (UA) Norm (Normal) 07/26/23 12:46 Urine Ketones Negative (Negative) 07/26/23 12:46 Urine Blood Neg (Negative) 07/26/23 12:46 Urine Nitrate Negative (Negative) 07/26/23 12:46 Urine Bilirubin Neg (Negative) 07/26/23 12:46 Urine Urobilinogen Norm mg/dL (Negative) 07/26/23 12:46 Ur Leukocyte Esterase Negative (Negative) 07/26/23 12:46 Digoxin 0.5 ng/mL (0.6-1.2) L 07/26/23 11:11 All radiology interpretation(s) finalized by discharge Discharge Plan Discharge Patient Disposition: Home Clinical Impression: Contusion of right hip Qualifiers: Encounter type: initial encounter Qualified Code(s): S70.01XA - Contusion of right hip, initial encounter Hematoma of right hip Qualifiers: Encounter type: initial encounter Qualified Code(s): S70.01XA - Contusion of right hip, initial encounter Fall Qualifiers: Encounter type: initial encounter Qualified Code(s): W19.XXXA - Unspecified fall, initial encounter Condition: Stable Prescriptions: No Action hydromorphone [Dilaudid] 4 mg tablet 4 mg PO Q4H PRN (Reason: BREATH THROUGH PAIN) morphine 200 mg tablet extended release 200 mg PO Q12H Rx Instructions: qam and qhs nitroglycerin [Nitrostat] 0.4 mg tablet, sublingual 0.4 mg SUBLINGUAL Q5M PRN (Reason: Chest Pain) Qty: 50 3RF lactulose 10 gram/15 mL solution 15 ml PO BID PRN (Reason: Constipation) (DME) Walker with 4 wheels and a seat See Rx Instructions .Route .MEDSUPPLY Qty: 1 0RF Rx Instructions: As directed albuterol sulfate [ProAir HFA] 90 mcg/actuation HFA aerosol inhaler 2 puff inhalation Q6H PRN (Reason: shortness of breath or wheezing) Qty: 8.5 6RF atorvastatin 40 mg tablet 40 mg PO DAILY Qty: 90 3RF alprazolam 0.5 mg tablet 0.5 mg PO BID PRN (Reason: anxiety) Qty: 60 3RF sennosides [senna] 8.6 mg tablet See Rx Instructions .ROUTE .COMPLEX Qty: 60 8RF Dose Instruction: TAKE 1 TO 2 TABLETS BY MOUTH EVERY 6 HOURS NEEDED FOR CONSTIPATION Rx Instructions: TAKE 1 TO 2 TABLETS BY MOUTH EVERY 6 HOURS NEEDED FOR CONSTIPATION ondansetron HCl 4 mg tablet 4 mg PO Q6H PRN (Reason: Nausea And Vomiting) warfarin 4 mg tablet 4 mg PO QPM Protocol: Dose Management Condition: Tuesday Dose/Route: 4 mg Instruction: 1 x 4 mg tablet Condition: Tuesday Dose/Route: 4 mg Instruction: 1 x 4 mg tablet Condition: Tuesday Dose/Route: 4 mg Instruction: 1 x 4 mg tablet Condition: Tuesday Dose/Route: 4 mg Instruction: 1 x 4 mg tablet Condition: Dose/Route: 4 mg Instruction: 1 x 4 mg tablet Condition: Tuesday Dose/Route: 4 mg Instruction: 1 x 4 mg tablet Condition: Tuesday Dose/Route: 4 mg Instruction: 1 x 4 mg tablet Protocol Text: Adjustment Start Date: Tuesday07/26/23 INR Value: 1.7 INR Date: 07/25/23 Recheck Date: 08/02/23 potassium chloride 20 mEq tablet,ER particles/crystals 20 meq PO DAILY magnesium oxide 400 mg (241.3 mg magnesium) tablet 400 mg PO BID tamsulosin 0.4 mg capsule 0.4 mg PO QPM FeroSul 325 mg (65 mg iron) tablet 325 mg PO BID digoxin 125 mcg (0.125 mg) tablet 0.125 mg PO QAM metoprolol tartrate 25 mg tablet 25 mg PO DAILY PRN (Reason: blood pressure) Discharge Orders: Discharge ED (Routine); Ordered 07/26/23 Ordered By: Danika Franco Referrals: Jesus Nguyen MD [Primary Care Provider] - Patient Instructions: Hematoma (ED), Hip Contusion (ED) Coding Level of Care Code ED Dredge Pump Operator for Adela Domingo
[2023-07-26 11:00] VITALS: BP 138/76; PULSE 87; O2SAT 97
--- NOTE | 2023-07-26 11:02 | XR_ITS ---
WS: [id number] Exam: XR chest 1V portable [id number] Date/Time of Exam: 07/26/2023 11:05 AM Reason For Exam: fall Comparison 06/04/2022. The lungs are clear and hyperinflated. Heart size top limits normal. Signs of cardiac valve replaceme nt and median sternotomy. Regional bony elements are intact. IMPRESSION: 1. No acute cardiopulmonary finding.
--- NOTE | 2023-07-26 11:02 | ECG_ITS ---
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 Measurements Intervals [place] Rate: 71 P: -3 MS: 236 QRS: -31 QRSD: 154 T: 124 QT: 396 QTc: 432 Interpretive Statements SINUS RHYTHM WITH FIRST DEGREE AV BLOCK LEFT AXIS DEVIATION [QRS AXIS < -30] LEFT BUNDLE BRANCH BLOCK [120+ ms QRS DURATION, 80+ ms Q/S IN V1/V2, 85+ ms R IN I/aVL/V5/V6] Compared to ECG 06/04/2022 11:58:52 Left-axis deviation now present Electronically Signed On 07-26-2023 11:53:01 EYEGLASS MAKER by Kristian Rios M.D. [id number]
[2023-07-26] MEDS: morphine 4 mg/mL SDV 1 mL IM (11:04)
--- NOTE | 2023-07-26 11:04 | CT_ITS ---
WS: [id number] NONCONTRAST CT RIGHT HIP TECHNIQUE: Noncontrast CT RIGHT hip with coronal and sagittal reformatted images. CLINICAL INFORMATION: fall/pain/inability to ambulate COMPARISON: None. DLP: 443.[address] scans at [facility] use at least one of these dose optimization techniques: automated e xposure control; mA and/or kV adjustment per patient size (includes targeted exams where dose is matc hed to clinical indication); or iterative reconstruction. FINDINGS: Moderate degenerative arthritis RIGHT hip with joint space narrowing. Normal anatomic alignment. No a cute fractures. Normal RIGHT femoral head and neck. Visualized proximal femur appears normal. Degener ative arthritis RIGHT SI joint. Visualized RIGHT pubic rami appear intact. Soft tissue and intramuscular edema and hematoma about the RIGHT hip posteriorly greatest about the g reater trochanter. Suspected hematoma measures 9.3 x 6.2 cm. Mild sigmoid constipation. IMPRESSION: 1. No acute fractures. 2. Soft tissue and intramuscular edema with increased attenuation likely presents hematoma measuring 6.2 x 9.3 cm posteriorly in the gluteus musculature and about the greater trochanter. This is likely posttraumatic. Recommend correlation for recent fall and exclusion of infectious symptoms. 3. No significant joint effusion. Moderate degenerative narrowing RIGHT hip. 4. No other acute findings.
[2023-07-26 11:19] LABS: Basophils % 0.7 %; Eosinophils # 0.1 10^3/uL (0.0-0.8); Eosinophils % 2.4 %; Hematocrit 37.8 % (37-53); Lymphocytes # 0.6 10^3/uL (0.8-4.8); Lymphocytes % 10.5 %; Mean Corpuscular HGB Conc 33.3 g/dL (30-55); Mean Corpuscular Hemoglobin 29.1 pg (27-33); Mean Corpuscular Volume 87.3 fl (82-101); Mean Platelet Volume 8.9 fL (7.4-10.4); Monocytes # 0.6 10^3/uL (0.2-0.9); Monocytes % 10.5 %; Neutrophils # 4.38 10^3/uL (1.8-7.7); Neutrophils % 75.2 %; Nucleated Red Blood Cells % 0 %; Platelet Count 193 10^3/cmm (157-399); Red Blood Count 4.33 10^6/uL (3.85-5.65); Red Cell Distribution Width 12.7 % (12.1-15.1); White Blood Count 5.82 10^3/uL (3.29-11.43)
[2023-07-26 11:39] LABS: Digoxin 0.5 ng/mL (0.6-1.2)
[2023-07-26 11:41] LABS: Troponin(5th) Baseline 20 ng/L (0-15)
[2023-07-26 11:59] LABS: Alanine Aminotransferase 23 U/L (0-41); Albumin Level 3.7 g/dL (3.5-5.2); Alkaline Phosphatase 104 U/L (40-130); Anion Gap 15.1 (5-19); Aspartate Amino Transferase 28 U/L (0-40); Blood Urea Nitrogen 17 mg/dL (8-23); Calcium 9.1 mg/dL (8.5-10.5); Carbon Dioxide 28 mmol/L (22-29); Chloride 96 mmol/L (98-107); Globulin 3.5 g/dL (1.3-4.6); Glucose 187 mg/dL (65-115); Osmolality Calculated 286 mOsm/kg (285-295); Potassium 4.1 mmol/L (3.5-5.1); Sodium 135 mmol/L (136-145); Total Bilirubin 0.8 mg/dL (0.15-1.2); Total Protein 7.2 g/dL (6.6-8.7)
[2023-07-26 12:40] VITALS: BP 117/78; PULSE 69; O2SAT 94
[2023-07-26] MEDS: HYDROmorphone 1 mg/mL INJ 1 mL IM (12:46)
[2023-07-26 12:51] LABS: Add Urine Microscopic? NO; Charge for UA Resulting for Rev
[2023-07-26 12:56] LABS: Bilirubin Urine Neg (Negative); Blood Urine Neg (Negative); Glucose Urine UA Norm (Normal); Ketones Urine Negative (Negative); Leukocyte Esterase Urine Negative (Negative); Nitrate Urine Negative (Negative); Protein Urine Neg (Negative); Specific Gravity, Urine 1.005 (1.005-1.030); Urine Appearance Clear (CLEAR); Urine Color Yellow (Yellow); Urobilinogen Urine Norm (Negative); pH Urine 7 (5-7)
--- NOTE | 2023-07-26 13:02 | ECG_ITS ---
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 Measurements Intervals [place] Rate: 71 P: 0 IL: 235 QRS: -27 QRSD: 149 T: 122 QT: 391 QTc: 425 Interpretive Statements SINUS RHYTHM WITH FIRST DEGREE AV BLOCK LEFT BUNDLE BRANCH BLOCK [120+ ms QRS DURATION, 80+ ms Q/S IN V1/V2, 85+ ms R IN I/aVL/V5/V6] Compared to ECG 07/26/2023 11:43:41 Left-axis deviation no longer present Electronically Signed On 07-26-2023 13:53:42 NATURE PHOTOGRAPHER by Kristian Rios M.D. [id number]
== END 2023-07-26 13:40 | disposition home or self-care (01) ==
PROVIDERS: Emergency Provider Physician Assistant; PCP Family Medicine
DX: S70.01XA Contusion of right hip, initial encounter (principal); Z79.01 Long term (current) use of anticoagulants; Z87.891 Personal history of nicotine dependence; E78.5 Hyperlipidemia, unspecified; I25.10 Atherosclerotic heart disease of native coronary artery without angina pectoris; I25.2 Old myocardial infarction; I11.0 Hypertensive heart disease with heart failure; I50.9 Heart failure, unspecified; Z86.73 Personal history of transient ischemic attack (TIA), and cerebral infarction without residual deficits; W18.39XA Other fall on same level, initial encounter; Y92.000 Kitchen of unspecified non-institutional (private) residence as the place of occurrence of the external cause
CPT/HCPCS: 36415; 71045; 73502; 73700; 80053; 80162; 81003; 84484; 85025; 85610; 93005; 96372; 99285; J1170; J2270

== ENCOUNTER → 2023-12-09 13:37 | Outpatient (BNVA) | payer MEDICARE, MEDICAID, SELFPAY | PROVIDERS: PCP Family Medicine; Visit Provider Family Medicine | DX: Z13.220 Encounter for screening for lipoid disorders (principal); R10.2 Pelvic and perineal pain; M25.50 Pain in unspecified joint; E78.5 Hyperlipidemia, unspecified; Z51.81 Encounter for therapeutic drug level monitoring; E11.9 Type 2 diabetes mellitus without complications | CPT/HCPCS: 81000; 87086 ==

== ENCOUNTER → 2023-12-14 14:05 | Outpatient (BNVA) | payer MEDICARE, MEDICAID, SELFPAY | PROVIDERS: PCP Family Medicine; Visit Provider Internal Medicine Cardiovascular Disease | DX: I11.0 Hypertensive heart disease with heart failure (principal); I50.32 Chronic diastolic (congestive) heart failure; I48.0 Paroxysmal atrial fibrillation; Z95.2 Presence of prosthetic heart valve; E78.2 Mixed hyperlipidemia; I25.10 Atherosclerotic heart disease of native coronary artery without angina pectoris; Z79.01 Long term (current) use of anticoagulants; Z87.891 Personal history of nicotine dependence | CPT/HCPCS: 99214 ==

== ENCOUNTER → 2023-12-27 11:34 | Outpatient (BNVA) | payer MEDICARE, MEDICAID, SELFPAY | PROVIDERS: PCP Family Medicine; Visit Provider Family Medicine | DX: Z51.81 Encounter for therapeutic drug level monitoring (principal); M25.50 Pain in unspecified joint; E78.5 Hyperlipidemia, unspecified; Z13.220 Encounter for screening for lipoid disorders; M25.531 Pain in right wrist; E11.9 Type 2 diabetes mellitus without complications | CPT/HCPCS: 80053; 80061; 83036; 85025; 86141; 86431 ==

== ENCOUNTER 2023-12-28 14:14 | Outpatient (CLI) | payer MEDICARE, MEDICAID, SELFPAY ==
--- NOTE | 2023-12-28 14:52 | XRR_ITS ---
PROCEDURE INFORMATION: Exam: XR Right Wrist Exam date and time: 12/28/2023 2:55 PM Age: 73 years old Clinical indication: Pain; Wrist; Right; Additional info: Right wrist pain TECHNIQUE: Imaging protocol: Radiologic exam of the right wrist. Views: 3 or more views. COMPARISON: No relevant prior studies available. FINDINGS: Bones/joints: Chondrocalcinosis is noted throughout the radiocarpal joint space. No fracture noted. Soft tissues: Normal. XR/XR wrist RT min 3V* [id number] IMPRESSION: Mild arthritic changes
--- NOTE | 2023-12-28 14:58 | XRR_ITS ---
PROCEDURE INFORMATION: Exam: XR Right Hand Exam date and time: 12/28/2023 3:04 PM Age: 73 years old Clinical indication: Pain; Hand; Right; Additional info: Right finger pain TECHNIQUE: Imaging protocol: Radiologic exam of the right hand. Views: 3 or more views. COMPARISON: CR XR wrist RT min 3V* [id number] 12/28/2023 2:55 PM FINDINGS: Bones/joints: Severe arthritic change involves the 2nd D IP joint. Mild arthritic change involves all of the other IP joints. No fracture noted. Soft tissues: Normal. XR/XR hand RT min 3V* [id number] IMPRESSION: Arthritic changes
== END 2023-12-28 14:15 | disposition home or self-care (01) ==
LOC: RAD 14:15
PROVIDERS: PCP Family Medicine; Visit Provider Family Medicine
DX: M25.531 Pain in right wrist (principal); M19.031 Primary osteoarthritis, right wrist
CPT/HCPCS: 73110; 73130

== ENCOUNTER → 2024-01-03 09:10 | Outpatient (BNVA) | payer MEDICARE, MEDICAID, SELFPAY | PROVIDERS: PCP Family Medicine; Visit Provider Family Medicine | DX: N39.0 Urinary tract infection, site not specified (principal) | CPT/HCPCS: 81000; 87086 ==

== ENCOUNTER 2024-02-26 10:36 | Emergency (ER) | payer MEDICARE, MEDICAID, SELFPAY ==
[2024-02-26 10:40] VITALS: BP 147/68; PULSE 102; TEMP 36.9; O2SAT 95; BMI 36.5
--- NOTE | 2024-02-26 10:48 | XRR_ITS ---
PROCEDURE INFORMATION: Exam: XR Cervical Spine Exam date and time: 02/26/2024 11:38 AM Age: 73 years old Clinical indication: Cervicalgia; Patient HX: Neck/bilateral posterior shoulder pain; Numbness in bilateral hands; No known injury TECHNIQUE: Imaging protocol: Radiologic exam of the cervical spine. Views: 2 or 3 views. COMPARISON: CR XR cervical spine min 6V [id number] 03/08/2018 9:40 AM FINDINGS: Bones/joints: Multilevel intervertebral disc space narrowing consistent with moderate osteoarthritis. No acute fracture. Normal alignment. There is evidence of sternotomy Soft tissues: Unremarkable. XR/XR cervical spine 3V* [id number] IMPRESSION: 1. No acute findings. 2. Moderate osteoarthritis 3. Status post sternotomy
[2024-02-26] MEDS: dexamethasone 10 mg/mL INJ IM (10:56)
[2024-02-26] MEDS: methocarbamol 750 mg Tablet 1500 MG PO (10:56)
[2024-02-26] MEDS: morphine 4 mg/mL SDV 1 mL IM (10:56)
--- NOTE | 2024-02-26 10:59 | W.ED.NECK ---
HPI - Neck Pain/Injury General: Chief Complaint: Neck Pain/Injury Stated Complaint: NECK AND BACK PAIN Time Seen by Provider: 02/26/24 10:37 Source: patient and EMS Mode of arrival: EMS Limitations: no limitations History of Present Illness: 73-year-old male states that he has been having bilateral neck and shoulder pain for the last 2 to 3 days. States it hurts to move his head also hurts to lift his arms. Denies any specific injuries. He denies any fevers or headaches. Associated symptoms: Denies headache(s) or nausea Review of Systems Const: Denies: fever(s), chills, body aches or change in appetite ENMT: Denies: throat pain or dental pain Card: Denies: chest pain Resp: Denies: dyspnea GI: Denies: abdominal pain, nausea, vomiting or diarrhea Musc: Reports: extremity pain; Denies: neck pain or back pain Skin/Breast: Denies: rash Neuro: Denies: headache(s) PFSH ED PFSH: Medical History Hyperlipemia Coronary artery disease [facility] in 04/2020- mild CAD lesion circumflex NSTEMI (non-ST elevated myocardial infarction) Anxiety BPH (benign prostatic hyperplasia) -on Flomax Atrial fibrillation This is not confirmed in his old records but patient believes this is the reason he is on digoxin when asked. Congestive heart failure Echocardiogram April 2020 demonstrated preserved ejection fraction, mechanical prosthetic valve aortic Hypertension -VSS; continue to monitor -continue oral antihypertensives Transient ischemic attack Anemia GI bleed Chronic back pain Arthritis Surgical History History of amputation of left great toe Partial with reattachment surgically History of knee surgery History of hernia repair Previous back surgery Hx of appendectomy Aortic valve replaced -Mechanical. On anticoagulation. -Subtherapeutic INRs will need bridging with therapeutic Lovenox for a few days Family History Mother Cancer Grandmother Cancer Family/Other Diabetes Other Congenital heart disease Denies family history of CAD (coronary artery disease) Clotting disorder Dementia Chronic kidney disease (CKD) Suicide Anesthesia complication Bleeding disorder Lung disease Stroke Social History Smoking and tobacco/nicotine status: former use of tobacco/nicotine Alcohol intake: current Alcohol intake frequency: 0-2 Drinks per Day Alcohol type: beer Substance/Drug Use: never Physical Exam Const: COMMON NORMALS: no acute distress, patient oriented x3 and healthy appearing HENMT: COMMON NORMALS: normocephalic and atraumatic HEAD & SCALP: normocephalic and atraumatic Eye: COMMON NORMALS: Equal, round and reactive pupils present PUPIL: Yes Equal, round and reactive pupils present Neck/C-Spine: COMMON NORMALS: full ROM and supple OTHER: Paraspinal tenderness along the neck with tenderness down both his trapezius Chest: COMMONS NORMALS: normal inspection of the chest and normal palpation of entire chest wall Resp: COMMON NORMALS: normal respiratory effort, No retractions, No use of accessory muscles and clear to auscultation bilaterally AUSCULTATION: clear to auscultation bilaterally Cardio: COMMON NORMALS: regular rate, regular rhythm and No murmurs present (Cardio) RATE: regular rate RHYTHM: regular rhythm Extremity: COMMON NORMALS: normal to inspection and full ROM Neuro: COMMON NORMALS: patient oriented x3, moves all extremities and no focal motor deficits Psych: COMMON NORMALS: mental status grossly normal, Normal thought process present and cooperative THOUGHT PROCESS: Normal thought process present Skin: COMMON NORMALS: no rashes or lesions noted and no wounds GENERAL SKIN EXAM: no rashes or lesions noted Course Vital Signs: Vital signs: Vital Signs Temperature 98.4 F 02/26/24 10:40 Pulse Rate 102 H 02/26/24 10:40 Blood Pressure 147/68 02/26/24 10:40 Pulse Oximetry 95 02/26/24 10:40 Oxygen Delivery Me thod Room Air 02/26/24 10:40 MDM - Neck Pain/Injury Medical Decision Making Patient presents with neck pain is likely muscular in nature has no signs of spinal cord findings no signs of cord compression. He feels much improved here after pain meds we will start him on Naprosyn and Robaxin and have him follow-up with his PCP and return if worsening. Medical Records I reviewed the patient's medical records. XR interpretation done by ED provider, pending radiology final review ED provider radiology interpretation(s): xr c spine no acute abnormality Discharge Plan Discharge Patient Disposition: Home Clinical Impression: Neck pain Condition: Stable Prescriptions: New methocarbamol 750 mg tablet 750 mg PO Q6H PRN (Reason: spasms) Qty: 20 0RF Naprosyn 500 mg tablet 500 mg PO BID PRN (Reason: pain) Qty: 20 0RF No Action hydromorphone [Dilaudid] 4 mg tablet 4 mg PO Q4H PRN (Reason: BREATH THROUGH PAIN) morphine 200 mg tablet extended release 200 mg PO Q12H Rx Instructions: qam and qhs (DME) Walker with 4 wheels and a seat See Rx Instructions .Route .MEDSUPPLY Qty: 1 0RF Rx Instructions: As directed warfarin 5 mg tablet 5 mg PO DAILY Qty: 90 0RF Protocol: Dose Management Condition: Tuesday Dose/Route: 4 mg Instruction: 1 x 4 mg tablet Condition: Tuesday Dose/Route: 4 mg Instruction: 1 x 4 mg tablet Condition: Tuesday Dose/Route: 5 mg Instruction: 1 x 5 mg tablet Condition: Tuesday Dose/Route: 4 mg Instruction: 1 x 4 mg tablet Condition: Dose/Route: 5 mg Instruction: 1 x 5 mg tablet Condition: Tuesday Dose/Route: 4 mg Instruction: 1 x 4 mg tablet Condition: Tuesday Dose/Route: 4 mg Instruction: 1 x 4 mg tablet Protocol Text: Adjustment Start Date: 02/23/24 INR Value: 2.8 INR Date: 02/21/24 Recheck Date: 03/01/24 Rx Instructions: 5mg Tuesday and warfarin 4 mg tablet 4 mg PO QPM Protocol: Dose Management Condition: Tuesday Dose/Route: 4 mg Instruction: 1 x 4 mg tablet Condition: Tuesday Dose/Route: 4 mg Instruction: 1 x 4 mg tablet Condition: Tuesday Dose/Route: 5 mg Instruction: 1 x 5 mg tablet Condition: Tuesday Dose/Route: 4 mg Instruction: 1 x 4 mg tablet Condition: Dose/Route: 5 mg Instruction: 1 x 5 mg tablet Condition: Tuesday Dose/Route: 4 mg Instruction: 1 x 4 mg tablet Condition: Tuesday Dose/Route: 4 mg Instruction: 1 x 4 mg tablet Protocol Text: Adjustment Start Date: 02/23/24 INR Value: 2.8 INR Date: 02/21/24 Recheck Date: 03/01/24 Rx Instructions: 4mg Tuesday and Tuesday albuterol sulfate [ProAir HFA] 90 mcg/actuation HFA aerosol inhaler 2 puff inhalation Q6H PRN (Reason: shortness of breath or wheezing) Qty: 8.5 6RF nitroglycerin [Nitrostat] 0.4 mg tablet, sublingual 0.4 mg SUBLINGUAL Q5M PRN (Reason: Chest Pain) Qty: 60 3RF potassium chloride [Klor-Con 10] 10 mEq tablet extended release 10 meq PO DAILY Qty: 30 6RF lactulose 10 gram/15 mL solution See Rx Instructions .ROUTE .COMPLEX Qty: 300 5RF Dose Instruction: TAKE 3 TEASPOONFULS (15ML) BY MOUTH TWO TIMES DAILY NEEDED FOR CONSTIPATION Rx Instructions: TAKE 3 TEASPOONFULS (15ML) BY MOUTH TWO TIMES DAILY NEEDED FOR CONSTIPATION atorvastatin 40 mg tablet See Rx Instructions .ROUTE .COMPLEX Qty: 90 3RF Dose Instruction: TAKE 1 TABLET BY MOUTH EVERY DAY Rx Instructions: TAKE 1 TABLET BY MOUTH EVERY DAY alprazolam 0.5 mg tablet 0.5 mg PO BID PRN (Reason: anxiety) Qty: 60 3RF warfarin 3 mg tablet See Rx Instructions .ROUTE .COMPLEX Qty: 90 2RF Protocol: Dose Management Condition: Tuesday Dose/Route: 4 mg Instruction: 1 x 4 mg tablet Condition: Tuesday Dose/Route: 4 mg Instruction: 1 x 4 mg tablet Condition: Tuesday Dose/Route: 5 mg Instruction: 1 x 5 mg tablet Condition: Tuesday Dose/Route: 4 mg Instruction: 1 x 4 mg tablet Condition: Dose/Route: 5 mg Instruction: 1 x 5 mg tablet Condition: Tuesday Dose/Route: 4 mg Instruction: 1 x 4 mg tablet Condition: Tuesday Dose/Route: 4 mg Instruction: 1 x 4 mg tablet Protocol Text: Adjustment Start Date: 02/23/24 INR Value: 2.8 INR Date: 02/21/24 Recheck Date: 03/01/24 Dose Instruction: TAKE 1 TABLET BY MOUTH EVERY DAY ON TUESDAY, TUESDAY, TUESDAY AND TUESDAY Rx Instructions: TAKE 1 TABLET BY MOUTH EVERY DAY ON TUESDAY, TUESDAY, TUESDAY AND TUESDAY magnesium oxide 400 mg (241.3 mg magnesium) tablet See Rx Instructions .ROUTE .COMPLEX Qty: 180 3RF Dose Instruction: TAKE 1 TABLET BY MOUTH TWO TIMES DAILY Rx Instructions: TAKE 1 TABLET BY MOUTH TWO TIMES DAILY FeroSul 325 mg (65 mg iron) tablet See Rx Instructions .ROUTE .COMPLEX Qty: 60 10RF Dose Instruction: TAKE 1 TABLET BY MOUTH TWO TIMES DAILY Rx Instructions: TAKE 1 TABLET BY MOUTH TWO TIMES DAILY sennosides [senna] 8.6 mg tablet See Rx Instructions .ROUTE .COMPLEX Qty: 60 8RF Dose Instruction: TAKE 1 TO 2 TABLETS BY MOUTH EVERY 6 HOURS NEEDED FOR CONSTIPATION Rx Instructions: TAKE 1 TO 2 TABLETS BY MOUTH EVERY 6 HOURS NEEDED FOR CONSTIPATION tamsulosin 0.4 mg capsule See Rx Instructions .ROUTE .COMPLEX Qty: 30 10RF Dose Instruction: TAKE ONE CAPSULE BY MOUTH EVERY EVENING Rx Instructions: TAKE ONE CAPSULE BY MOUTH EVERY EVENING ondansetron HCl 4 mg tablet 4 mg PO Q6H PRN (Reason: Nausea And Vomiting) digoxin 125 mcg (0.125 mg) tablet 0.125 mg PO QAM metoprolol tartrate 25 mg tablet 25 mg PO DAILY PRN (Reason: blood pressure) Discharge Orders: Discharge ED (Routine); Ordered 02/26/24 Ordered By: Cirilo Rubalcava Referrals: Jesus Nguyen MD [Primary Care Provider] - 1-3 days Discharge Diet: Advance as tolerated Discharge Activity: Resume usual activity Patient Instructions: Neck Pain (ED) Coding Level of Care Code ED Certified Prosthetist/Orthotist for Adela Domingo
[2024-02-26 12:53] VITALS: BP 123/67; PULSE 90; O2SAT 97
== END 2024-02-26 12:54 | disposition home or self-care (01) ==
PROVIDERS: Emergency Provider Emergency Medicine; PCP Family Medicine
DX: M54.2 Cervicalgia (principal); I11.0 Hypertensive heart disease with heart failure; I50.9 Heart failure, unspecified; I25.10 Atherosclerotic heart disease of native coronary artery without angina pectoris; I25.2 Old myocardial infarction; E78.5 Hyperlipidemia, unspecified; Z79.899 Other long term (current) drug therapy; Z79.01 Long term (current) use of anticoagulants; Z87.891 Personal history of nicotine dependence; Z86.73 Personal history of transient ischemic attack (TIA), and cerebral infarction without residual deficits
CPT/HCPCS: 72040; 96372; 99284; J1100; J2270

== ENCOUNTER → 2024-03-13 15:00 | Outpatient (BNVA) | payer MEDICARE, MEDICAID, SELFPAY | PROVIDERS: PCP Family Medicine; Visit Provider Family Medicine | DX: R39.15 Urgency of urination (principal) | CPT/HCPCS: 87086 ==

== ENCOUNTER → 2024-04-23 13:44 | Outpatient (BNVA) | payer MEDICARE, MEDICAID, SELFPAY | PROVIDERS: PCP Family Medicine; Visit Provider Podiatrist Foot & Ankle Surgery | DX: L84 Corns and callosities (principal); M20.41 Other hammer toe(s) (acquired), right foot | CPT/HCPCS: 99203 ==

== ENCOUNTER 2024-06-05 22:21 | Emergency (ER) | payer MEDICARE, MEDICAID, SELFPAY ==
[2024-06-05 22:20] VITALS: BP 146/80; PULSE 76; RESP 13; TEMP 37.7; O2SAT 98; BMI 31.6
[2024-06-05 22:28] VITALS: BP 148/78; PULSE 67; O2SAT 95
--- NOTE | 2024-06-05 22:36 | XRR_ITS ---
PROCEDURE INFORMATION: Exam: XR Chest Exam date and time: 06/05/2024 10:39 PM Age: 73 years old Clinical indication: Shortness of breath; Prior surgery; Surgery date: 6+ months; Surgery type: Openheart; Additional info: Mild SOB TECHNIQUE: Imaging protocol: Radiologic exam of the chest. Views: 1 view. COMPARISON: CR XR chest 1V portable [id number] 07/26/2023 11:28 AM FINDINGS: Lungs: No focal consolidation. Pleural spaces: Unremarkable. No pleural effusion. No pneumothorax. Heart/Mediastinum: See Bones/joints finding. Bones/joints: Prior median sternotomy and aortic valve replacement. XR/XR chest 1V portable [id number] IMPRESSION: No focal consolidation.
--- NOTE | 2024-06-05 22:38 | ED_ITS ---
HPI - URI/Sore Throat 2 General: Chief Complaint: Upper Respiratory Infection Stated Complaint: sore throat headache Time Seen by Provider: 06/05/24 22:26 Source: patient Mode of arrival: EMS Limitations: no limitations History of Present Illness: Patient is a 73-year-old male who presents the emergency department by ambulance for sore throat over the past few days. He lives at [facility] in [place] by himself, denies any known sick contacts. He is reporting the sore throat along with a headache, nasal congestion, and mild increase in his shortness of breath though he states he is a COPD patient. He does have oxygen that he uses at home as needed, currently on 3 L O2. He is noted to be breathing comfortably and does not appear in any acute distress. Elevated temperature of 99.9 recorded here. He denies any known fevers, has not taken anything for his symptoms. No chest pain, palpitations, vomiting, bowel changes, or other symptoms. No history of liver cirrhosis or esophageal varices. No hemoptysis reported. MD elicited complaint: sore throat Onset (ago): day(s) Consistency: constant Severity: moderate Description of mucous: clear Able to tolerate fluids by mouth: Yes Exacerbating factors: nothing Relieving factors: nothing Associated symptoms: Reports headache(s) and nasal congestion; Deny abdominal pain, chills, chest pain, diarrhea, ear or mastoid pain, fever(s), nausea or vomiting Treatments prior to arrival: none Related Data Home Medications Medication Instructions Recorded Confirmed hydromorphone 4 mg tablet 4 mg PO Q4H PRN BREATH THROUGH PAIN 08/30/19 04/23/24 (Dilaudid) morphine 200 mg tablet,extended 200 mg PO Q12H pain 10/14/22 04/23/24 release ondansetron HCl 4 mg tablet 4 mg PO Q6H PRN Nausea And Vomiting 07/26/23 04/23/24 Previous Rx's Medication Instructions Recorded albuterol sulfate 90 mcg/actuation 2 puff inhalation Q6H PRN 09/08/22 aerosol inhaler (ProAir HFA) shortness of breath or wheezing #8.5 grams nitroglycerin 0.4 mg sublingual 0.4 mg sublingual Q5M PRN Chest 08/23/23 tablet (Nitrostat) Pain #60 tabs potassium chloride 10 mEq 10 meq PO DAILY #30 tabs 09/22/23 tablet,extended release (Klor-Con) lactulose 10 gram/15 mL oral See Rx Instructions .Route 10/05/23 solution .COMPLEX #300 mL atorvastatin 40 mg tablet See Rx Instructions .Route 10/18/23 .COMPLEX #90 tabs warfarin 3 mg tablet See Rx Instructions .Route 10/27/23 .COMPLEX #90 tabs ferrous sulfate 325 mg (65 mg See Rx Instructions .Route 11/15/23 iron) tablet (FeroSul) .COMPLEX #60 tabs magnesium oxide 400 mg (241.3 mg See Rx Instructions .Route 11/15/23 magnesium) tablet .COMPLEX #180 tabs Walker with 4 wheels and a seat #1 ea 12/09/23 warfarin 5 mg tablet 5 mg PO DAILY #90 tabs 02/23/24 methocarbamol 750 mg tablet 750 mg PO Q6H PRN spasms #20 tabs 02/26/24 naproxen 500 mg tablet (Naprosyn) 500 mg PO BID PRN pain #30 tabs 03/08/24 tamsulosin 0.4 mg capsule See Rx Instructions .Route 03/08/24 .COMPLEX #60 caps warfarin 4 mg tablet See Rx Instructions .Route 03/20/24 .COMPLEX #90 tabs Repairs for Walker with 4 wheels #1 ea 04/09/24 and seat digoxin 125 mcg (0.125 mg) tablet See Rx Instructions .Route 04/17/24 .COMPLEX #30 tabs sennosides 8.6 mg tablet (senna) See Rx Instructions .Route 04/17/24 .COMPLEX #60 tabs alprazolam 0.5 mg tablet 0.5 mg PO BID PRN anxiety #60 tabs 05/08/24 metoprolol tartrate 25 mg tablet See Rx Instructions .Route 06/04/24 .COMPLEX #90 tabs lidocaine HCl 2 % mucosal solution 10 ml mucous membrane DAILY PRN 06/05/24 (Lidocaine Viscous) pain #100 mL Allergies Allergy/AdvReac Type Severity Reaction Status Date / Time clindamycin Allergy Unknown Unknown Verified 04/23/24 13:55 butorphanol Allergy Unknown Verified 04/23/24 13:55 gabapentin Allergy ADR-Halluci Verified 04/23/24 13:55 nating methadone Allergy Unknown Verified 04/23/24 13:55 nalbuphine Allergy Unknown Verified 04/23/24 13:55 pentazocine Allergy Unknown Verified 04/23/24 13:55 Review of Systems 2 General: Reports: 10 or more systems reviewed and unremarkable except in HPI and below Const: Denies: fever(s), chills or fatigue Eyes: Denies: change in vision ENMT: Reports: throat pain and nasal congestion; Denies: ear or mastoid pain Card: Denies: chest pain, palpitations, swelling of feet/ankles or lightheadedness Resp: Reports: dyspnea; Denies: productive cough or wheezing GI: Denies: abdominal pain, nausea, vomiting, diarrhea or constipation : Denies: flank pain, difficulty urinating, dysuria or urinary frequency Musc: Denies: neck pain, back pain or joint pain Skin/Breast: Denies: rash Neuro: Reports: headache(s); Denies: numbness in extremities or weakness in extremities PFSH ED 2 PFSH: Medical History Hyperlipemia Coronary artery disease [facility] in 04/2020- mild CAD lesion circumflex NSTEMI (non-ST elevated myocardial infarction) Anxiety BPH (benign prostatic hyperplasia) -on Flomax Atrial fibrillation This is not confirmed in his old records but patient believes this is the reason he is on digoxin when asked. Congestive heart failure Echocardiogram April 2020 demonstrated preserved ejection fraction, mechanical prosthetic valve aortic Hypertension -VSS; continue to monitor -continue oral antihypertensives Transient ischemic attack Anemia GI bleed Chronic back pain Arthritis Surgical History History of amputation of left great toe Partial with reattachment surgically History of knee surgery History of hernia repair Previous back surgery Hx of appendectomy Aortic valve replaced -Mechanical. On anticoagulation. -Subtherapeutic INRs will need bridging with therapeutic Lovenox for a few days Family History Mother Cancer Grandmother Cancer Family/Other Diabetes Other Congenital heart disease Denies family history of CAD (coronary artery disease) Clotting disorder Dementia Chronic kidney disease (CKD) Suicide Anesthesia complication Bleeding disorder Lung disease Stroke Social History Smoking and tobacco/nicotine status: former use of tobacco/nicotine Alcohol intake: current Alcohol intake frequency: 0-2 Drinks per Day Alcohol type: beer Substance/Drug Use: never Physical Exam 2 Const: COMMON NORMALS: no acute distress and no limitations GENERAL APPEARANCE: cooperative, comfortable and well developed O RIENTATION/CONSCIOUSNESS: Yes awake HENMT: COMMON NORMALS: normocephalic, atraumatic, hearing grossly normal bilaterally and Normal external nose present HEAD & SCALP: normocephalic and atraumatic FACE & SINUS: normal facial exam NOSE: Normal external nose present and Normal nares present MOUTH: Normal oral and palatal mucosa present, lip normal and tongue normal THROAT: posterior oropharynx normal, tonsils normal and uvula midline Eye: COMMON NORMALS: Equal, round and reactive pupils present, EOMs intact bilaterally and conjunctivae normal CONJUNCTIVA: Yes conjunctivae normal P UPIL: Yes Equal, round and reactive pupils present Neck/C-Spine: COMMON NORMALS: full ROM, supple and no JVD Resp: COMMON NORMALS: normal respiratory effort, No retractions, No use of accessory muscles and clear to auscultation bilaterally AUSCULTATION: clear to auscultation bilaterally Cardio: COMMON NORMALS: no JVD, regular rate, regular rhythm, No clicks present (Cardio), No murmurs present (Cardio) and No rub (Cardio) RATE: r egular rate RHYTHM: regular rhythm GI: COMMON NORMALS: Normal to inspection, nondistended, normoactive bowel sounds present, Soft to palpation and non-tender AUSCULTATION: Yes normoactive bowel sounds PALPATION: Yes Soft to palpation RECTAL EXAM: Yes deferred Extremity: COMMON NORMALS: normal to inspection, full ROM and capillary refill normal Psych: COMMON NORMALS: mental status grossly normal and Normal thought process present THOUGHT PROCESS: Normal thought process present Skin: COMMON NORMALS: no rashes or lesions noted GENERAL SKIN EXAM: no rashes or lesions noted Course 2 Vital Signs: Vital signs: Vital Signs Temperature 99.9 F H 06/05/24 22:20 Pulse Rate 76 06/05/24 22:20 Respiratory Rate 13 06/05/24 22:20 Blood Pressure 146/80 06/05/24 22:20 Pulse Oximetry 98 06/05/24 22:20 Oxygen Delivery Me thod Nasal Cannula 06/05/24 22:20 Oxygen Flow Rate 3 06/05/24 22:20 MDM - URI/Sore Throat Medical Decision Making Patient presented by ambulance for sore throat amongst other upper respiratory symptoms. He does have a history of COPD and states he uses O2 at home as needed. He does arrive on 3 L of O2 has been oxygenating 98 to 100%. Elevated temperature of 99.9 on arrival. Overall his physical examination was unremarkable. Chest x-ray negative. Strep swab negative. COVID swab was positive, rest of his labs unremarkable, low sodium likely secondary to dehydration. Encouraged to drink plenty of fluids, alternate Tylenol and ibuprofen, contact precautions, and will prescribe viscous lidocaine for sore throat at his request. Reasons to return were discussed such as any severe shortness of breath, to which he understands. Discussed contact precautions. Lab Data 06/05/24 23:00 06/05/24 23:00 Radiology Impressions Chest X-Ray 06/05/24 22:36 IMPRESSION: No focal consolidation. Laboratory Results WBC 7.98 10^3/uL (3.29-11.43) 06/05/24 23:00 RBC 4.43 10^6/uL (3.85-5.65) 06/05/24 23:00 Hgb 13.00 g/dL (11.27-16.99) 06/05/24 23:00 Hct 38.9 % (37-53) 06/05/24 23:00 MCV 87.8 fl (82-101) 06/05/24 23:00 MCH 29.3 pg (27-33) 06/05/24 23:00 MCHC 33.4 g/dL (30-55) 06/05/24 23:00 RDW 12.4 % (12.1-15.1) 06/05/24 23:00 Plt Count 198 10^3/cmm (157-399) 06/05/24 23:00 MPV 9.9 fL (7.4-10.4) 06/05/24 23:00 Neut % (Auto) 77.3 % 06/05/24 23:00 Lymph % (Auto) 6.0 % 06/05/24 23:00 [place] % (Auto) 15.7 % 06/05/24 23:00 Eos % (Auto) 0.1 % 06/05/24 23:00 Baso % (Auto) 0.4 % 06/05/24 23:00 Neut # (Auto) 6.17 10^3/uL (1.8-7.7) 06/05/24 23:00 Lymph # (Auto) 0.5 10^3/uL (0.8-4.8) L 06/05/24 23:00 [place] # (Auto) 1.3 10^3/uL (0.2-0.9) H 06/05/24 23:00 Eos # (Auto) 0.0 10^3/uL (0.0-0.8) 06/05/24 23:00 Baso # (Auto) 0.0 10^3/uL (0.0-0.1) 06/05/24 23:00 Nucleated RBC % (auto) 0 % 06/05/24 23:00 Nucleated RBCs # 0.0 /100WBC 06/05/24 23:00 Sodium 130 mmol/L (136-145) L 06/05/24 23:00 Potassium 4.3 mmol/L (3.5-5.1) 06/05/24 23:00 Chloride 92 mmol/L (98-107) L 06/05/24 23:00 Carbon Dioxide 27 mmol/L (22-29) 06/05/24 23:00 Anion Gap 15.3 (5-19) 06/05/24 23:00 BUN 12 mg/dL (8-23) 06/05/24 23:00 Creatinine 0.6 mg/dL (0.7-1.2) L 06/05/24 23:00 GFR Calculation Not Reportable 06/05/24 23:00 Glucose 114 mg/dL (65-115) 06/05/24 23:00 Calculated Osmolality 271 mOsm/kg (285-295) L 06/05/24 23:00 Calcium 8.1 mg/dL (8.5-10.5) L 06/05/24 23:00 Total Bilirubin 0.5 mg/dL (0.15-1.2) 06/05/24 23:00 AST 35 U/L (0-40) 06/05/24 23:00 ALT 24 U/L (0-41) 06/05/24 23:00 Alkaline Phosphatase 98 U/L (40-130) 06/05/24 23:00 Total Protein 7.5 g/dL (6.6-8.7) 06/05/24 23:00 Albumin 3.8 g/dL (3.5-5.2) 06/05/24 23:00 Globulin 3.7 g/dL (1.3-4.6) 06/05/24 23:00 Coronavirus (PCR) Positive (Negative) A 06/05/24 22:31 Influenza A (PCR) Negative (Negative) 06/05/24 22:31 Influenza Type B (PCR) Negative (Negative) 06/05/24 22:31 RSV (PCR) Negative (Negative) 06/05/24 22:31 Group A Strep Rapid Negative (Negative) 06/05/24 22:31 XR interpretation done by ED provider, pending radiology final review ED provider radiology interpretation(s): Chest x-ray not showing any acute findings. Discharge Plan Discharge Patient Disposition: Home Clinical Impression: COVID Condition: Stable Prescriptions: New lidocaine HCl [Lidocaine Viscous] 2 % solution 10 ml mucous membrane DAILY PRN (Reason: pain) Qty: 100 0RF No Action hydromorphone [Dilaudid] 4 mg tablet 4 mg PO Q4H PRN (Reason: BREATH THROUGH PAIN) morphine 200 mg tablet extended release 200 mg PO Q12H Rx Instructions: qam and qhs Naprosyn 500 mg tablet 500 mg PO BID PRN (Reason: pain) Qty: 30 3RF tamsulosin 0.4 mg capsule See Rx Instructions .ROUTE .COMPLEX Qty: 60 10RF Dose Instruction: TAKE ONE CAPSULE BY MOUTH EVERY EVENING Rx Instructions: TAKE TWO CAPSULEs BY MOUTH EVERY EVENING (DME) Repairs for Walker with 4 wheels and seat See Rx Instructions .Route .MEDSUPPLY Qty: 1 0RF Rx Instructions: Needs brakes repaired. (DME) Walker with 4 wheels and a seat See Rx Instructions .Route .MEDSUPPLY Qty: 1 0RF Rx Instructions: As directed warfarin 5 mg tablet 5 mg PO DAILY Qty: 90 0RF Protocol: Dose Management Condition: Tuesday Dose/Route: 5 mg Instruction: 1 x 5 mg tablet Condition: Tuesday Dose/Route: 4 mg Instruction: 1 x 4 mg tablet Condition: Tuesday Dose/Route: 5 mg Instruction: 1 x 5 mg tablet Condition: Tuesday Dose/Route: 5 mg Instruction: 1 x 5 mg tablet Condition: Dose/Route: 5 mg Instruction: 1 x 5 mg tablet Condition: Tuesday Dose/Route: 4 mg Instruction: 1 x 4 mg tablet Condition: Tuesday Dose/Route: 5 mg Instruction: 1 x 5 mg tablet Protocol Text: Adjustment Start Date: Tuesday05/29/24 INR Value: 2.6 INR Date: 05/29/24 Recheck Date: 06/05/24 Rx Instructions: 5mg Tuesday and albuterol sulfate [ProAir HFA] 90 mcg/actuation HFA aerosol inhaler 2 puff inhalation Q6H PRN (Reason: shortness of breath or wheezing) Qty: 8.5 6RF nitroglycerin [Nitrostat] 0.4 mg tablet, sublingual 0.4 mg SUBLINGUAL Q5M PRN (Reason: Chest Pain) Qty: 60 3RF potassium chloride [Klor-Con 10] 10 mEq tablet extended release 10 meq PO DAILY Qty: 30 6RF lactulose 10 gram/15 mL solution See Rx Instructions .ROUTE .COMPLEX Qty: 300 5RF Dose Instruction: TAKE 3 TEASPOONFULS (15ML) BY MOUTH TWO TIMES DAILY NEEDED FOR CONSTIPATION Rx Instructions: TAKE 3 TEASPOONFULS (15ML) BY MOUTH TWO TIMES DAILY NEEDED FOR CONSTIPATION atorvastatin 40 mg tablet See Rx Instructions .ROUTE .COMPLEX Qty: 90 3RF Dose Instruction: TAKE 1 TABLET BY MOUTH EVERY DAY Rx Instructions: TAKE 1 TABLET BY MOUTH EVERY DAY warfarin 3 mg tablet See Rx Instructions .ROUTE .COMPLEX Qty: 90 2RF Protocol: Dose Management Condition: Tuesday Dose/Route: 5 mg Instruction: 1 x 5 mg tablet Condition: Tuesday Dose/Route: 4 mg Instruction: 1 x 4 mg tablet Condition: Tuesday Dose/Route: 5 mg Instruction: 1 x 5 mg tablet Condition: Tuesday Dose/Route: 5 mg Instruction: 1 x 5 mg tablet Condition: Dose/Route: 5 mg Instruction: 1 x 5 mg tablet Condition: Tuesday Dose/Route: 4 mg Instruction: 1 x 4 mg tablet Condition: Tuesday Dose/Route: 5 mg Instruction: 1 x 5 mg tablet Protocol Text: Adjustment Start Date: Tuesday05/29/24 INR Value: 2.6 INR Date: 05/29/24 Recheck Date: 10/22/24 Dose Instruction: TAKE 1 TABLET BY MOUTH EVERY DAY ON TUESDAY, TUESDAY, TUESDAY AND TUESDAY Rx Instructions: TAKE 1 TABLET BY MOUTH EVERY DAY ON TUESDAY, TUESDAY, TUESDAY AND TUESDAY magnesium oxide 400 mg (241.3 mg magnesium) tablet See Rx Instructions .ROUTE .COMPLEX Qty: 180 3RF Dose Instruction: TAKE 1 TABLET BY MOUTH TWO TIMES DAILY Rx Instructions: TAKE 1 TABLET BY MOUTH TWO TIMES DAILY FeroSul 325 mg (65 mg iron) tablet See Rx Instructions .ROUTE .COMPLEX Qty: 60 10RF Dose Instruction: TAKE 1 TABLET BY MOUTH TWO TIMES DAILY Rx Instructions: TAKE 1 TABLET BY MOUTH TWO TIMES DAILY warfarin 4 mg tablet See Rx Instructions .ROUTE .COMPLEX Qty: 90 3RF Protocol: Dose Management Condition: Tuesday Dose/Route: 5 mg Instruction: 1 x 5 mg tablet Condition: Tuesday Dose/Route: 4 mg Instruction: 1 x 4 mg tablet Condition: Tuesday Dose/Route: 5 mg Instruction: 1 x 5 mg tablet Condition: Tuesday Dose/Route: 5 mg Instruction: 1 x 5 mg tablet Condition: Dose/Route: 5 mg Instruction: 1 x 5 mg tablet Condition: Tuesday Dose/Route: 4 mg Instruction: 1 x 4 mg tablet Condition: Tuesday Dose/Route: 5 mg Instruction: 1 x 5 mg tablet Protocol Text: Adjustment Start Date: Tuesday05/29/24 INR Value: 2.6 INR Date: 05/29/24 Recheck Date: 06/05/24 Dose Instruction: TAKE 1 TABLET BY MOUTH DIRECTED Rx Instructions: TAKE 1 TABLET BY MOUTH DIRECTED sennosides [senna] 8.6 mg tablet See Rx Instructions .ROUTE .COMPLEX Qty: 60 8RF Dose Instruction: TAKE 1 TO 2 TABLETS BY MOUTH EVERY 6 HOURS NEEDED FOR CONSTIPATION Rx Instructions: TAKE 1 TO 2 TABLETS BY MOUTH EVERY 6 HOURS NEEDED FOR CONSTIPATION digoxin 125 mcg (0.125 mg) tablet See Rx Instructions .ROUTE .COMPLEX Qty: 30 9RF Dose Instruction: TAKE 1 TABLET BY MOUTH EVERY MORNING Rx Instructions: TAKE 1 TABLET BY MOUTH EVERY MORNING alprazolam 0.5 mg tablet 0.5 mg PO BID PRN (Reason: anxiety) Qty: 60 3RF metoprolol tartrate 25 mg tablet See Rx Instructions .ROUTE .COMPLEX Qty: 90 3RF Dose Instruction: TAKE 1 TABLET BY MOUTH EVERY DAY NEEDED FOR BLOOD PRESSURE DO NOT FILL UNLESS THEY ASK FOR IT Rx Instructions: TAKE 1 TABLET BY MOUTH EVERY DAY NEEDED FOR BLOOD PRESSURE DO NOT FILL UNLESS THEY ASK FOR IT methocarbamol 750 mg tablet 750 mg PO Q6H PRN (Reason: spasms) Qty: 20 0RF ondansetron HCl 4 mg tablet 4 mg PO Q6H PRN (Reason: Nausea And Vomiting) Discharge Orders: Discharge ED (Routine); Ordered 06/05/24 Ordered By: Cornelio Jameson Referrals: Jesus Nguyen MD [Primary Care Provider] - Discharge Diet: As Directed Patient Instructions: COVID-19 (Coronavirus Disease 2019) (ED) Activity Restrictions/Additional Instructions: Drink plenty of fluids. Viscous lidocaine for your sore throat. Alternate Tylenol and ibuprofen. Continue using O2 at home for comfort, however return if you develop any severe shortness of breath, or other concerning symptoms. Contact precautions as discussed. Coding Level of Care Code ED Lining Stuffer for Adela Domingo
[2024-06-05 22:48] LABS: Rapid Strep A Test Negative (Negative)
[2024-06-05] MEDS: ibuprofen 800 mg tablet PO (22:52)
[2024-06-05 23:17] LABS: Influenza A NEGATIVE (Negative); Influenza B NEGATIVE (Negative); Respiratory Syncytial Virus Ce NEGATIVE (Negative)
[2024-06-05 23:20] LABS: Covid PCR Positive (Negative)
[2024-06-05 23:21] LABS: Basophils % 0.4 %; Eosinophils % 0.1 %; Hematocrit 38.9 % (37-53); Lymphocytes # 0.5 10^3/uL (0.8-4.8); Mean Corpuscular HGB Conc 33.4 g/dL (30-55); Mean Corpuscular Hemoglobin 29.3 pg (27-33); Mean Corpuscular Volume 87.8 fl (82-101); Mean Platelet Volume 9.9 fL (7.4-10.4); Monocytes # 1.3 10^3/uL (0.2-0.9); Monocytes % 15.7 %; Neutrophils # 6.17 10^3/uL (1.8-7.7); Neutrophils % 77.3 %; Nucleated Red Blood Cells % 0 %; Platelet Count 198 10^3/cmm (157-399); Red Blood Count 4.43 10^6/uL (3.85-5.65); Red Cell Distribution Width 12.4 % (12.1-15.1); White Blood Count 7.98 10^3/uL (3.29-11.43)
[2024-06-05 23:23] LABS: Alanine Aminotransferase 24 U/L (0-41); Albumin Level 3.8 g/dL (3.5-5.2); Alkaline Phosphatase 98 U/L (40-130); Blood Urea Nitrogen 12 mg/dL (8-23); Calcium 8.1 mg/dL (8.5-10.5); Carbon Dioxide 27 mmol/L (22-29); Chloride 92 mmol/L (98-107); Creatinine Clr Calc Pharmacy 90.2674; Globulin 3.7 g/dL (1.3-4.6); Glucose 114 mg/dL (65-115); Osmolality Calculated 271 mOsm/kg (285-295); Sodium 130 mmol/L (136-145); Total Bilirubin 0.5 mg/dL (0.15-1.2); Total Protein 7.5 g/dL (6.6-8.7)
[2024-06-05 23:25] LABS: Anion Gap 15.3 (5-19); Aspartate Amino Transferase 35 U/L (0-40); Potassium 4.3 mmol/L (3.5-5.1)
[2024-06-05] MEDS: lidocaine 2% viscous 15 mL UDC MUCOUS MEM (23:53)
[2024-06-06 01:02] VITALS: BP 150/82; PULSE 72; O2SAT 96
== END 2024-06-06 00:15 | disposition home or self-care (01) ==
PROVIDERS: Emergency Provider Physician Assistant; PCP Family Medicine
DX: U07.1 COVID-19 (principal); Z99.81 Dependence on supplemental oxygen; J44.9 Chronic obstructive pulmonary disease, unspecified
CPT/HCPCS: 0241U; 71045; 80053; 85025; 87081; 87880; 99284

== ENCOUNTER 2024-06-22 05:41 | Emergency (ER) | payer MEDICARE, MEDICAID, SELFPAY ==
[2024-06-22 05:46] VITALS: BP 143/88; PULSE 104; RESP 18; TEMP 36.2; O2SAT 98; BMI 42.5
--- NOTE | 2024-06-22 05:51 | XRR_ITS ---
PROCEDURE INFORMATION: Exam: XR Right Wrist Exam date and time: 06/22/2024 5:52 AM Age: 73 years old Clinical indication: Pain; Wrist; Right; Additional info: Nontraumatic pain swelling TECHNIQUE: Imaging protocol: Radiologic exam of the right wrist. Views: 3 or more views. COMPARISON: No relevant prior studies available. FINDINGS: Bones/joints: Faint chondrocalcinosis. Widening of the scapholunate interval suggesting prior ligamentous injury. No fracture or dislocation. Soft tissues: Normal. XR/XR wrist RT min 3V* 45210 IMPRESSION: 1. No acute findings. 2. Degenerative changes with chondrocalcinosis.
--- NOTE | 2024-06-22 06:02 | W.ED.EXTPRO ---
HPI - Extremity Problem General: Chief complaint: Extremity Problem,Nontraumatic Stated complaint: RT. Arm Pain Time Seen by Provider: 06/22/24 05:53 History of Present Illness: 73-year-old male comes in complaining of right wrist pain radiating proximally. He feels like he has pain and swelling extending distally as well to his fingers. No history of trauma or crush injury no fall. He has not previously had this before. No surgeries to that hand previously Associated symptoms: Deny chest pain, fever(s) or rash Related Data Home Medications Medication Instructions Recorded Confirmed hydromorphone 4 mg tablet 4 mg PO Q4H PRN BREATH THROUGH PAIN 08/30/19 04/23/24 (Dilaudid) morphine 200 mg tablet,extended 200 mg PO Q12H pain 10/14/22 04/23/24 release ondansetron HCl 4 mg tablet 4 mg PO Q6H PRN Nausea And Vomiting 07/26/23 04/23/24 Previous Rx's Medication Instructions Recorded albuterol sulfate 90 mcg/actuation 2 puff inhalation Q6H PRN 09/08/22 aerosol inhaler (ProAir HFA) shortness of breath or wheezing #8.5 grams nitroglycerin 0.4 mg sublingual 0.4 mg sublingual Q5M PRN Chest 08/23/23 tablet (Nitrostat) Pain #60 tabs potassium chloride 10 mEq 10 meq PO DAILY #30 tabs 09/22/23 tablet,extended release (Klor-Con) atorvastatin 40 mg tablet See Rx Instructions .Route 10/18/23 .COMPLEX #90 tabs warfarin 3 mg tablet See Rx Instructions .Route 10/27/23 .COMPLEX #90 tabs ferrous sulfate 325 mg (65 mg See Rx Instructions .Route 11/15/23 iron) tablet (FeroSul) .COMPLEX #60 tabs magnesium oxide 400 mg (241.3 mg See Rx Instructions .Route 11/15/23 magnesium) tablet .COMPLEX #180 tabs Walker with 4 wheels and a seat #1 ea 12/09/23 warfarin 5 mg tablet 5 mg PO DAILY #90 tabs 02/23/24 methocarbamol 750 mg tablet 750 mg PO Q6H PRN spasms #20 tabs 02/26/24 tamsulosin 0.4 mg capsule See Rx Instructions .Route 03/08/24 .COMPLEX #60 caps warfarin 4 mg tablet See Rx Instructions .Route 03/20/24 .COMPLEX #90 tabs Repairs for Walker with 4 wheels #1 ea 04/09/24 and seat digoxin 125 mcg (0.125 mg) tablet See Rx Instructions .Route 04/17/24 .COMPLEX #30 tabs sennosides 8.6 mg tablet (senna) See Rx Instructions .Route 04/17/24 .COMPLEX #60 tabs alprazolam 0.5 mg tablet 0.5 mg PO BID PRN anxiety #60 tabs 05/08/24 metoprolol tartrate 25 mg tablet See Rx Instructions .Route 06/04/24 .COMPLEX #90 tabs lidocaine HCl 2 % mucosal solution 10 ml mucous membrane DAILY PRN 06/05/24 (Lidocaine Viscous) pain #100 mL lactulose 10 gram/15 mL oral See Rx Instructions .Route 06/18/24 solution .COMPLEX #300 mL diclofenac sodium 75 mg 75 mg PO Q12H PRN pain #20 tabs 06/22/24 tablet,delayed release prednisone 20 mg tablet 20 mg PO TID #15 tabs 06/22/24 Allergies Allergy/AdvReac Type Severity Reaction Status Date / Time clindamycin Allergy Unknown Unknown Verified 04/23/24 13:55 butorphanol Allergy Unknown Verified 04/23/24 13:55 gabapentin Allergy ADR-Halluci Verified 04/23/24 13:55 nating methadone Allergy Unknown Verified 04/23/24 13:55 nalbuphine Allergy Unknown Verified 04/23/24 13:55 pentazocine Allergy Unknown Verified 04/23/24 13:55 Review of Systems Const: Denies: fever(s) or chills Card: Denies: chest pain Resp: Denies: dyspnea GI: Denies: abdominal pain : Denies: dysuria, urinary frequency or urinary urgency Musc: Denies: neck pain or back pain Skin/Breast: Denies: rash PFSH ED PFSH: Medical History Hyperlipemia Coronary artery disease [facility] in 04/2020- mild CAD lesion circumflex NSTEMI (non-ST elevated myocardial infarction) Anxiety BPH (benign prostatic hyperplasia) -on Flomax Atrial fibrillation This is not confirmed in his old records but patient believes this is the reason he is on digoxin when asked. Congestive heart failure Echocardiogram April 2020 demonstrated preserved ejection fraction, mechanical prosthetic valve aortic Hypertension -VSS; continue to monitor -continue oral antihypertensives Transient ischemic attack Anemia GI bleed Chronic back pain Arthritis Surgical History History of amputation of left great toe Partial with reattachment surgically History of knee surgery History of hernia repair Previous back surgery Hx of appendectomy Aortic valve replaced -Mechanical. On anticoagulation. -Subtherapeutic INRs will need bridging with therapeutic Lovenox for a few days Family History Mother Cancer Grandmother Cancer Family/Other Diabetes Other Congenital heart disease Denies family history of CAD (coronary artery disease) Clotting disorder Dementia Chronic kidney disease (CKD) Suicide Anesthesia complication Bleeding disorder Lung disease Stroke Social History Smoking and tobacco/nicotine status: former use of tobacco/nicotine Alcohol intake: current Alcohol intake frequency: 0-2 Drinks per Day Alcohol type: beer Substance/Drug Use: never Physical Exam Const: COMMON NORMALS: no acute distress GENERAL APPEARANCE: cooperative and comfortable ORIENTATION/CONSCIOUSNESS: Yes awake, Yes oriented to person, Yes oriented to place and Yes oriented to time HENMT: COMMON NORMALS: normocephalic, atraumatic and hearing grossly normal bilaterally HEAD & SCALP: normocephalic and atraumatic Resp: COMMON NORMALS: normal respiratory effort, No retractions and No use of accessory muscles Extremity: COMMON NORMALS: normal to inspection, capillary refill normal and no calf tenderness OTHER: Swelling in the wrist and distally to the hand neurovascularly intact no redness no erythema painful to light touch Neuro: SENSORIUM/ORIENTATION: Yes oriented to person, Yes oriented to place and Yes oriented to time Skin: COMMON NORMALS: no rashes or lesions noted GENERAL SKIN EXAM: no rashes or lesions noted Course Vital Signs: Vital signs: Vital Signs Temperature 97.1 F L 06/22/24 05:46 Pulse Rate 76 06/22/24 08:59 Respiratory Rate 18 06/22/24 05:46 Blood Pressure 145/73 06/22/24 08:59 Pulse Oximetry 92 06/22/24 08:59 MDM - Extremity (Nontraumatic) Medical Decision Making 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 Is not reddened but is exquisitely tender even to light touch we will start the patient on steroids and anti-inflammatories have him follow-up with his primary care return if he has further problems Medical Records I reviewed the patient's medical records. Lab Data I reviewed the patient's lab results. 06/22/24 06:10 06/22/24 06:10 Radiology Impressions Wrist X-Ray 06/22/24 05:51 IMPRESSION: 1. No acute findings. 2. Degenerative changes with chondrocalcinosis. Laboratory Results WBC 6.59 10^3/uL (3.29-11.43) 06/22/24 06:10 RBC 4.32 10^6/uL (3.85-5.65) 06/22/24 06:10 Hgb 12.40 g/dL (11.27-16.99) 06/22/24 06:10 Hct 37.6 % (37-53) 06/22/24 06:10 MCV 87.0 fl (82-101) 06/22/24 06:10 MCH 28.7 pg (27-33) 06/22/24 06:10 MCHC 33.0 g/dL (30-55) 06/22/24 06:10 RDW 12.2 % (12.1-15.1) 06/22/24 06:10 Plt Count 204 10^3/cmm (157-399) 06/22/24 06:10 MPV 9.5 fL (7.4-10.4) 06/22/24 06:10 Neut % (Auto) 73.8 % 06/22/24 06:10 Lymph % (Auto) 11.2 % 06/22/24 06:10 Mccracken % (Auto) 11.8 % 06/22/24 06:10 Eos % (Auto) 2.3 % 06/22/24 06:10 Baso % (Auto) 0.6 % 06/22/24 06:10 Neut # (Auto) 4.86 10^3/uL (1.8-7.7) 06/22/24 06:10 Lymph # (Auto) 0.7 10^3/uL (0.8-4.8) L 06/22/24 06:10 Mccracken # (Auto) 0.8 10^3/uL (0.2-0.9) 06/22/24 06:10 Eos # (Auto) 0.2 10^3/uL (0.0-0.8) 06/22/24 06:10 Baso # (Auto) 0.0 10^3/uL (0.0-0.1) 06/22/24 06:10 Nucleated RBC % (auto) 0 % 06/22/24 06:10 Nucleated RBCs # 0.0 /100WBC 06/22/24 06:10 ESR 37 mm/hr (0-10) H 06/22/24 06:10 Sodium 133 mmol/L (136-145) L 06/22/24 06:10 Potassium 4.2 mmol/L (3.5-5.1) 06/22/24 06:10 Chloride 94 mmol/L (98-107) L 06/22/24 06:10 Carbon Dioxide 29 mmol/L (22-29) 06/22/24 06:10 Anion Gap 14.2 (5-19) 06/22/24 06:10 BUN 12 mg/dL (8-23) 06/22/24 06:10 Creatinine 0.6 mg/dL (0.7-1.2) L 06/22/24 06:10 GFR Calculation Not Reportable 06/22/24 06:10 Glucose 135 mg/dL (65-115) H 06/22/24 06:10 Calculated Osmolality 278 mOsm/kg (285-295) L 06/22/24 06:10 Calcium 8.5 mg/dL (8.5-10.5) 06/22/24 06:10 Total Bilirubin 0.5 mg/dL (0.15-1.2) 06/22/24 06:10 AST 28 U/L (0-40) 06/22/24 06:10 ALT 19 U/L (0-41) 06/22/24 06:10 Alkaline Phosphatase 106 U/L (40-130) 06/22/24 06:10 C-Reactive Protein 27.7 mg/L (0.0-4.9) H 06/22/24 06:10 Total Protein 7.6 g/dL (6.6-8.7) 06/22/24 06:10 Albumin 3.8 g/dL (3.5-5.2) 06/22/24 06:10 Globulin 3.8 g/dL (1.3-4.6) 06/22/24 06:10 All radiology interpretation(s) finalized by discharge Discharge Plan Discharge Patient Disposition: Home Clinical Impression: Arthralgia of right wrist Condition: Stable Prescriptions: New prednisone 20 mg tablet 20 mg PO TID Qty: 15 0RF Rx Instructions: 1 p.o. 3 times daily x3 days, 1 p.o. twice daily x2 days, 1 p.o. daily x2 days diclofenac sodium 75 mg tablet,delayed release (DR/EC) 75 mg PO Q12H PRN (Reason: pain) Qty: 20 0RF Discontinued Naprosyn 500 mg tablet 500 mg PO BID PRN (Reason: pain) Qty: 30 3RF No Action hydromorphone [Dilaudid] 4 mg tablet 4 mg PO Q4H PRN (Reason: BREATH THROUGH PAIN) morphine 200 mg tablet extended release 200 mg PO Q12H Rx Instructions: qam and qhs tamsulosin 0.4 mg capsule See Rx Instructions .ROUTE .COMPLEX Qty: 60 10RF Dose Instruction: TAKE ONE CAPSULE BY MOUTH EVERY EVENING Rx Instructions: TAKE TWO CAPSULEs BY MOUTH EVERY EVENING (DME) Repairs for Walker with 4 wheels and seat See Rx Instructions .Route .MEDSUPPLY Qty: 1 0RF Rx Instructions: Needs brakes repaired. (DME) Walker with 4 wheels and a seat See Rx Instructions .Route .MEDSUPPLY Qty: 1 0RF Rx Instructions: As directed warfarin 5 mg tablet 5 mg PO DAILY Qty: 90 0RF Protocol: Dose Management Condition: Tuesday Dose/Route: 5 mg Instruction: 1 x 5 mg tablet Condition: Tuesday Dose/Route: 5 mg Instruction: 1 x 5 mg tablet Condition: Tuesday Dose/Route: 5 mg Instruction: 1 x 5 mg tablet Condition: Tuesday Dose/Route: 5 mg Instruction: 1 x 5 mg tablet Condition: Dose/Route: 5 mg Instruction: 1 x 5 mg tablet Condition: Tuesday Dose/Route: 5 mg Instruction: 1 x 5 mg tablet Condition: Tuesday Dose/Route: 5 mg Instruction: 1 x 5 mg tablet Protocol Text: Adjustment Start Date: Tuesday06/19/24 INR Value: 3.4 INR Date: 06/19/24 Recheck Date: 06/26/24 Rx Instructions: 5mg Tuesday and albuterol sulfate [ProAir HFA] 90 mcg/actuation HFA aerosol inhaler 2 puff inhalation Q6H PRN (Reason: shortness of breath or wheezing) Qty: 8.5 6RF nitroglycerin [Nitrostat] 0.4 mg tablet, sublingual 0.4 mg SUBLINGUAL Q5M PRN (Reason: Chest Pain) Qty: 60 3RF potassium chloride [Klor-Con 10] 10 mEq tablet extended release 10 meq PO DAILY Qty: 30 6RF atorvastatin 40 mg tablet See Rx Instructions .ROUTE .COMPLEX Qty: 90 3RF Dose Instruction: TAKE 1 TABLET BY MOUTH EVERY DAY Rx Instructions: TAKE 1 TABLET BY MOUTH EVERY DAY warfarin 3 mg tablet See Rx Instructions .ROUTE .COMPLEX Qty: 90 2RF Protocol: Dose Management Condition: Tuesday Dose/Route: 5 mg Instruction: 1 x 5 mg tablet Condition: Tuesday Dose/Route: 5 mg Instruction: 1 x 5 mg tablet Condition: Tuesday Dose/Route: 5 mg Instruction: 1 x 5 mg tablet Condition: Tuesday Dose/Route: 5 mg Instruction: 1 x 5 mg tablet Condition: Dose/Route: 5 mg Instruction: 1 x 5 mg tablet Condition: Tuesday Dose/Route: 5 mg Instruction: 1 x 5 mg tablet Condition: Tuesday Dose/Route: 5 mg Instruction: 1 x 5 mg tablet Protocol Text: Adjustment Start Date: Tuesday06/19/24 INR Value: 3.4 INR Date: 06/19/24 Recheck Date: 06/26/24 Dose Instruction: TAKE 1 TABLET BY MOUTH EVERY DAY ON TUESDAY, TUESDAY, TUESDAY AND TUESDAY Rx Instructions: TAKE 1 TABLET BY MOUTH EVERY DAY ON TUESDAY, TUESDAY, TUESDAY AND TUESDAY magnesium oxide 400 mg (241.3 mg magnesium) tablet See Rx Instructions .ROUTE .COMPLEX Qty: 180 3RF Dose Instruction: TAKE 1 TABLET BY MOUTH TWO TIMES DAILY Rx Instructions: TAKE 1 TABLET BY MOUTH TWO TIMES DAILY FeroSul 325 mg (65 mg iron) tablet See Rx Instructions .ROUTE .COMPLEX Qty: 60 10RF Dose Instruction: TAKE 1 TABLET BY MOUTH TWO TIMES DAILY Rx Instructions: TAKE 1 TABLET BY MOUTH TWO TIMES DAILY warfarin 4 mg tablet See Rx Instructions .ROUTE .COMPLEX Qty: 90 3RF Protocol: Dose Management Condition: Tuesday Dose/Route: 5 mg Instruction: 1 x 5 mg tablet Condition: Tuesday Dose/Route: 5 mg Instruction: 1 x 5 mg tablet Condition: Tuesday Dose/Route: 5 mg Instruction: 1 x 5 mg tablet Condition: Tuesday Dose/Route: 5 mg Instruction: 1 x 5 mg tablet Condition: Dose/Route: 5 mg Instruction: 1 x 5 mg tablet Condition: Tuesday Dose/Route: 5 mg Instruction: 1 x 5 mg tablet Condition: Tuesday Dose/Route: 5 mg Instruction: 1 x 5 mg tablet Protocol Text: Adjustment Start Date: Tuesday06/19/24 INR Value: 3.4 INR Date: 06/19/24 Recheck Date: 06/26/24 Dose Instruction: TAKE 1 TABLET BY MOUTH DIRECTED Rx Instructions: TAKE 1 TABLET BY MOUTH DIRECTED sennosides [senna] 8.6 mg tablet See Rx Instructions .ROUTE .COMPLEX Qty: 60 8RF Dose Instruction: TAKE 1 TO 2 TABLETS BY MOUTH EVERY 6 HOURS NEEDED FOR CONSTIPATION Rx Instructions: TAKE 1 TO 2 TABLETS BY MOUTH EVERY 6 HOURS NEEDED FOR CONSTIPATION digoxin 125 mcg (0.125 mg) tablet See Rx Instructions .ROUTE .COMPLEX Qty: 30 9RF Dose Instruction: TAKE 1 TABLET BY MOUTH EVERY MORNING Rx Instructions: TAKE 1 TABLET BY MOUTH EVERY MORNING alprazolam 0.5 mg tablet 0.5 mg PO BID PRN (Reason: anxiety) Qty: 60 3RF metoprolol tartrate 25 mg tablet See Rx Instructions .ROUTE .COMPLEX Qty: 90 3RF Dose Instruction: TAKE 1 TABLET BY MOUTH EVERY DAY NEEDED FOR BLOOD PRESSURE DO NOT FILL UNLESS THEY ASK FOR IT Rx Instructions: TAKE 1 TABLET BY MOUTH EVERY DAY NEEDED FOR BLOOD PRESSURE DO NOT FILL UNLESS THEY ASK FOR IT lactulose 10 gram/15 mL solution See Rx Instructions .ROUTE .COMPLEX Qty: 300 5RF Dose Instruction: TAKE 3 TEASPOONFULS (15ML) BY MOUTH TWO TIMES DAILY NEEDED FOR CONSTIPATION Rx Instructions: TAKE 3 TEASPOONFULS (15ML) BY MOUTH TWO TIMES DAILY NEEDED FOR CONSTIPATION methocarbamol 750 mg tablet 750 mg PO Q6H PRN (Reason: spasms) Qty: 20 0RF ondansetron HCl 4 mg tablet 4 mg PO Q6H PRN (Reason: Nausea And Vomiting) lidocaine HCl [Lidocaine Viscous] 2 % solution 10 ml mucous membrane DAILY PRN (Reason: pain) Qty: 100 0RF Discharge Orders: Discharge ED (Routine); Ordered 06/22/24 Ordered By: Wesley Bernal Referrals: Jesus Nguyen MD [Primary Care Provider] - Discharge Diet: Usual diet Discharge Activity: Increase activity as tolerated Patient Instructions: Opioid Safety, Pain Management Activity Restrictions/Additional Instructions: Thank you for choosing [facility] for your healthcare needs today. It is very important that you follow up as instructed or that you return to the Emergency Department should you have concerns or if your condition changes or worsens in any way. You are seen in the emergency room with complaint of right wrist pain x-ray did not show any acute fracture. Your laboratory test did not show significant abnormality. You are given a steroids and inflamed and prescription for steroid taper to again tomorrow as well as for other and anti-inflammatories do not take Naprosyn instead use the diclofenac. Symptoms or not improving follow-up with primary care doctor for further evaluation Coding Level of Care Code ED Modular Set Crew Member for Adela Domingo
[2024-06-22 06:20] LABS: Basophils % 0.6 %; Eosinophils # 0.2 10^3/uL (0.0-0.8); Eosinophils % 2.3 %; Hematocrit 37.6 % (37-53); Lymphocytes # 0.7 10^3/uL (0.8-4.8); Lymphocytes % 11.2 %; Mean Corpuscular Hemoglobin 28.7 pg (27-33); Mean Platelet Volume 9.5 fL (7.4-10.4); Monocytes # 0.8 10^3/uL (0.2-0.9); Monocytes % 11.8 %; Neutrophils # 4.86 10^3/uL (1.8-7.7); Neutrophils % 73.8 %; Nucleated Red Blood Cells % 0 %; Platelet Count 204 10^3/cmm (157-399); Red Blood Count 4.32 10^6/uL (3.85-5.65); Red Cell Distribution Width 12.2 % (12.1-15.1); White Blood Count 6.59 10^3/uL (3.29-11.43)
[2024-06-22 06:34] LABS: Erythrocyte Sedimentation Rate 37 mm/hr (0-10)
[2024-06-22 06:35] LABS: Alanine Aminotransferase 19 U/L (0-41); Albumin Level 3.8 g/dL (3.5-5.2); Alkaline Phosphatase 106 U/L (40-130); Anion Gap 14.2 (5-19); Aspartate Amino Transferase 28 U/L (0-40); Blood Urea Nitrogen 12 mg/dL (8-23); C Reactive Protein 27.7 mg/L (0.0-4.9); Calcium 8.5 mg/dL (8.5-10.5); Carbon Dioxide 29 mmol/L (22-29); Chloride 94 mmol/L (98-107); Creatinine Clr Calc Pharmacy 105.2361; Globulin 3.8 g/dL (1.3-4.6); Glucose 135 mg/dL (65-115); Osmolality Calculated 278 mOsm/kg (285-295); Potassium 4.2 mmol/L (3.5-5.1); Sodium 133 mmol/L (136-145); Total Bilirubin 0.5 mg/dL (0.15-1.2); Total Protein 7.6 g/dL (6.6-8.7)
[2024-06-22] MEDS: ketorolac 30 mg/mL INJ 15 MG IVP (07:15)
[2024-06-22] MEDS: dexamethasone 10 mg/mL INJ IM (07:18)
[2024-06-22 07:49] VITALS: BP 137/76; PULSE 84; O2SAT 93
[2024-06-22 08:59] VITALS: BP 145/73; PULSE 76; O2SAT 92
== END 2024-06-22 09:00 | disposition home or self-care (01) ==
PROVIDERS: Emergency Provider Family Medicine; PCP Family Medicine
DX: M25.531 Pain in right wrist (principal); Z79.01 Long term (current) use of anticoagulants; Z87.891 Personal history of nicotine dependence; Z95.2 Presence of prosthetic heart valve; E78.5 Hyperlipidemia, unspecified; I11.0 Hypertensive heart disease with heart failure; I50.30 Unspecified diastolic (congestive) heart failure; I25.10 Atherosclerotic heart disease of native coronary artery without angina pectoris
CPT/HCPCS: 73110; 80053; 85025; 85651; 86140; 96374; 99284; J1100; J1885

== ENCOUNTER → 2024-06-25 13:37 | Outpatient (BNVA) | payer MEDICARE, MEDICAID, SELFPAY | PROVIDERS: PCP Family Medicine; Visit Provider Podiatrist Foot & Ankle Surgery | DX: L84 Corns and callosities (principal); M20.41 Other hammer toe(s) (acquired), right foot | CPT/HCPCS: 99213 ==

== ENCOUNTER → 2024-07-10 16:06 | Outpatient (BNVA) | payer MEDICARE, MEDICAID, SELFPAY | PROVIDERS: PCP Family Medicine; Visit Provider Family Medicine | DX: M25.50 Pain in unspecified joint (principal); R03.0 Elevated blood-pressure reading, without diagnosis of hypertension | CPT/HCPCS: 84550; 85651; 86038; 86141; 86431 ==

== ENCOUNTER → 2024-09-03 13:49 | Outpatient (BNVA) | payer MEDICARE, MEDICAID, SELFPAY | PROVIDERS: PCP Family Medicine; Visit Provider Podiatrist Foot & Ankle Surgery | DX: L84 Corns and callosities (principal); M20.41 Other hammer toe(s) (acquired), right foot; L60.3 Nail dystrophy; I73.9 Peripheral vascular disease, unspecified | CPT/HCPCS: 99213 ==

== ENCOUNTER → 2024-09-28 10:07 | Outpatient (BNVA) | payer MEDICARE, MEDICAID, SELFPAY | PROVIDERS: PCP Family Medicine; Visit Provider Family Medicine | DX: R30.0 Dysuria (principal) | CPT/HCPCS: 87491; 87591; 87661 ==

== ENCOUNTER → 2025-04-18 13:12 | Outpatient (BNVA) | payer MEDICARE, MEDICAID, SELFPAY | PROVIDERS: PCP Family Medicine; Visit Provider Family Medicine | DX: R05.3 Chronic cough (principal) | CPT/HCPCS: 87070; 87205 ==

== ENCOUNTER 2025-05-10 10:50 | Outpatient (CLI) | payer MEDICARE, MEDICAID, SELFPAY ==
--- NOTE | 2025-05-10 11:03 | XR_ITS ---
WS: [email or web address] Exam: XR lumbar spine 6V w f/e [id number] Date/Time of Exam: 05/10/2025 11:03 AM Reason For Exam: Lumbar radiculopathy DLP: Comparison 03/08/2018. 5 mm degenerative retrolisthesis of L3 on L4 essentially unchanged. Advanced disc degeneration at all levels. Spondylosis. Facet arthropathy at all levels but most marked at L4-5 and L5-S1. No acute fracture. No significant flexion or extension instability. Levoscoliosis. Old compression fracture of T11 has been treated with vertebroplasty. Constipation. XR/XR lumbar spine 6V w f/e [id number] IMPRESSION: 1. 5 mm degenerative retrolisthesis of L3 on L4 essentially unchanged. No addit ional instability identified with flexion or extension. 2. Advanced degenerative changes, scoliosis and osteopenia.
--- NOTE | 2025-05-10 11:03 | XR_ITS ---
WS: [email or web address] Exam: XR thoracic spine 3V* [id number] Date/Time of Exam: 05/10/2025 11:03 AM Reason For Exam: Thoracic back pain No acute fracture or malalignment identified. Old low-grade nondisplaced fracture of T11 noted which has been treated with vertebroplasty. Moderately advanced degenerative changes of spondylosis and disc calcification. Mild dextroscoliosis. Osteopenia. Normal paraspinal soft tissues. XR/XR thoracic spine 3V* [id number] IMPRESSION: 1. No acute fracture or malalignment. 2. Old low-grade nondisplaced T11 fracture has been treated with vertebroplasty . 3. Moderate degenerative changes, mild scoliosis.
== END 2025-05-10 10:51 | disposition home or self-care (01) ==
LOC: RAD 10:54
PROVIDERS: PCP Family Medicine; Visit Provider Family Medicine
DX: M54.6 Pain in thoracic spine (principal); M54.16 Radiculopathy, lumbar region
CPT/HCPCS: 72072; 72114

== ENCOUNTER → 2025-05-13 14:46 | Outpatient (BNVA) | payer MEDICARE, MEDICAID, SELFPAY | PROVIDERS: PCP Family Medicine; Visit Provider Family Medicine | DX: Z00.00 Encounter for general adult medical examination without abnormal findings (principal); E53.8 Deficiency of other specified B group vitamins; Z13.6 Encounter for screening for cardiovascular disorders; Z51.81 Encounter for therapeutic drug level monitoring; E55.9 Vitamin D deficiency, unspecified | CPT/HCPCS: 80053; 80061; 82306; 82607; 83036; 85025 ==

== ENCOUNTER → 2025-05-15 11:26 | Outpatient (BNVA) | payer MEDICARE, MEDICAID, SELFPAY | PROVIDERS: PCP Family Medicine; Visit Provider Internal Medicine Cardiovascular Disease | DX: I48.0 Paroxysmal atrial fibrillation (principal); Z79.01 Long term (current) use of anticoagulants; I11.0 Hypertensive heart disease with heart failure; I50.30 Unspecified diastolic (congestive) heart failure; E78.5 Hyperlipidemia, unspecified; I25.10 Atherosclerotic heart disease of native coronary artery without angina pectoris; Z95.2 Presence of prosthetic heart valve; Z87.891 Personal history of nicotine dependence; I25.2 Old myocardial infarction; R07.9 Chest pain, unspecified; I44.0 Atrioventricular block, first degree | CPT/HCPCS: 93005; 99214 ==

== ENCOUNTER 2025-05-23 09:36 | Inpatient (IN) | payer OTHER, MEDICARE, SELFPAY ==
[2025-05-23] VITALS (17 sets, daily range): BP systolic 135–173; BP diastolic 50–69; PULSE 38–65; RESP 17–22; TEMP 36.2–36.8; O2SAT 95–98; BMI 30.8
--- NOTE | 2025-05-23 09:43 | ECG_ITS ---
[facility] Date: 2025-05-23 Pat Name: Andrea Hebert Department: Room: Gender: Male [employer] Operator: : 1950 Requested By: Cirilo Rubalcava Order Number: [id number] Dana MD: NOLAN CANELA Measurements Intervals [place] Rate: 48 P: 0 MS: 0 QRS: 6 QRSD: 144 T: 37 QT: 443 QTc: 397 Interpretive Statements SINUS RHYTHM WITH HIGH GRADE AV BLOCK RIGHT BUNDLE BRANCH BLOCK [120+ ms QRS DURATION, UPRIGHT V1, 40+ ms S IN I/aVL/V4/V5/V6] CRITICAL TEST RESULT Compared to ECG 05/15/2025 11:31:12 Right bundle-branch block now present First degree AV block no longer present Left bundle-branch block no longer present Electronically Signed On 05-23-2025 16:48:37 CDT by NOLAN CANELA [email or web address]
--- NOTE | 2025-05-23 09:43 | XRR_ITS ---
PROCEDURE INFORMATION: Exam: XR Chest Exam date and time: 05/23/2025 10:23 AM Age: 74 years old Clinical indication: Chest wall pain; Prior surgery; Surgery date: 6+ months; Surgery type: Open heart; Additional info: Cp TECHNIQUE: Imaging protocol: Radiologic exam of the chest. Views: 1 view. COMPARISON: CR XR chest 1V portable [id number] 06/05/2024 10:39 PM FINDINGS: Lungs: Unremarkable. No consolidation. Pleural spaces: Unremarkable. No pleural effusion. No pneumothorax. Heart/Mediastinum: Unremarkable. No cardiomegaly. Bones/joints: Lower thoracic kyphoplasty. Median sternotomy. XR/XR chest 1V portable [id number] IMPRESSION: No acute findings.
--- NOTE | 2025-05-23 10:00 | W.ED.ARRPALP ---
HPI - Arrhythmia/Palpitations General: Chief Complaint: Arrhythmia/Palpitations Stated Complaint: low hr Source: patient Mode of arrival: ambulatory Limitations: no limitations History of Present Illness: 74-year-old male who states that he has been having low heart rate over the last 2 days states his heart rates been in the 40s. He is on Coumadin and digoxin for intermittent atrial fibs. He also has a history of heart failure. Patient states he had some slight weakness and fatigue he denies any vomiting diarrhea chest pain or shortness of breath. Denies any fevers Related Data Home Medications ?Medication ?Instructions ?Recorded ?Confirmed ondansetron HCl 4 mg tablet 4 mg PO Q6H PRN Nausea And Vomiting 07/26/23 05/13/25 Previous Rx's ?Medication ?Instructions ?Recorded albuterol sulfate 90 mcg/actuation 2 puff inhalation Q6H PRN 09/08/22 aerosol inhaler (ProAir HFA) shortness of breath or wheezing #8.5 grams warfarin 3 mg tablet See Rx Instructions .Route 10/27/23 .COMPLEX #90 tabs Walker with 4 wheels and a seat #1 ea 12/09/23 methocarbamol 750 mg tablet 750 mg PO Q6H PRN spasms #20 tabs 02/26/24 metoprolol tartrate 25 mg tablet See Rx Instructions .Route 06/04/24 .COMPLEX #90 tabs lidocaine HCl 2 % mucosal solution 10 ml mucous membrane DAILY PRN 06/05/24 (Lidocaine Viscous) pain #100 mL lactulose 10 gram/15 mL oral See Rx Instructions .Route 06/18/24 solution .COMPLEX #300 mL diclofenac sodium 75 mg 75 mg PO Q12H PRN pain #20 tabs 06/22/24 tablet,delayed release warfarin 5 mg tablet 5 mg PO DAILY #90 tabs 08/21/24 ketoconazole 2 % shampoo 1 applic topical Q7D #120 mL 09/24/24 nystatin 100,000 unit/gram topical 1 applic topical BID #30 grams 09/24/24 cream triamcinolone acetonide 0.1 % 1 applic topical DAILY #30 grams 09/24/24 topical cream potassium chloride 10 mEq 10 meq PO DAILY #90 tabs 10/18/24 tablet,extended release (Klor-Con) atorvastatin 40 mg tablet See Rx Instructions .Route 12/20/24 .COMPLEX #90 tabs magnesium oxide 400 mg (241.3 mg See Rx Instructions .Route 12/21/24 magnesium) tablet .COMPLEX #180 tabs sennosides 8.6 mg tablet (senna) See Rx Instructions .Route 03/22/25 .COMPLEX #60 tabs tamsulosin 0.4 mg capsule See Rx Instructions .Route 04/12/25 .COMPLEX #60 caps warfarin 4 mg tablet See Rx Instructions .Route 04/16/25 .COMPLEX #90 tabs nitroglycerin 0.4 mg sublingual 0.4 mg sublingual Q5M PRN Chest 04/19/25 tablet (Nitrostat) Pain #60 tabs hydromorphone 4 mg tablet 4 mg PO Q6H PRN BREATH THROUGH 04/22/25 (Dilaudid) PAIN 30 days #120 tabs morphine 60 mg tablet,extended 60 mg PO Q12H 30 days #60 tabs 04/22/25 release digoxin 125 mcg (0.125 mg) tablet See Rx Instructions .Route 05/07/25 .COMPLEX #30 tabs Repairs for Walker with 4 wheels #1 ea 05/13/25 and seat linaclotide 145 mcg capsule 145 mcg PO DAILY #30 caps 05/13/25 alprazolam 0.5 mg tablet 0.5 mg PO BID PRN anxiety #60 tabs 05/17/25 Allergies Allergy/AdvReac Type Severity Reaction Status Date / Time clindamycin Allergy Unknown Unknown Verified 05/15/25 10:36 butorphanol Allergy Unknown Verified 05/15/25 10:36 gabapentin Allergy ADR-Halluci Verified 05/15/25 10:36 nating methadone Allergy Unknown Verified 05/15/25 10:36 nalbuphine Allergy Unknown Verified 05/15/25 10:36 pentazocine Allergy Unknown Verified 05/15/25 10:36 Review of Systems Const: Reports: malaise [facility] PFSH: Medical History (Updated 05/23/25 @ 10:54 by Cirilo Rubalcava MD) Hyperlipemia Coronary artery disease [facility] in 04/2020- mild CAD lesion circumflex NSTEMI (non-ST elevated myocardial infarction) Anxiety BPH (benign prostatic hyperplasia) -on Flomax Atrial fibrillation This is not confirmed in his old records but patient believes this is the reason he is on digoxin when asked. Congestive heart failure Echocardiogram April 2020 demonstrated preserved ejection fraction, mechanical prosthetic valve aortic Hypertension -VSS; continue to monitor -continue oral antihypertensives Transient ischemic attack Anemia GI bleed Chronic back pain Arthritis Surgical History History of amputation of left great toe Partial with reattachment surgically History of knee surgery History of hernia repair Previous back surgery Hx of appendectomy Aortic valve replaced -Mechanical. On anticoagulation. -Subtherapeutic INRs will need bridging with therapeutic Lovenox for a few days Family History Mother Cancer Grandmother Cancer Family/Other Diabetes Brother BPH (benign prostatic hyperplasia) Other Congenital heart disease Denies family history of CAD (coronary artery disease) Clotting disorder Dementia Chronic kidney disease (CKD) Suicide Anesthesia complication Bleeding disorder Lung disease Stroke Social History Smoking and tobacco/nicotine status: former use of tobacco/nicotine Alcohol intake: current Alcohol intake frequency: 0-2 Drinks per Day Alcohol type: beer Substance/Drug Use: never Physical Exam Const: COMMON NORMALS: no acute distress, patient oriented x3 and healthy appearing HENMT: COMMON NORMALS: normocephalic and atraumatic HEAD & SCALP: normocephalic and atraumatic Eye: COMMON NORMALS: Equal, round and reactive pupils present and EOMs intact bilaterally PUPIL: Yes Equal, round and reactive pupils present Neck/C-Spine: COMMON NORMALS: full ROM and supple Chest: COMMONS NORMALS: normal inspection of the chest and normal palpation of entire chest wall Resp: COMMON NORMALS: normal respiratory effort, No retractions, No use of accessory muscles and clear to auscultation bilaterally AUSCULTATION: clear to auscultation bilaterally Cardio: COMMON NORMALS: regular rhythm and No murmurs present (Cardio) RATE: bradycardic RHYTHM: regular rhythm GI: COMMON NORMALS: Normal to inspection, nondistended, normoactive bowel sounds present, Soft to palpation, non-tender and no masses PALPATION: Yes Soft to palpation Extremity: COMMON NORMALS: normal to inspection and full ROM Neuro: COMMON NORMALS: patient oriented x3, moves all extremities and no focal motor deficits Psych: COMMON NORMALS: mental status grossly normal, Normal thought process present and cooperative THOUGHT PROCESS: Normal thought process present Skin: COMMON NORMALS: no rashes or lesions noted and no wounds GENERAL SKIN EXAM: no rashes or lesions noted Course Vital Signs: Vital signs: Vital Signs Temperature 98.3 F 05/23/25 09:37 Pulse Rate 43 L 05/23/25 10:30 Respiratory Rate 17 05/23/25 10:30 Blood Pressure 137/50 05/23/25 10:30 Pulse Oximetry 98 05/23/25 10:30 Oxygen Delivery Me thod Room Air 05/23/25 09:37 MDM - Arrhythmia/Palpitations Medical Decision Making Patient presents here with bradycardia along with some fatigue. Differential included ACS, digoxin toxicity, arrhythmias. Patient's digoxin level here is low it is not elevated he has no chest pain no signs of acute coronary syndrome. His EKG here did show bradycardia with possible AV block. I did speak to executive vice president of sales Dr. Isaacs and went over EKG with him and he stated that he wanted patient to be admitted for observation to monitor his rhythm at this time. He did not recommend any treatments at this time. His blood pressures here been normal. I did speak to hospitalist Dr. Calloway and will admit to him. I did go over labs EKG and x-ray with patient and that we will admit he understands agrees to plan his chest x-ray here I did review and Sholl no acute abnormality. EKG showed sinus rhythm with high-grade AV block heart rate 48 QRS [address] elevation Medical Records I reviewed the patient's medical records. Lab Data I reviewed the patient's lab results. 05/23/25 09:51 05/23/25 09:51 Laboratory Results WBC 5.94 10^3/uL (3.29-11.43) 05/23/25 09:51 RBC 4.50 10^6/uL (3.85-5.65) 05/23/25 09:51 Hgb 12.60 g/dL (11.27-16.99) 05/23/25 09:51 Hct 39.2 % (37-53) 05/23/25 09:51 MCV 87.1 fl (82-101) 05/23/25 09:51 MCH 28.0 pg (27-33) 05/23/25 09:51 MCHC 32.1 g/dL (30-55) 05/23/25 09:51 RDW 13.1 % (12.1-15.1) 05/23/25 09:51 Plt Count 174 10^3/cmm (157-399) 05/23/25 09:51 MPV 9.9 fL (7.4-10.4) 05/23/25 09:51 Neut % (Auto) 68.4 % 05/23/25 09:51 Lymph % (Auto) 16.0 % 05/23/25 09:51 Logan % (Auto) 12.6 % 05/23/25 09:51 Eos % (Auto) 2.0 % 05/23/25 09:51 Baso % (Auto) 0.5 % 05/23/25 09:51 Neut # (Auto) 4.06 10^3/uL (1.8-7.7) 05/23/25 09:51 Lymph # (Auto) 1.0 10^3/uL (0.8-4.8) 05/23/25 09:51 [place] # (Auto) 0.8 10^3/uL (0.2-0.9) 05/23/25 09:51 Eos # (Auto) 0.1 10^3/uL (0.0-0.8) 05/23/25 09:51 Baso # (Auto) 0.0 10^3/uL (0.0-0.1) 05/23/25 09:51 Nucleated RBC % (auto) 0 % 05/23/25 09:51 Nucleated RBCs # 0.0 /100WBC 05/23/25 09:51 Sodium 135 mmol/L (136-145) L 05/23/25 09:51 Potassium 4.2 mmol/L (3.5-5.1) 05/23/25 09:51 Chloride 97 mmol/L (98-107) L 05/23/25 09:51 Carbon Dioxide 28 mmol/L (22-29) 05/23/25 09:51 Anion Gap 14.2 (5-19) 05/23/25 09:51 BUN 26 mg/dL (8-23) H 05/23/25 09:51 Creatinine 0.8 mg/dL (0.7-1.2) 05/23/25 09:51 GFR Calculation Not Reportable 05/23/25 09:51 Glucose 164 mg/dL (65-115) H 05/23/25 09:51 Calculated Osmolality 288 mOsm/kg (285-295) 05/23/25 09:51 Calcium 9.0 mg/dL (8.5-10.5) 05/23/25 09:51 Magnesium 1.9 mg/dL (1.7-2.3) 05/23/25 09:51 Total Bilirubin 0.5 mg/dL (0.15-1.2) 05/23/25 09:51 AST 29 U/L (0-40) 05/23/25 09:51 ALT 25 U/L (0-41) 05/23/25 09:51 Alkaline Phosphatase 97 U/L (40-130) 05/23/25 09:51 Troponin T Baseline 47 ng/L (0-15) H 05/23/25 09:51 Total Protein 7.4 g/dL (6.6-8.7) 05/23/25 09:51 Albumin 3.7 g/dL (3.5-5.2) 05/23/25 09:51 Globulin 3.7 g/dL (1.3-4.6) 05/23/25 09:51 Lipase 63 U/L (13-60) H 05/23/25 09:51 Urine Color Yellow (Yellow) 05/23/25 10:16 Urine Appearance Clear (CLEAR) 05/23/25 10:16 Urine pH 5.5 (5-7) 05/23/25 10:16 Ur Specific [place] 1.015 (1.005-1.030) 05/23/25 10:16 Urine Protein Negative (Negative) 05/23/25 10:16 Urine Glucose (UA) Negative (Normal) 05/23/25 10:16 Urine Ketones Negative (Negative) 05/23/25 10:16 Urine Blood Negative (Negative) 05/23/25 10:16 Urine Nitrate Negative (Negative) 05/23/25 10:16 Urine Bilirubin Negative (Negative) 05/23/25 10:16 Urine Urobilinogen 1.0 mg/dL (Negative) 05/23/25 10:16 Ur Leukocyte Esterase Negative (Negative) 05/23/25 10:16 Amorphous Sediment Not Reportable 05/23/25 10:16 Digoxin 0.4 ng/mL (0.6-1.2) L 05/23/25 09:51 All radiology interpretation(s) finalized by discharge EKG Data EKG 1: I personally reviewed and interpreted this EKG as follows: EKG interpretation date: 05/23/25 EKG interpretation time: 09:40 Interpretation: sinus howard hr [address] elevation qrs 144 qtc 409 Discharge Plan Discharge Patient Disposition: Placed in Observation Clinical Impression: Bradycardia Coding Level of Care Code ED P[employer]eder for Adela Domingo
[2025-05-23 10:05] LABS: Hematocrit 39.2 % (37-53); Hemoglobin 12.60 g/dL (11.27-16.99); Mean Corpuscular HGB Conc 32.1 g/dL (30-55); Mean Corpuscular Hemoglobin 28.0 pg (27-33); Mean Corpuscular Volume 87.1 fl (82-101); Nucleated Red Blood Cells % 0 %; Platelet Count 174 10^3/cmm (157-399); Red Blood Count 4.50 10^6/uL (3.85-5.65); White Blood Count 5.94 10^3/uL (3.29-11.43)
[2025-05-23 10:21] LABS: Troponin(5th) Baseline 47 ng/L (0-15)
[2025-05-23 10:22] LABS: Digoxin 0.4 ng/mL (0.6-1.2)
[2025-05-23 10:23] LABS: Alanine Aminotransferase 25 U/L (0-41); Albumin Level 3.7 g/dL (3.5-5.2); Alkaline Phosphatase 97 U/L (40-130); Anion Gap 14.2 (5-19); Aspartate Amino Transferase 29 U/L (0-40); Blood Urea Nitrogen 26 mg/dL (8-23); Calcium 9.0 mg/dL (8.5-10.5); Carbon Dioxide 28 mmol/L (22-29); Chloride 97 mmol/L (98-107); Creatinine Clr Calc Pharmacy 90.6619; Globulin 3.7 g/dL (1.3-4.6); Glucose 164 mg/dL (65-115); Lipase 63 U/L (13-60); Magnesium 1.9 mg/dL (1.7-2.3); Osmolality Calculated 288 mOsm/kg (285-295); Potassium 4.2 mmol/L (3.5-5.1); Sodium 135 mmol/L (136-145); Total Protein 7.4 g/dL (6.6-8.7)
[2025-05-23 10:24] LABS: Add Urine Microscopic? NO
[2025-05-23 10:45] LABS: Glucose Urine UA Negative (Normal); Nitrate Urine Negative (Negative); Specific Gravity, Urine 1.015 (1.005-1.030)
[2025-05-23 10:54] LABS: Charge for UA Resulting for Rev
--- NOTE | 2025-05-23 11:15 | PM.HP ---
Documented by User: Alexis Calloway MD 05/23/25 15:43 Providers/Chief Complaint Admitting Physician: Alexis Calloway Primary Care Provider: Jesus Nguyen MD Chief Complaint: low hr History of Present Illness Andrea Hebert Sr is a 74 year old male with a history of nonobstructive CAD, NSTEMI, recurrent Afib, HTN, HLA admitted for observation of bradycardia after patient reports two days of fatigue and self-HR checks in the 40s. EKG performed in the ED shows complete heart block with junctional escape rhythm. He denies any inciting event and no recent changes to his medications except that he sometimes forgets to take his warfarin. His INR is 1.2 at home. He notes some new chest discomfort that is not sharp, pressure-like, nor crushing. He has not had symptoms like this before. 74-year-old gentleman with history of coronary artery disease (CAD), atrial fibrillation, mechanical aortic valve replacement, anemia, benign prostatic hyperplasia (BPH), chronic back pain, osteoporosis, and spinal spondylosis presents with several days (up to about a week) of low heart rate noted at home with progressive generalized weakness and low energy. Reports home blood pressure/heart rate readings as low as 41?47 beats per minute around 11:30 PM the night prior to presentation. Denies recent illness; no fever. Endorses chronic shortness of breath, and recent chest discomfort described as ?funny/different,? not pressure or pain. Denies recent dizziness or falls; no headaches; denies nausea or vomiting. Reports intermittent chills and night sweats about once or twice a week. Urine sometimes appears orangish; stool sometimes looks black, which he attributes to medications. Notes forgetting one dose of warfarin (Coumadin) the ?night before last.? Has a home health nurse and a caregiver in the mornings; resides at [facility]. INR reportedly 1.2 recently. In the emergency department (ED), triage and monitoring identified bradycardia. A fluid bolus of 1 liter was administered. Patient agrees to full resuscitation if needed (okay with CPR). Medications/Allergies Home Medications ?Medication ?Instructions ?Recorded ?Confirmed ?Last Taken ?Type Walker with 4 wheels and a seat #1 ea 12/09/23 05/23/25 Unknown Rx warfarin 5 mg tablet 5 mg PO DAILY #90 tabs 08/21/24 05/23/25 05/22/25 Rx potassium chloride 10 mEq 10 meq PO DAILY #90 tabs 10/18/24 05/23/25 05/23/25 Rx tablet,extended release (Klor-Con) warfarin 4 mg tablet See Rx Instructions .Route 04/16/25 05/23/25 Unknown Rx .COMPLEX #90 tabs nitroglycerin 0.4 mg sublingual 0.4 mg sublingual Q5M PRN Chest 04/19/25 05/23/25 Unknown Rx tablet (Nitrostat) Pain #60 tabs hydromorphone 4 mg tablet 4 mg PO Q6H PRN BREATH THROUGH 04/22/25 05/23/25 Unknown Rx (Dilaudid) PAIN 30 days #120 tabs morphine 60 mg tablet,extended 60 mg PO Q12H 30 days #60 tabs 04/22/25 05/23/25 05/23/25 Rx release Repairs for Walker with 4 wheels #1 ea 05/13/25 05/23/25 Unknown Rx and seat linaclotide 145 mcg capsule 145 mcg PO DAILY #30 caps 05/13/25 05/23/25 05/23/25 Rx alprazolam 0.5 mg tablet 0.5 mg PO BID PRN anxiety #60 tabs 05/17/25 05/23/25 Unknown Rx atorvastatin 40 mg tablet 40 mg PO QPM 05/23/25 05/23/25 05/22/25 History digoxin 125 mcg (0.125 mg) tablet 125 mcg PO QAM 05/23/25 05/23/25 Unknown History ketoconazole 2 % shampoo 1 applic topical Q7D PRN Skin 05/23/25 05/23/25 Unknown History Irritation magnesium oxide 400 mg (241.3 mg 400 mg PO BID 05/23/25 05/23/25 05/23/25 History magnesium) tablet metoprolol tartrate 25 mg tablet 25 mg PO DAILY PRN bp 05/23/25 05/23/25 Unknown History sennosides 8.6 mg tablet (senna) See Rx Instructions .Route .COMPLEX 05/23/25 05/23/25 Unknown History tamsulosin 0.4 mg capsule 0.8 mg PO QPM 05/23/25 05/23/25 05/22/25 History triamcinolone acetonide 0.1 % 1 applic topical DAILY PRN Skin 05/23/25 05/23/25 Unknown History topical cream Irritation Allergies Allergy/AdvReac Type Severity Reaction Status Date / Time clindamycin Allergy Unknown Unknown Verified 05/15/25 10:36 butorphanol Allergy Unknown Verified 05/15/25 10:36 gabapentin Allergy ADR-Halluci Verified 05/15/25 10:36 nating methadone Allergy Unknown Verified 05/15/25 10:36 nalbuphine Allergy Unknown Verified 05/15/25 10:36 pentazocine Allergy Unknown Verified 05/15/25 10:36 PFSH Acute PFSH: Medical History Bradycardia Hyperlipemia Coronary artery disease [facility] in 04/2020- mild CAD lesion circumflex NSTEMI (non-ST elevated myocardial infarction) Anxiety BPH (benign prostatic hyperplasia) -on Flomax Atrial fibrillation This is not confirmed in his old records but patient believes this is the reason he is on digoxin when asked. Congestive heart failure Echocardiogram April 2020 demonstrated preserved ejection fraction, mechanical prosthetic valve aortic Hypertension Transient ischemic attack Anemia GI bleed Chronic back pain Arthritis Surgical History History of amputation of left great toe Partial with reattachment surgically History of knee surgery History of hernia repair Previous back surgery Hx of appendectomy Aortic valve replaced -Mechanical. On anticoagulation. -Subtherapeutic INRs will need bridging with therapeutic Lovenox for a few days Family History Mother Cancer Grandmother Cancer Family/Other Diabetes Brother BPH (benign prostatic hyperplasia) Other Congenital heart disease Denies family history of CAD (coronary artery disease) Clotting disorder Dementia Chronic kidney disease (CKD) Suicide Anesthesia complication Bleeding disorder Lung disease Stroke Social History Smoking and tobacco/nicotine status: former use of tobacco/nicotine Alcohol intake: current Alcohol intake frequency: 0-2 Drinks per Day Alcohol type: beer Substance/Drug Use: former Date of last use: unknown Former substance use details: former prescription opioid abuse Household members: none Vitals/I&O/Wt Last Vital Signs Temp 98.3 F 05/23/25 09:37 Pulse 43 L 05/23/25 10:30 Resp 17 05/23/25 10:30 BP 137/50 05/23/25 10:30 Pulse Ox 98 05/23/25 10:30 O2 Del Method Room Air 05/23/25 09:37 Weight last 48 hrs Weight 94.801 kg Data 05/23/25 09:51 05/23/25 09:51 A&P Assessment and plan 1. Complete heart block: ED and current evaluations note bradycardia with high-grade AV block; EKG described as bradycardia with high-degree AV block with possible AV dissociation versus second-degree Mobitz type II; later interpretation notes third-degree heart block with right bundle branch block (RBBB) and past left bundle branch block (LBBB). Reviewed vitals, CBC, CMP, troponin, magnesium, TSH, UA, digoxin level, chest x-ray, EKG on my interpretation with third-degree block and RBBB, pending official read, ED provider note, cardiology note, discussed with ED provider, discussed cardiology. - Hold digoxin and metoprolol; monitor on telemetry. - Obtain transthoracic echocardiogram (TTE). - Complete serial troponins for cardiac ischemia evaluation and further risk stratification. - Proceed to left heart catheterization tomorrow. - NPO (nothing by mouth) after midnight. Plan: Anticoagulation management with subtherapeutic international normalized ratio (INR) after mechanical aortic valve replacement : Patient on warfarin for mechanical aortic valve; reports missed dose; INR reportedly 1.2 (subtherapeutic). - Hold off on low molecular weight heparin (LMWH, e.g., enoxaparin) bridge at the current time. - Will need bridging with resumption of warfarin given subtherapeutic INR (per plan). Chronic back pain with current pain medication regimen : Chronic back pain; patient requesting pain medication; reports current extended-release morphine with hydromorphone for breakthrough pain; pain currently reported due to delay in taking medication. - Continue extended-release morphine. - Provide hydromorphone (Dilaudid) for breakthrough pain. Being bothered by significant pain currently, with delay in his medication which she would normally take at home, request for more immediate pain relief with intravenous Dilaudid. Coronary artery disease (CAD) : Known CAD; being evaluated in the context of bradycardia/AV block and potential ischemic etiology. - Serial troponins and left heart catheterization as above for ischemia evaluation. Atrial fibrillation : Known atrial fibrillation; rate control agents held due to bradycardia/AV block. - Hold metoprolol and digoxin as above due to bradycardia. - Anticoagulated with Lovenox Reviewed and discussed the case with medical student, reviewed and discussed below documentation. Andrea Hebert, 74M admitted day 0 for observation of bradycardia. Differential diagnosis includes medication-induced heart block, complete heart block, hypothyroidism, or exacerbation of prior coronary artery disease. 1. Bradycardia ECG shows complete heart block with junctional escape rhythm. Digoxin serum levels are subtherapeutic at 0.6. Will hold metoprolol and digoxin during overnight monitoring. Cardiology consulted and may stress test or clinical laboratory science professor to evaluate for ischemic causes of heart block. Temporary pacemaker may be required if reversible causes are ruled out. 2. Subtherapeutic INR Will start Lovenox before bridging to Coumadin pending evaluation of ischemic causes of bradycardia. 3. Former opioid use disorder Patient has a long history of prescription opioid misuse for chronic pain. Home pain medications will not be withheld to avoid opioid withdrawal. PDMP PDMP Reviewed: Not Reviewed Attestations Medical Necessity Statement*: Place in observation for additional assessment management of complete heart block with symptomatic bradycardia, and gentleman with coronary disease, mechanical aortic valve, subtherapeutic anticoagulation. and High MDM includes amount and/or complexity of data reviewed/ordered [ previous or external records, resulted lab(s)/test(s), ordered lab(s)/test(s), independent test interpretation and other healthcare professional discussion] and described risk of complication, morbidity or mortality of management as documented Diagnoses Complete heart block I44.2 Documented by User: CHERI Brand 05/23/25 15:14 Providers/Chief Complaint Chief Complaint: low hr History of Present Illness Andrea Hebert Sr is a 74 year old male with a history of nonobstructive CAD, NSTEMI, recurrent Afib, HTN, HLA admitted for observation of bradycardia after patient reports two days of fatigue and self-HR checks in the 40s. EKG performed in the ED shows complete heart block with junctional escape rhythm. He denies any inciting event and no recent changes to his medications except that he sometimes forgets to take his warfarin. His INR is 1.2 at home. He notes some new chest discomfort that is not sharp, pressure-like, nor crushing. He has not had symptoms like this before. Review of Systems Const: Reports: chills (opioid withdrawals), fatigue and night sweats (1-2x a week); Denies: fever(s) Eyes: Denies: change in vision Card: Denies: chest pain, palpitations, swelling of feet/ankles, lightheadedness or syncope Resp: Denies: dyspnea GI: Denies: nausea, vomiting, diarrhea, constipation, change in bowel habits or hematochezia : Denies: difficulty urinating or hematuria Neuro: Denies: headache(s) Medications/Allergies Home Medications ?Medication ?Instructions ?Recorded ?Confirmed ?Last Taken ?Type Walker with 4 wheels and a seat #1 ea 12/09/23 05/23/25 Unknown Rx warfarin 5 mg tablet 5 mg PO DAILY #90 tabs 08/21/24 05/23/25 05/22/25 Rx potassium chloride 10 mEq 10 meq PO DAILY #90 tabs 10/18/24 05/23/25 05/23/25 Rx tablet,extended release (Klor-Con) warfarin 4 mg tablet See Rx Instructions .Route 04/16/25 05/23/25 Unknown Rx .COMPLEX #90 tabs nitroglycerin 0.4 mg sublingual 0.4 mg sublingual Q5M PRN Chest 04/19/25 05/23/25 Unknown Rx tablet (Nitrostat) Pain #60 tabs hydromorphone 4 mg tablet 4 mg PO Q6H PRN BREATH THROUGH 04/22/25 05/23/25 Unknown Rx (Dilaudid) PAIN 30 days #120 tabs morphine 60 mg tablet,extended 60 mg PO Q12H 30 days #60 tabs 04/22/25 05/23/25 05/23/25 Rx release Repairs for Walker with 4 wheels #1 ea 05/13/25 05/23/25 Unknown Rx and seat linaclotide 145 mcg capsule 145 mcg PO DAILY #30 caps 05/13/25 05/23/25 05/23/25 Rx alprazolam 0.5 mg tablet 0.5 mg PO BID PRN anxiety #60 tabs 05/17/25 05/23/25 Unknown Rx atorvastatin 40 mg tablet 40 mg PO QPM 05/23/25 05/23/25 05/22/25 History digoxin 125 mcg (0.125 mg) tablet 125 mcg PO QAM 05/23/25 05/23/25 Unknown History ketoconazole 2 % shampoo 1 applic topical Q7D PRN Skin 05/23/25 05/23/25 Unknown History Irritation magnesium oxide 400 mg (241.3 mg 400 mg PO BID 05/23/25 05/23/25 05/23/25 History magnesium) tablet metoprolol tartrate 25 mg tablet 25 mg PO DAILY PRN bp 05/23/25 05/23/25 Unknown History sennosides 8.6 mg tablet (senna) See Rx Instructions .Route .COMPLEX 05/23/25 05/23/25 Unknown History tamsulosin 0.4 mg capsule 0.8 mg PO QPM 05/23/25 05/23/25 05/22/25 History triamcinolone acetonide 0.1 % 1 applic topical DAILY PRN Skin 05/23/25 05/23/25 Unknown History topical cream Irritation Allergies Allergy/AdvReac Type Severity Reaction Status Date / Time clindamycin Allergy Unknown Unknown Verified 05/15/25 10:36 butorphanol Allergy Unknown Verified 05/15/25 10:36 gabapentin Allergy ADR-Halluci Verified 05/15/25 10:36 nating methadone Allergy Unknown Verified 05/15/25 10:36 nalbuphine Allergy Unknown Verified 05/15/25 10:36 pentazocine Allergy Unknown Verified 05/15/25 10:36 PFSH Acute PFSH: Medical History Bradycardia Hyperlipemia Coronary artery disease [facility] in 04/2020- mild CAD lesion circumflex NSTEMI (non-ST elevated myocardial infarction) Anxiety BPH (benign prostatic hyperplasia) -on Flomax Atrial fibrillation This is not confirmed in his old records but patient believes this is the reason he is on digoxin when asked. Congestive heart failure Echocardiogram April 2020 demonstrated preserved ejection fraction, mechanical prosthetic valve aortic Hypertension Transient ischemic attack Anemia GI bleed Chronic back pain Arthritis Surgical History History of amputation of left great toe Partial with reattachment surgically History of knee surgery History of hernia repair Previous back surgery Hx of appendectomy Aortic valve replaced -Mechanical. On anticoagulation. -Subtherapeutic INRs will need bridging with therapeutic Lovenox for a few days Family History Mother Cancer Grandmother Cancer Family/Other Diabetes Brother BPH (benign prostatic hyperplasia) Other Congenital heart disease Denies family history of CAD (coronary artery disease) Clotting disorder Dementia Chronic kidney disease (CKD) Suicide Anesthesia complication Bleeding disorder Lung disease Stroke Social History Smoking and tobacco/nicotine status: former use of tobacco/nicotine Alcohol intake: current Alcohol intake frequency: 0-2 Drinks per Day Alcohol type: beer Substance/Drug Use: former Date of last use: unknown Former substance use details: former prescription opioid abuse Household members: none Physical Exam Const: COMMON NORMALS: no acute distress and alert GENERAL APPEARANCE: cooperative ORIENTATION/CONSCIOUSNESS: Yes awake HENMT: COMMON NORMALS: atraumatic Neck/C-Spine: GENERAL: Yes normal visual inspection Resp: COMMON NORMALS: normal respiratory effort and clear to auscultation bilaterally Cardio: RATE: bradycardic RHYTHM: regular rhythm HEART SOUNDS: S1 normal heart sound present, S2 normal heart sound present and Other heart sounds present (mechanical aortic valve heard) BRUITS: no carotid bruits PERIPHERAL PULSES: Peripheral pulses 2+ throughout GI: PALPATION: Yes Tenderness to palpation present (GI) Details: LLQ (tender to deep palpation) Extremity: COMMON NORMALS: normal to inspection and no pedal edema Neuro: COMMON NORMALS: patient oriented x3, moves all extremities and no sensory deficits noted Psych: COMMON NORMALS: mental status grossly normal, Normal thought process present and cooperative Skin: COMMON NORMALS: no rashes or lesions noted Data 05/23/25 09:51 05/23/25 09:51 A&P Assessment and plan 1. Complete heart block: Plan: Andrea Hebert, 74M admitted day 0 for observation of bradycardia. Differential diagnosis includes medication-induced heart block, complete heart block, hypothyroidism, or exacerbation of prior coronary artery disease. 1. Bradycardia ECG shows complete heart block with junctional escape rhythm. Digoxin serum levels are subtherapeutic at 0.6. Will hold metoprolol and digoxin during overnight monitoring. Cardiology consulted and may stress test or clinical laboratory science professor to evaluate for ischemic causes of heart block. Temporary pacemaker may be required if reversible causes are ruled out. 2. Subtherapeutic INR Will start Lovenox before bridging to Coumadin pending evaluation of ischemic causes of bradycardia. 3. Former opioid use disorder Patient has a long history of prescription opioid misuse for chronic pain. Home pain medications will not be withheld to avoid opioid withdrawal. PDMP PDMP Reviewed: Not Reviewed Coding Level of Care Code 43600 Diagnoses Complete heart block I44.2
--- NOTE | 2025-05-23 11:27 | P.CONIM_ITS ---
<Statement entered by Kristian Rios M.D - 05/24/25 14:07> Patient was cared for in conjunction with an advanced practice practitioner.? I reviewed the chart and all pertinent data including imaging, telemetry, and laboratory results.? I discussed the patient in detail with the advanced practice practitioner.? Please see?their note for consult note, testing results and agreed upon plan of care for the patient. Patient has high degree AV block and troponin elevation. We will hold rate limiting medications. Plan for coronary angigoram with possible percutaneous coronary intervention. If heart block does not resolve after confirmation of no significant CAD and 48 hours of holding rate controlling agents, will need placement of permanent pacemaker. Providers/Reason For Consult 2 Consulting Physician/Specialty*: Dr. Rios, interventional cardiology Reason for Consult*: heart block Requesting Physician: Dr Rubalcava Attending Physician: Alexis Calloway Primary Care Provider: Jesus Nguyen MD History of Present Illness History of Present Illness Andrea Hebert Sr is a 74 year old male with past medical history of intermittent atrial fibrillation, mechanical aortic valve replacement in 2014 anticoagulated with warfarin, nonobstructive CAD, diastolic CHF, TIA, hypertension, hyperlipidemia. He presented to the emergency room at the direction of our clinic nurse due to reports of heart rates in the 40s, symptoms of fatigue over the last week. He reports his heart rate has been low for the last 2 days, accompanied by palpitations. He denies typical chest pain however reports a vague discomfort in the left chest which is new, something he has never felt before. It is not sharp, not burning, not pressure, not achy, or squeezing. EKG in the ER consistent with 2:1 heart block, also has change in left bundle branch to right bundle branch block. Anterior lead T wave inversion also new. Home INR this morning was 1.2, he is inconsistent in remembering to take his warfarin. CBC and CMP in the ER unremarkable, digoxin level subtherapeutic at 0.4. He has not had any symptoms of heart failure, he sleeps in a hospital bed at home due to significant back pain and COPD. He also gives a history of dying on the table in his last back surgery in the . He does not know if this is related to anesthesia or not. He has an obese abdomen, feels that he will be able to lay prone if needed for stress test. Review of Systems 2 Const: Reports: fatigue; Denies: fever(s), chills, change in weight or diaphoresis Eyes: Denies: change in vision ENMT: Denies: epistaxis Card: Reports: palpitations; Denies: chest pain, irregular heart rhythm, edema, syncope, pre-syncope, dyspnea on exertion, orthopnea or leg pain with exertion Resp: Denies: dyspnea, productive cough or wheezing GI: Denies: nausea, vomiting, hematemesis, hematochezia or melena : Denies: hematuria Musc: Denies: extremity swelling Noel/Lymph: Denies: easy bruising or easy bleeding Medications/Allergies Home Medications ?Medication ?Instructions ?Recorded ?Confirmed ?Last Taken ?Type Walker with 4 wheels and a seat #1 ea 12/09/23 5 Unknown Rx warfarin 5 mg tablet 5 mg PO DAILY #90 tabs 08/2105/23/25 05/22/25 Rx potassium chloride 10 mEq 10 meq PO DAILY #90 tabs 02/0605/23/25 05/23/25 Rx tablet,extended release (Klor-Con) warfarin 4 mg tablet See Rx Instructions .Route 0 04/16/25 05/23/25 Unknown Rx .COMPLEX #90 tabs nitroglycerin 0.4 mg sublingual 0.4 mg sublingual Q5M PRN Chest 04/19/25 05/23/25 Unknown Rx tablet (Nitrostat) Pain #60 tabs hydromorphone 4 mg tablet 4 mg PO Q6H PRN BREATH THROU GH 04/22/25 05/23/25 Unknown Rx (Dilaudid) PAIN 30 days #120 tabs morphine 60 mg tablet,extended 60 mg PO Q12H 30 days # 60 tabs 04/22/25 05/23/25 05/23/25 Rx release Repairs for Walker with 4 wheels #1 ea 05/13/25 Unknown Rx and seat linaclotide 145 mcg capsule 145 mcg PO DAILY #30 caps 05/13/25 05/23/25 05/23/25 Rx alprazolam 0.5 mg tablet 0.5 mg PO BID PRN anxiety #6 0 tabs 05/17/25 05/23/25 Unknown Rx atorvastatin 40 mg tablet 40 mg PO QPM 05/23/2505/22/25 History digoxin 125 mcg (0.125 mg) tablet 125 mcg PO QAM 05/2305/23/25 Unknown History ketoconazole 2 % shampoo 1 applic topical Q7D PRN Ski n 05/23/25 05/23/25 Unknown History Irritation magnesium oxide 400 mg (241.3 mg 400 mg PO BID 5 05/23/25 05/23/25 History magnesium) tablet metoprolol tartrate 25 mg tablet 25 mg PO DAILY PRN bp 05/23/25 05/23/25 Unknown History sennosides 8.6 mg tablet (senna) See Rx Instructions . Route .COMPLEX 05/23/25 05/23/25 Unknown History tamsulosin 0.4 mg capsule 0.8 mg PO QPM 05/23/2505/2305/22/25 History triamcinolone acetonide 0.1 % 1 applic topical DAILY P RN Skin 05/23/25 05/23/25 Unknown History topical cream Irritation Allergies Allergy/AdvReac Type Severity Reaction Status Date / Time clindamycin Allergy Unknown Unknown Verified 05/15/25 10:36 butorphanol Allergy Unknown Verified 05/15/25 10:36 gabapentin Allergy ADR-Halluci Verified 05/15/25 10:36 nating methadone Allergy Unknown Verified 05/15/25 10:36 nalbuphine Allergy Unknown Verified 05/15/25 10:36 pentazocine Allergy Unknown Verified 05/15/25 10:36 PFSH Acute 2 PFSH: Medical History Hyperlipemia Coronary artery disease [facility] in 04/2020- mild CAD lesion circumflex NSTEMI (non-ST elevated myocardial infarction) Anxiety BPH (benign prostatic hyperplasia) -on Flomax Atrial fibrillation This is not confirmed in his old records but patient believes this is the reason he is on digoxin when asked. Congestive heart failure Echocardiogram April 2020 demonstrated preserved ejection fraction, mechanical prosthetic valve aortic Hypertension -VSS; continue to monitor -continue oral antihypertensives Transient ischemic attack Anemia GI bleed Chronic back pain Arthritis Surgical History History of amputation of left great toe Partial with reattachment surgically History of knee surgery History of hernia repair Previous back surgery Hx of appendectomy Aortic valve replaced -Mechanical. On anticoagulation. -Subtherapeutic INRs will need bridging with therapeutic Lovenox for a few days Family History Mother Cancer Grandmother Cancer Family/Other Diabetes Brother BPH (benign prostatic hyperplasia) Other Congenital heart disease Denies family history of CAD (coronary artery disease) Clotting disorder Dementia Chronic kidney disease (CKD) Suicide Anesthesia complication Bleeding disorder Lung disease Stroke Social History Smoking and tobacco/nicotine status: former use of tobacco/nicotine Alcohol intake: current Alcohol intake frequency: 0-2 Drinks per Day Alcohol type: beer Substance/Drug Use: former Date of last use: unknown Former substance use details: former prescription opioid abuse Vitals/I&O/Wt Last Vital Signs Temp 98.3 F 05/23/25 09:37 Pulse 43 L 05/23/25 10:30 Resp 17 05/23/25 10:30 BP 137/50 05/23/25 10:30 Pulse Ox 98 05/23/25 10:30 O2 Del Method Room Air 05/23/25 09:37 Weight last 48 hrs Weight 209 lb Physical Exam 2 Const: COMMON NORMALS: no acute distress and patient oriented x3 GENERAL APPEARANCE: cooperative and comfortable ORIENTATION/CONSCIOUSNESS: Yes awake, Yes oriented to person, Yes oriented to place and Yes oriented to time Chest: COMMONS NORMALS: normal inspection of the chest and normal palpation of entire chest wall CHEST: Yes Symmetrical chest wall rise Resp: COMMON NORMALS: normal respiratory effort, No retractions, No use of accessory muscles and clear to auscultation bilaterally EFFORT & INSPECTION: Yes symmetric chest movement AUSCULTATION: clear to auscultation bilaterally Cardio: COMMON NORMALS: regular rhythm, S2 normal heart sound present, No gallops present (Cardio), No clicks present (Cardio) and No rub (Cardio) R ATE: bradycardic RHYTHM: regular rhythm HEART SOUNDS: S2 normal heart sound present and Murmur heart sound present systolic Location: left sternal border and right sternal border Radiation: to the neck (right ) Intensity: II/ PERIPHERAL PULSES: radial pulses present Extremity: COMMON NORMALS: no pedal edema Neuro: COMMON NORMALS: patient oriented x3 and moves all extremities S ENSORIUM/ORIENTATION: Yes oriented to person, Yes oriented to place and Yes oriented to time Data 05/23/25 09:51 05/23/25 09:51 A&P Assessment and plan 1. Partial atrioventricular block with 2:1 ratio determined by electrocardiography: 2. Intermittent atrial fibrillation: 3. Coronary artery disease: 4. S/P AVR: 5. Palpitation: 6. Subtherapeutic international normalized ratio (INR): Plan: Will plan to start Lovenox for anticoagulation. Echocardiogram to further evaluate cardiac status including LVEF, wall motion abnormality, aortic valve including gradient and valve mobility. Depending on course throughout the day may plan on stress test in the morning. Hold digoxin and metoprolol. Update: He has had fluctuating degree of AV block, not consistently 2:1, P waves are absent with some some complexes, other times P waves are showing up in the T wave. Given that conduction abnormality, elevated troponin with some chest discomfort we will plan on coronary angiogram tomorrow morning. N.p.o. after midnight tonight. Will withhold any rate limiting medication for 48 hours and reassess conduction before determining if pacemaker placement is needed. If heart rate is sustained in the 30s, or if patient is symptomatic can utilize dopamine infusion. PDMP PDMP Reviewed: Not Reviewed Coding Level of Care Code Acute Code for Chg Fwd Diagnoses Partial atrioventricular block with 2:1 ratio determined by electrocardiography I44.30 Intermittent atrial fibrillation I48.0 Coronary artery disease I25.10 S/P AVR Z95.2 Palpitation R00.2 Subtherapeutic international normalized ratio (INR) R79.1
--- NOTE | 2025-05-23 11:50 | ECG_ITS ---
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
--- NOTE | 2025-05-23 12:03 | USCV_ITS ---
Andrea Hebert Age: 74 Gender: M : 1950 Exam Date: 05/23/2025 14:31 Ordering Phys: Mary Davis Technologist: Exam Location: [facility] Indication: ao pros BP: 136 / 58 HR: 82 Rhythm: Sinus Technical Quality: Adequate MEASUREMENTS (Male / Female) Normal Values 2D ECHO LVOT Diameter 2.0 cm LV Ejection Fraction MOD 4C 49.2 % LV Ejection Fraction MOD 2C 68.6 % LV Ejection Fraction 2C AL 70.3 % LA Diameter 4.1 cm RA Systolic Volume 4C AL 72.8 ml RA Systolic Volume 4C MOD 68.7 ml Aorta at Sinotubular Diameter 2.7 cm IVC Diameter 2.2 cm M-MODE LA Ao Ratio MM 1.1 AV Cusp Separation MM 1.8 cm DOPPLER AV Peak Velocity 275.3 cm/s LVOT Peak Velocity 102.0 cm/s AV Area Cont Eq vti 1.3 cm squared AV Area Cont Eq pk 1.2 cm squared MV Peak Velocity 219.0 cm/s MV Area PHT 5.7 cm squared Mitral E to A Ratio 2.8 TV Peak Velocity 190.5 cm/s TR Peak Velocity 232.0 cm/s TR Peak Gradient 21.5 mmHg TV Peak E Velocity 125.0 cm/s PV Peak Velocity 136.0 cm/s FINDINGS Left Ventricle Normal left ventricular size and systolic function, EF 55-60%. No regional wall motion abnormalities. Right Ventricle Normal right ventricular size and systolic function. Right Atrium Dilated Left Atrium Dilated IA Septum Grossly normal Mitral Valve Moderate mitral annular calcification. Mild mitral valve stenosis. Mean gradient across mitral valve is 4.93mmHg. Aortic Valve Mechcanical aortic valve. Mean gradient across aortic valve of 16mmHg and aortic valve area of 1.34cm2 Tricuspid Valve Mild tricuspid regurgitation. Pulmonary artery systolic pressure is normal. Pulmonic Valve Mild pulmonic regurgitation Pericardium Normal Aorta Normal in size IVC Appears to be normal CONCLUSIONS LV systolic function is normal with EF of 55-60%. Biatrial enlargement. Mild mitral stenosis Mechanical aortic valve. Mean gradient is mildly increased at 16 mmHg. Mild tricuspid regurgitation Mild pulmonic regurgitation Kristian Rios MD (Electronically Signed) Final Date: 24 May 2025 07:40 S
--- NOTE | 2025-05-23 12:09 | PC.NURSE ---
Report taken from Marya in ER, patient arrived on floor at 1145.
[2025-05-23 13:03] LABS: Troponin 5 2HR 48.26 ng/L (0-15); Troponin 5 2HR Delta 1.26 ABS# (0-10)
[2025-05-23 13:05] LABS: Thyroid Stimulating Hormone 1.12 uIU/mL (0.27-4.20)
--- NOTE | 2025-05-23 13:42 | ECG_ITS ---
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
[2025-05-23] MEDS: HYDROmorphone tab 2 MG TABLET 4 MG PO (15:17)
[2025-05-23 16:14] LABS: Troponin 5 6HR 47.25 ng/L (0-15); Troponin 5 6HR Delta 0.25 ng/L (0-12)
[2025-05-23] MEDS: HYDROmorphone 0.5 MG/0.5 ML INJ IVP (17:31)
[2025-05-23] MEDS: polyethylene glycol 3350 Pkt 17 gm PO (17:31)
--- NOTE | 2025-05-23 17:36 | PC.NURSE ---
patient requested dilaudid for pain, but asked if he could have the IVP route first so it would act faster, as he had been without his pain medicine for a while. Dr Calloway notified and order for ivp dilaudid placed by doctor.
[2025-05-23] MEDS: morphine ER (12 HR) 30 mg tablet 60 MG PO (20:32)
[2025-05-24] VITALS (91 sets, daily range): BP systolic 114–175; BP diastolic 49–85; PULSE 37–50; RESP 8–25; TEMP 36.4–36.8; O2SAT 88–100; BMI 31.1
[2025-05-24] MEDS: HYDROmorphone tab 2 MG TABLET 4 MG PO ×4 (03:26→23:56)
--- NOTE | 2025-05-24 03:48 | PC.NURSE ---
Contacted due to patient sustaining a heart rate of 37, per the cardiology note dopamine is recommended for a sustained rate in the thirties. Orders recieved for fixed rate dopamine gtt.
[2025-05-24 04:02] LABS: Anion Gap 12.4 (5-19); Blood Urea Nitrogen 18 mg/dL (8-23); Calcium 8.6 mg/dL (8.5-10.5); Carbon Dioxide 29 mmol/L (22-29); Chloride 100 mmol/L (98-107); Creatinine Clr Calc Pharmacy 90.6619; Glucose 125 mg/dL (65-115); Magnesium 2.0 mg/dL (1.7-2.3); Osmolality Calculated 287 mOsm/kg (285-295); Potassium 4.4 mmol/L (3.5-5.1); Sodium 137 mmol/L (136-145)
[2025-05-24] MEDS: DOPamine drip 400 MG/250 ML PREMIX 10.67 MG IV (04:14)
[2025-05-24] MEDS: ondansetron 2 mg/ML SDV 2 mL 4 MG IVP (05:29)
[2025-05-24 05:35] LABS: Hematocrit 37.2 % (37-53); Hemoglobin 12.10 g/dL (11.27-16.99)
[2025-05-24] MEDS: morphine ER (12 HR) 30 mg tablet 60 MG PO ×2 (08:53→20:14)
--- NOTE | 2025-05-24 11:36 | W.PM.OPSUD ---
Surgery/Procedure H&P Update DATE OF PROCEDURE: May 24, 2025 DATE H&P PERFORMED: 05/23/25 H&P UPDATE INFORMATION: I have reviewed H&P completed within last 30 days, I have examined patient prior to procedure and No changes to prior documentation PREOP DIAGNOSIS: High degree AV block/ Troponin elevation PRIMARY INDICATION FOR PROCEDURE: High degree AV block/ Troponin elevation PLANNED PROCEDURE: Operation Date: 05/24/25 12:00 Proposed Procedures p Cardiac Catheterization(Not Applicable) - Kristian Rios M.D Possible percutaneous coronary intervention PATIENT REASSESSED PRIOR TO SEDATION, WITH NO CHANGE NOTED: Yes PHYSICAL EXAM: alert, oriented x 3, clear to auscultation bilaterally and regular rate & rhythm AIRWAY EVAL/ANESTHESIA PLAN: normal airway, ASA III, Local Anesthesia, Risks, benefits & alternatives of sedation and/or procedure discussed and Patient agrees to continue as planned ADDITIONAL INFORMATION: Moderate sedation
--- NOTE | 2025-05-24 11:56 | PM.PROC ---
Procedure Note: Date of procedure: 05/24/25 Pre-procedure diagnosis: High degree AV block/ troponin elevation Post-procedure diagnosis: other (Patent coronary arteries) Procedure: Patent coronary arteries Continue dopamine. Keep holding rate controlling agents. If heart block does not resolve by tomorrow, will need transfer for permanent pacemaker placement Performing Provider: Kristian Rios Complications: None Condition: stable Disposition: floor Coding Level of Care Code Acute Code for Adela Domingo
--- NOTE | 2025-05-24 12:00 | XACV_ITS ---
Exam Room: [facility] Ht: 175 cm Wt: 95 kg BSA: 2.18 m2 Gender: Male : 1950 Any Known Allergies: Other Exam Priority: Routine Procedure(s): Procedure Description: Diagnostic procedure Procedure Description: Coronary Angiography Diagnostic Cath Status: Urgent Diagnostic Findings * INDICATION: High degree AV block/ troponin elevation. * No significant disease noted in the Left Main, Left Anterior Descending, Right, or Circumflex coronary arteries. * Coronary angiography shows right dominance. Conclusions 1. No significant disease noted in the Left Main, Left Anterior Descending, Right, or Circumflex coronary arteries. Recommendations * Continue dopamine. Keep holding rate controlling agents. If heart block does not resolve by tomorrow, will need transfer for permanent pacemaker placement. Interventional RX Recommendation: medical therapy and/or counseling Diagnostic RX Recommendation: medical therapy and/or counseling Anticoagulation: Heparin Pressures Phase:Rest AO : / ( 1 ) @ 12:47:00 PM Clinical Evaluation EBL: 5mL-10mL Procedural Details Procedure Consent Obtained. Admit Source: In Patient. Pre-Procedure Time Out. Identified patient by full name and date of as verbalized by the patient/guarantor. Does the consent match the physician's order: Yes. Accurate & Complete Informed Consent: Yes. Inpatient/Outpatient History & Physical on Chart: Yes. If H&P is completed, is and addenduem needed: No; If yes, is the addendum complete: N/A. Visualize and Verify Site with Patient/Guarantor: N/A. Relevant Radiology Images available: N/A. The risks, benefits, and alternatives of sedation and/or procedure were discussed by physician. The patient agrees to continue. Procedure started. [facility] Clinical Fraility Score: 6: Moderately Frail. 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 Chest Pain Symptom Assessment: Atypical Angina. Correct patient, site and procedure confirmed by cath team. Current diagnosis: Chest Pain, AV block, Chest pain. PERRLA. 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 Lungs clear x 5 lobes. IV Site on Arrival: 22 gauge in the right forearm. IV Fluids: 0.9% NaCl at KVO. 0 mL infused prior to collaborating supervising physician. Pre Procedural Pulses: bilateral radial was 3+. Pre Procedural Pulses: bilateral dorsalis pedis was Doppled. Pre Procedural Pulses: bilateral posterior tibial was Doppled. Oxygen started at 2liters/min via nasal canula. right radial was prepped with chloroprep then draped in the usual sterile fashion. right groin was prepped with chloroprep then draped in the usual sterile fashion. Baseline sample Acquired. HR: 39 BPM. Physician notified. Pt arrived to collaborating supervising physician with dopamine infusing at 3mcg/kg/min. Physician arrived. Dopamine titrated to 5mcg/kg/min by Blank Cummings RN per physician order. Lidocaine 1% infiltrated to the right radial. Arterial access obtained. A 5 iraqi TIG catheter in over wire. Multiple views taken of left coronary artery. Catheter redirected to the RCA. Multiple views taken of right coronary artery. Catheter removed over the standard wire. A TR Band was successful obtaining hemostatsis at the Right Radial artery insertion site. Post Procedure: Pulses reassessed and unchanged. PERRLA. 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 No VTE prophylaxis required. Medication's Wasted: Lidocaine 1% = 18 mL. Medication's Wasted: Nitro = 49.8 mg. Medication's Wasted: Heparin = 1000 unit. Medication's Wasted: Other = Versed 1.5mg Fentanyl 100mcg. Total IV fluids: 25 mL. Post-op diagnosis: Non-obstructive CAD. Complications: None. Estimated blood loss: 5mL-10mL. Responsiveness - Normal response to verbal stimuli; alert and oriented, PERRLA. Airway - Unaffected, no intervention required; spontaneous ventilation. Circulation: W/N/L, pulses unchanged. Nausea/Vomiting: No. Procedure completed. Patient transferred by bed to 1st floor. Vital chart was stopped. Access Site Site: Right Radial artery Sheath Size: 6 Fr Hemostasis Method: TR Band Hemostasis Success: Successful Procedure Medications Start: 11:49 AM Stop: :49 AM Medication: Versed Amount: 0.5 mg Route: I.V. Start: 11:49 AM Stop: :49 AM Medication: Nitrogylcerin Amount: 200 mcg Route: I.A. Start: 11: AM Stop: : AM Medication: Heparin Amount: 5000 units Route: I.V. I, the attending physician, have reviewed and verified all procedure medications. Yes, all medications given per verbal order History/Risk Factors Hypertension: Yes Dyslipidemia: Yes Peripheral Arterial Disease (PAD): No Myocardial Infarction (DE): Yes Obesity: No Renal Disease: No Tobacco Use: Former Prior Interventions PCI: No CABG: No Valve Surgery: No Report Signatures Finalized by Kristian Rios MD on 05/25/2025 02:28 PM
--- NOTE | 2025-05-24 12:35 | P.PN_ITS ---
Subjective 2 Subjective: cath today. Vitals/I&O/Wt Last Vital Signs Temp 97.7 F 05/24/25 12:00 Pulse 41 L 05/24/25 12:00 Resp 16 05/24/25 12:00 BP 141/59 05/24/25 12:00 Pulse Ox 92 05/24/25 12:00 O2 Del Method Room Air 05/24/25 12:00 05/23/25 05/24/25 05/24/25 22:59 06:59 14:59 Output Total 300 / 300 500 / 800 350 / 350 Balance -300 / 700 -500 / 200 -350 / -350 Weight last 48 hrs Weight 95.8 kg Weight 94.801 kg Weight 94.801 kg Physical Exam 2 Narrative: Physical Exam Const: no acute distress and alert HENMT: atraumatic, normoc ephalic Neck/C-Spine: supple Resp: normal respiratory effort and clear to auscultation bi laterally Cardio: bradycardic, regul ar rhythm. S1/S2 n ormal, mechanical aortic valve heard . Peripheral pulse s 2+ throughout GI: Tenderness to palp ation present (GI) Details: LLQ (ten monster to deep palpat ion) Extremity: no pedal edema Neuro: oriented x3, moves all extremities a nd no sensory defi cits noted Psych: mental status ck sly normal, Normal thought process p resent and coopera tive Skin: no rashes or lesio ns noted Data 05/24/25 03:23 05/24/25 03:23 A&P Assessment and plan 1. Complete heart block: 2. Subtherapeutic international normalized ratio (INR): Plan: Andrea Hebert, 74M admitted for bradycardia. 1. Complete heart block: - bradycardia with high-grade AV block. - EKG described as bradycardia with high-degree AV block with possible AV dissociation versus second-degree Mobitz type II; later interpretation notes third-degree heart block with right bundle branch block (RBBB) and past left bundle branch block (LBBB). - Hold digoxin and metoprolol; monitor on telemetry. - digoxin level was subtherapeutic - titrate dopamine drip in ICU History of mechanical aortic valve - Patient on warfarin for mechanical aortic valve; reports missed dose; INR reportedly 1.2 (subtherapeutic). - start on heparin drip after cath per cardiology recommendations - Will need bridging with resumption of warfarin given subtherapeutic INR (per plan). Chronic back pain - cont pain medication regimen of extended-release morphine with hydromorphone for breakthrough pain - hydromorphone (Dilaudid) for breakthrough pain. Coronary artery disease (CAD) - Known CAD; being evaluated in the context of bradycardia/AV block and potential ischemic etiology. - transthoracic echocardiogram (TTE) with normal EF, no regional wall motion abnormalities. - serial troponins mildly elevated, flat. - left heart catheterization complete, no interventions. Atrial fibrillation - rate control agents held due to bradycardia/AV block. - Hold metoprolol and digoxin as above due to bradycardia. - heparin drip after cath. Disposition - transfer to ICU for titration of dopamine drip - if no resolution of heart block off rate control medications, may need to transfer for EP services. PDMP PDMP Reviewed: Not Reviewed Attestations 2 Medical Necessity Statement*: Ongoing inpatient for heart block Coding Level of Care Code Acute Code for [facility] Fwd Diagnoses Complete heart block I44.2 Subtherapeutic international normalized ratio (INR) R79.1
--- NOTE | 2025-05-24 13:27 | PC.NURSE ---
Patient is bradycardic with complete heart block. Patient on dopamine drip at 3mcg/kg/min due to decreased heart rates in the mid 30s. Unable to tritrate. Patient is s/p LHC with right radial access and TR Band in place to right wrist. Patient distal extremity is pink, warm and has palpable pulses. Instructed patient regarding site care with restrictions. Patient verbalized complete understanding. Patient transferred ICU for closer monitoring and possible need for pacing. Report given to GILMER Lott.
--- NOTE | 2025-05-24 15:30 | PC.NURSE ---
TR band removed. Pt tolerated well. Biocclusive dressing applied. NO bleeding or hematomas noted at right wrist.
[2025-05-24] MEDS: polyethylene glycol 3350 Pkt 17 gm PO (17:46)
--- NOTE | 2025-05-24 18:23 | PC.NURSE ---
Shift summary: Pt arrived to ICU around [address] It is now off, right wrist site doing well. Pt remains in third degree block. He denies dizziness, chest pain or shortness of breath. Dopamine remains infusing at 3 mcg/kg/min. Pt's son has been at bedside, very attentive. no edema noted. Pt has a good appetite, eating most of his meal. he Has urinated once, it is clear lemon yellow.
--- NOTE | 2025-05-24 19:00 | PC.NURSE ---
Pt's valuables logged and in pyxis.
--- NOTE | 2025-05-24 22:18 | PC.NURSE ---
Addendum entered by Cecilia Ellis RN 05/25/25 00:38: Contacted Dr. Rios @[phone] to discuss BP trending up, current BP of 182/65, and increase in dopamine from 3 to 5 due to low HR. New order for 10mg IVP Hydralazine ONCE Now. Original Note: Physician Notification: Contacted Dr. Rios @[phone] to clarify orders. New order to change Dopamine drip from fixed rate to titratable.
[2025-05-25] VITALS (49 sets, daily range): BP systolic 120–183; BP diastolic 47–69; PULSE 39–47; RESP 11–24; TEMP 36.8; O2SAT 90–98
[2025-05-25] MEDS: hyDRALAzine 20 mg/mL INJ 1 mL 10 MG IVP (00:46)
[2025-05-25] MEDS: DOPamine drip 400 MG/250 ML PREMIX 17.96 MG IV ×2 (02:03→15:09)
[2025-05-25 04:24] LABS: Hematocrit 40.1 % (37-53); Hemoglobin 13.30 g/dL (11.27-16.99); Mean Corpuscular HGB Conc 33.2 g/dL (30-55); Mean Corpuscular Hemoglobin 28.9 pg (27-33); Mean Corpuscular Volume 87.2 fl (82-101); Nucleated Red Blood Cells % 0 %; Platelet Count 196 10^3/cmm (157-399); Red Blood Count 4.60 10^6/uL (3.85-5.65); White Blood Count 7.56 10^3/uL (3.29-11.43)
[2025-05-25 04:40] LABS: Blood Urea Nitrogen 14 mg/dL (8-23); Calcium 8.4 mg/dL (8.5-10.5); Carbon Dioxide 27 mmol/L (22-29); Chloride 101 mmol/L (98-107); Glucose 133 mg/dL (65-115); Osmolality Calculated 284 mOsm/kg (285-295); Sodium 136 mmol/L (136-145)
[2025-05-25 04:51] LABS: Anion Gap 12.1 (5-19); Creatinine Clr Calc Pharmacy 91.1128; Potassium 4.1 mmol/L (3.5-5.1)
[2025-05-25] MEDS: HYDROmorphone tab 2 MG TABLET 4 MG PO ×3 (05:46→15:01)
[2025-05-25] MEDS: polyethylene glycol 3350 Pkt 17 gm PO (05:55)
[2025-05-25] MEDS: ondansetron 2 mg/ML SDV 2 mL 4 MG IVP (07:34)
--- NOTE | 2025-05-25 08:28 | P.PN_ITS ---
Subjective 2 Subjective: Patient ordered stairs are low. No chest pain. Vitals/I&O/Wt Last Vital Signs Temp 97.8 F 05/24/25 23:54 Pulse 42 L 05/25/25 06:00 Resp 13 05/25/25 06:00 BP 134/52 05/25/25 06:00 Pulse Ox 98 05/25/25 06:00 O2 Del Method Room Air 05/25/25 06:00 O2 Flow Rate 3 05/25/25 05:15 05/24/25 05/25/25 05/25/25 22:59 06:59 14:59 Intake Total 1306.262 / 5287.390 4434.155 / 3207.417 Output Total 800 / 1450 975 / 2425 Balance 506.262 / 336.262 446.155 / 782.417 Weight last 48 hrs Weight 204 lb 9.6 oz Weight 211 lb 3.245 oz Weight 209 lb Weight 209 lb Physical Exam 2 Narrative: GENERAL: Patient is alert, awake and oriented x3. [] NECK: No jugular vein distension. [] HEENT: No cyanosis. No icterus. No pallor. [] HEART: Bradycardia LUNGS: Clear to auscultate bilaterally. [] CENTRAL NERVOUS SYSTEM: Grossly nonfocal. [] EXTREMITIES: Lower extremities with 1+ edema bilaterally Data 05/25/25 04:12 05/25/25 04:12 A&P Assessment and plan 1. High degree atrioventricular block: 2. Intermittent atrial fibrillation: 3. Chronic anticoagulation: 4. S/P AVR: Plan: Patient has high degree AV block. Heart rate is still around 40 bpm. He is asymptomatic at this time. Continue dopamine. Patient has been off of rate limiting agents for 48 hours. No improvement in heart block. Will need permanent pacemaker. We will transfer patient for permanent pacemaker placement. Continue lovenox for mechanical aortic valve. Coronary angiogram did not show significant CAD. Thank you for involviing us care of this patient. We will continue to follow. Please call with questions PDMP PDMP Reviewed: Not Reviewed Attestations 2 Medical Necessity Statement*: Care expected to cross 2 midnights. Coding Level of Care Code Acute Code for [facility] Fwd Diagnoses High degree atrioventricular block I44.39 Intermittent atrial fibrillation I48.0 Chronic anticoagulation Z79.01 S/P AVR Z95.2
[2025-05-25] MEDS: morphine ER (12 HR) 30 mg tablet 60 MG PO (09:07)
--- NOTE | 2025-05-25 10:50 | P.DS_ITS ---
Discharge Providers Date of Admission: 05/23/25 11:00 Date of Discharge: May 25, 2025 Attending Provider at Admission: Alexis Calloway Attending Provider at Discharge: Pritesh Simpson MD Primary Care Provider: Jesus Nguyen MD Diagnoses at Discharge Discharge Diagnosis 1. Complete heart block: 2. Subtherapeutic international normalized ratio (INR): Reason for Visit Reason for Visit: low hr Brief History: Andrea Hebert, 74M admitted for bradycardia. Hospital Course Hospital Course 1. Complete heart block: - bradycardia with high-grade AV block. - EKG described as bradycardia with high-degree AV block with possible AV dissociation versus second-degree Mobitz type II; later interpretation notes third-degree heart block with right bundle branch block (RBBB) and past left bundle branch block (LBBB). - Hold digoxin and metoprolol; monitor on telemetry. - digoxin level was subtherapeutic - titrate dopamine drip in ICU History of mechanical aortic valve - Patient on warfarin for mechanical aortic valve; reports missed dose; INR reportedly 1.2 (subtherapeutic). - start on heparin drip after cath per cardiology recommendations - Will need bridging with resumption of warfarin given subtherapeutic INR. Chronic back pain - cont pain medication regimen of extended-release morphine with hydromorphone for breakthrough pain - hydromorphone (Dilaudid) for breakthrough pain. H/O Coronary artery disease (CAD) - evaluated for potential ischemic etiology - transthoracic echocardiogram (TTE) with normal EF, no regional wall motion abnormalities. - serial troponins mildly elevated, flat. - left heart catheterization complete, no interventions. Atrial fibrillation - Hold metoprolol and digoxin as above due to bradycardia. - heparin drip after cath to bridge to warfarin when able. Disposition - transfer to ICU for titration of dopamine drip - Transferring to [facility] for evaluation by EP for consideration of PPM. Physical Exam Narrative: Physical Exam Const: no acute distress and alert HENMT: atraumatic, normocephalic Neck/C-Spine: supple Resp: normal respiratory effort and clear to auscultation bilaterally Cardio: bradycardic, regular rhythm. S1/S2 normal, mechanical aortic valve heard. Peripheral pulses 2+ throughout GI: Tenderness to palpation in LLQ tender to deep palpation Extremity: no pedal edema Neuro: oriented x3, moves all extremities and no sensory deficits noted Psych: mental status grossly normal, Normal thought process, present and cooperative Skin: no rashes or lesions noted Discharge Data Studies Completed and Pending Completed Studies During Hospitalization Category Date Time Status XR chest 1V portable [id number] Stat Exams 05/23/25 09:43 Completed CV. echo complete* [id number] Routine Ultrasound 05/23/25 12:03 Completed Pending at discharge Category Date Time Status [employer] [facility] request for service Routine Exams 05/24/25 12:00 Taken Cardiac Stress Test MIBI [Sestamibi Stress Test Request Exams 05/23/25 12:10 Stop Req ] Routine Basic Metabolic Panel AM LABS Lab 05/26/25 04:00 Ordered Radiology Impressions Chest X-Ray 05/23/25 09:43 IMPRESSION: No acute findings. Laboratory Results WBC 7.56 10^3/uL (3.29-11.43) 05/25/25 04:12 RBC 4.60 10^6/uL (3.85-5.65) 05/25/25 04:12 Hgb 13.30 g/dL (11.27-16.99) 05/25/25 04:12 Hct 40.1 % (37-53) 05/25/25 04:12 MCV 87.2 fl (82-101) 05/25/25 04:12 MCH 28.9 pg (27-33) 05/25/25 04:12 MCHC 33.2 g/dL (30-55) 05/25/25 04:12 RDW 12.8 % (12.1-15.1) 05/25/25 04:12 Plt Count 196 10^3/cmm (157-399) 05/25/25 04:12 MPV 10.4 fL (7.4-10.4) 05/25/25 04:12 Neut % (Auto) 65.8 % 05/25/25 04:12 Lymph % (Auto) 17.1 % 05/25/25 04:12 [place] % (Auto) 12.8 % 05/25/25 04:12 Eos % (Auto) 3.2 % 05/25/25 04:12 Baso % (Auto) 0.7 % 05/25/25 04:12 Neut # (Auto) 4.98 10^3/uL (1.8-7.7) 05/25/25 04:12 Lymph # (Auto) 1.3 10^3/uL (0.8-4.8) 05/25/25 04:12 [place] # (Auto) 1.0 10^3/uL (0.2-0.9) H 05/25/25 04:12 Eos # (Auto) 0.2 10^3/uL (0.0-0.8) 05/25/25 04:12 Baso # (Auto) 0.1 10^3/uL (0.0-0.1) 05/25/25 04:12 Nucleated RBC % (auto) 0 % 05/25/25 04:12 Nucleated RBCs # 0.0 /100WBC 05/25/25 04:12 Sodium 136 mmol/L (136-145) 05/25/25 04:12 Potassium 4.1 mmol/L (3.5-5.1) 05/25/25 04:12 Chloride 101 mmol/L (98-107) 05/25/25 04:12 Carbon Dioxide 27 mmol/L (22-29) 05/25/25 04:12 Anion Gap 12.1 (5-19) 05/25/25 04:12 BUN 14 mg/dL (8-23) 05/25/25 04:12 Creatinine 0.6 mg/dL (0.7-1.2) L 05/25/25 04:12 GFR Calculation Not Reportable 05/25/25 04:12 Glucose 133 mg/dL (65-115) H 05/25/25 04:12 Calculated Osmolality 284 mOsm/kg (285-295) L 05/25/25 04:12 Calcium 8.4 mg/dL (8.5-10.5) L 05/25/25 04:12 Magnesium 2.0 mg/dL (1.7-2.3) 05/24/25 03:23 Total Bilirubin 0.5 mg/dL (0.15-1.2) 05/23/25 09:51 AST 29 U/L (0-40) 05/23/25 09:51 ALT 25 U/L (0-41) 05/23/25 09:51 Alkaline Phosphatase 97 U/L (40-130) 05/23/25 09:51 Troponin T Baseline 47 ng/L (0-15) H 05/23/25 09:51 Troponin T 120 Minute 48.26 ng/L (0-15) H 05/23/25 12:36 Delta Troponin T 1.26 ABS# (0-10) 05/23/25 12:36 Troponin T Hi Sens 6Hr 47.25 ng/L (0-15) H 05/23/25 15:45 Troponin T Hi Sens 6Hr Delta 0.25 ng/L (0-12) 05/23/25 15:45 Total Protein 7.4 g/dL (6.6-8.7) 05/23/25 09:51 Albumin 3.7 g/dL (3.5-5.2) 05/23/25 09:51 Globulin 3.7 g/dL (1.3-4.6) 05/23/25 09:51 Lipase 63 U/L (13-60) H 05/23/25 09:51 TSH 1.12 uIU/mL (0.27-4.20) 05/23/25 09:51 Urine Color Yellow (Yellow) 05/23/25 10:16 Urine Appearance Clear (CLEAR) 05/23/25 10:16 Urine pH 5.5 (5-7) 05/23/25 10:16 Ur Specific [place] 1.015 (1.005-1.030) 05/23/25 10:16 Urine Protein Negative (Negative) 05/23/25 10:16 Urine Glucose (UA) Negative (Normal) 05/23/25 10:16 Urine Ketones Negative (Negative) 05/23/25 10:16 Urine Blood Negative (Negative) 05/23/25 10:16 Urine Nitrate Negative (Negative) 05/23/25 10:16 Urine Bilirubin Negative (Negative) 05/23/25 10:16 Urine Urobilinogen 1.0 mg/dL (Negative) 05/23/25 10:16 Ur Leukocyte Esterase Negative (Negative) 05/23/25 10:16 Amorphous Sediment Not Reportable 05/23/25 10:16 Digoxin 0.4 ng/mL (0.6-1.2) L 05/23/25 09:51 Vitals Last Vital Signs Temp 97.8 F 05/24/25 23:54 Pulse 42 L 05/25/25 06:00 Resp 15 05/25/25 09:07 BP 134/52 05/25/25 06:00 Pulse Ox 98 05/25/25 06:00 O2 Del Method Room Air 05/25/25 06:00 O2 Flow Rate 3 05/25/25 05:15 Discharge Plan Discharge Patient Disposition: Xfer Other Condition: Stable Prescriptions: Discontinued digoxin 125 mcg (0.125 mg) tablet 125 mcg PO QAM metoprolol tartrate 25 mg tablet 25 mg PO DAILY PRN (Reason: bp) No Action (DME) Repairs for Walker with 4 wheels and seat See Rx Instructions .Route .MEDSUPPLY Qty: 1 0RF Rx Instructions: Needs brakes repaired. linaclotide 145 mcg capsule 145 mcg PO DAILY Qty: 30 2RF (DME) Walker with 4 wheels and a seat See Rx Instructions .Route .MEDSUPPLY Qty: 1 0RF Rx Instructions: As directed warfarin 5 mg tablet 5 mg PO DAILY Qty: 90 3RF Protocol: Dose Management Condition: Tuesday Dose/Route: 2.5 mg Instruction: 0.5 x 5 mg tablets Condition: Tuesday Dose/Route: 5 mg Instruction: 1 x 5 mg tablet Condition: Tuesday Dose/Route: 5 mg Instruction: 1 x 5 mg tablet Condition: Tuesday Dose/Route: 5 mg Instruction: 1 x 5 mg tablet Condition: Dose/Route: 5 mg Instruction: 1 x 5 mg tablet Condition: Tuesday Dose/Route: 5 mg Instruction: 1 x 5 mg tablet Condition: Tuesday Dose/Route: 5 mg Instruction: 1 x 5 mg tablet Protocol Text: Adjustment Start Date: 05/23/25 INR Value: 1.2 INR Date: 05/23/25 Recheck Date: 05/30/25 Rx Instructions: Take 1 tablet by mouth daily on Tuesday through Tuesday and 2.5mg on Tuesday. potassium chloride [Klor-Con 10] 10 mEq tablet extended release 10 meq PO DAILY Qty: 90 3RF warfarin 4 mg tablet See Rx Instructions .ROUTE .COMPLEX Qty: 90 0RF Protocol: Dose Management Condition: Tuesday Dose/Route: 2.5 mg Instruction: 0.5 x 5 mg tablets Condition: Tuesday Dose/Route: 5 mg Instruction: 1 x 5 mg tablet Condition: Tuesday Dose/Route: 5 mg Instruction: 1 x 5 mg tablet Condition: Tuesday Dose/Route: 5 mg Instruction: 1 x 5 mg tablet Condition: Dose/Route: 5 mg Instruction: 1 x 5 mg tablet Condition: Tuesday Dose/Route: 5 mg Instruction: 1 x 5 mg tablet Condition: Tuesday Dose/Route: 5 mg Instruction: 1 x 5 mg tablet Protocol Text: Adjustment Start Date: 05/23/25 INR Value: 1.2 INR Date: 05/23/25 Recheck Date: 05/30/25 Dose Instruction: TAKE 1 TABLET BY MOUTH DIRECTED Rx Instructions: TAKE 1 TABLET BY MOUTH DIRECTED nitroglycerin [Nitrostat] 0.4 mg tablet, sublingual 0.4 mg SUBLINGUAL Q5M PRN (Reason: Chest Pain) Qty: 60 3RF morphine 60 mg tablet extended release 60 mg PO Q12H 30 Days Qty: 60 0RF hydromorphone [Dilaudid] 4 mg tablet 4 mg PO Q6H PRN (Reason: BREATH THROUGH PAIN) 30 Days Qty: 120 0RF alprazolam 0.5 mg tablet 0.5 mg PO BID PRN (Reason: anxiety) Qty: 60 3RF atorvastatin 40 mg tablet 40 mg PO QPM sennosides [senna] 8.6 mg tablet See Rx Instructions .ROUTE .COMPLEX Rx Instructions: TAKE 1 TO 2 TABLETS BY MOUTH EVERY 6 HOURS NEEDED FOR CONSTIPATION ketoconazole 2 % shampoo 1 applic topical Q7D PRN (Reason: Skin Irritation) triamcinolone acetonide 0.1 % cream 1 applic topical DAILY PRN (Reason: Skin Irritation) magnesium oxide 400 mg (241.3 mg magnesium) tablet 400 mg PO BID tamsulosin 0.4 mg capsule 0.8 mg PO QPM Referrals: Breezy Strange MD [Physician, Cardiology] - 06/26/25 2:00 pm Jesus Nguyen MD [Primary Care Provider, Family Practice] - 05/31/25 8:10 am Discharge Attestations Time Spent in Discharge Care*: greater than 30 min Specific Discharge Activities: educating patient, educating and/or supporting family/caregiver, discussing with pcp/other providers, discussing with manager of case/social workers/dc planners, documenting/other paperwork and evaluating patient/reviewing data Status at Discharge: Cognitive status at discharge: cognitively intact , Behavioral status at discharge: cooperative and independent in ADL's , Quality Metrics Clinical Quality Measures [ No reported AMI, CVA or VTE this stay] Coding Level of Care Code Acute Code for [facility] Fwd Diagnoses Complete heart block I44.2 Subtherapeutic international normalized ratio (INR) R79.1
--- NOTE | 2025-05-25 15:15 | PC.NURSE ---
Pt discharge to care of ambulance crew. Pt to [facility] for Pacemaker. Report given to Lakshmi Tyler RN via telephone. Pt's valuables retrieved from [employer] and given to pt, form signed for return.
--- NOTE | 2025-05-25 16:00 | PC.NURSE ---
[facility], Lakshmi Tyler RN notified of pt's departure immediately post departure. At pt's request his son Arsen Hebert and other family member Latricia Roy both just called and notified of pt's transfer in progress to [facility].
== END 2025-05-25 15:15 | disposition short-term general hospital (02) | DRG 287 ==
LOC: ER 10:54 → CSU 11:00 → ICU 05-25 09:51 → CSU 05-25 11:25
PROVIDERS: Internal Medicine; Nurse Practitioner Family; Admitting Provider Internal Medicine; Emergency Provider Emergency Medicine; PCP Family Medicine; Visit Provider Internal Medicine
PROC: B2111ZZ Fluoroscopy of Multiple Coronary Arteries using Low Osmolar Contrast (ICD-10-PCS; principal; 2025-05-24 12:00)
DX: I44.2 Atrioventricular block, complete (principal); I50.32 Chronic diastolic (congestive) heart failure; R79.1 Abnormal coagulation profile; I45.10 Unspecified right bundle-branch block; G89.29 Other chronic pain; M54.9 Dorsalgia, unspecified; I25.10 Atherosclerotic heart disease of native coronary artery without angina pectoris; I48.91 Unspecified atrial fibrillation; I11.0 Hypertensive heart disease with heart failure; E78.5 Hyperlipidemia, unspecified; F41.9 Anxiety disorder, unspecified; N40.0 Benign prostatic hyperplasia without lower urinary tract symptoms; E66.9 Obesity, unspecified; Z68.30 Body mass index [BMI] 30.0-30.9, adult; J44.9 Chronic obstructive pulmonary disease, unspecified; T45.516A Underdosing of anticoagulants, initial encounter; F11.91 Opioid use, unspecified, in remission; M81.0 Age-related osteoporosis without current pathological fracture; D64.9 Anemia, unspecified; M19.90 Unspecified osteoarthritis, unspecified site; I25.2 Old myocardial infarction; Z79.01 Long term (current) use of anticoagulants; Z91.128 Patient's intentional underdosing of medication regimen for other reason; Z95.2 Presence of prosthetic heart valve; Z95.5 Presence of coronary angioplasty implant and graft; Z86.73 Personal history of transient ischemic attack (TIA), and cerebral infarction without residual deficits; Z87.891 Personal history of nicotine dependence; Z89.412 Acquired absence of left great toe
CPT/HCPCS: 36415; 71045; 80048; 80053; 80162; 81003; 83690; 83735; 84443; 84484; 85014; 85018; 85025; 93005; 93306; 93454; 96372; 99152; 99285; C1769; C1887; C1894; G0378; J0360; J1171; J1265; J1644; J1650; J2250; J2405; J3010; J3490; J7030; J9999; Q0163; Q9967

== ENCOUNTER → 2025-07-01 13:55 | Outpatient (BNVA) | payer OTHER, MEDICAID, SELFPAY | PROVIDERS: PCP Family Medicine; Visit Provider Internal Medicine Cardiovascular Disease | DX: I11.0 Hypertensive heart disease with heart failure (principal); I50.30 Unspecified diastolic (congestive) heart failure; I44.39 Other atrioventricular block; Z79.01 Long term (current) use of anticoagulants; Z95.2 Presence of prosthetic heart valve; Z95.0 Presence of cardiac pacemaker; Z86.73 Personal history of transient ischemic attack (TIA), and cerebral infarction without residual deficits; I25.2 Old myocardial infarction | CPT/HCPCS: 99214 ==